=== PATIENT | male | born 1960 | race Caucasian/White ===

== ENCOUNTER 2020-08-22 10:26 | Outpatient (REF) | payer MEDICAID, SELFPAY ==
--- NOTE | 2020-08-22 10:35 | XR_ITS ---
EXAMINATION: XR CHEST CLINICAL INFORMATION: Moderate persistent asthma with acute exacerbation COMPARISON: Previous chest x-rays most recent April [address] May 2019 TECHNIQUE: 2 views of the chest were obtained. FINDINGS: The cardiac and mediastinal contours are normal. The lungs are clear. There is blunting at the left posterior lateral costophrenic angle questionable for pleural thickening or small left pleural effusion. This appears unchanged. There is no right pleural effusion. There are old bilateral rib fractures. There are degenerative changes of the spine. XR/XR chest 2V IMPRESSION: No evidence for acute disease in the chest. Stable blunting at the left costophrenic angle questionable for small left pleural effusion or pleural thickening.
== END 2020-08-22 10:27 | disposition home or self-care (01) ==
LOC: HO.XRAY 10:26
PROVIDERS: PCP Internal Medicine; Visit Provider Internal Medicine
DX: J45.41 Moderate persistent asthma with (acute) exacerbation (principal)
CPT/HCPCS: 71046

== ENCOUNTER → 2020-08-30 09:27 | Outpatient (BNVA) | payer MEDICAID, SELFPAY | PROVIDERS: PCP Internal Medicine; Visit Provider Surgery | DX: M79.5 Residual foreign body in soft tissue (principal) | CPT/HCPCS: 99202 ==

== ENCOUNTER → 2020-09-14 14:39 | Outpatient (BNVA) | payer MEDICAID, SELFPAY | PROVIDERS: PCP Internal Medicine; Visit Provider Hospitalist | DX: G47.33 Obstructive sleep apnea (adult) (pediatric) (principal); R93.89 Abnormal findings on diagnostic imaging of other specified body structures; R07.1 Chest pain on breathing; Z99.89 Dependence on other enabling machines and devices | CPT/HCPCS: 99212 ==

== ENCOUNTER 2020-10-03 12:28 | Outpatient (REF) | payer MEDICAID, SELFPAY ==
[2020-10-03 12:37] VITALS: BMI 40.6
[2020-10-03 12:38] VITALS: BP 142/85; PULSE 98; RESP 18; TEMP 37; O2SAT 95
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
== END 2020-10-03 12:29 | disposition home or self-care (01) ==
LOC: HO.MS 12:28
PROVIDERS: PCP Internal Medicine; Visit Provider Surgery
PROC: (CPT 10120; principal; 2020-10-03 13:50)
DX: M79.5 Residual foreign body in soft tissue (principal); Z18.12 Retained nonmagnetic metal fragments; G47.33 Obstructive sleep apnea (adult) (pediatric); R91.1 Solitary pulmonary nodule; E66.01 Morbid (severe) obesity due to excess calories; Z85.05 Personal history of malignant neoplasm of liver
CPT/HCPCS: 10120; 88304; 88305

== ENCOUNTER 2021-02-26 09:57 | Outpatient (REF) | payer MEDICAID, SELFPAY ==
[2021-02-26 12:09] LABS: MANUAL DIFF FLAG NO
[2021-02-26 12:11] LABS: Basophils Percent Auto 0.5 % (0-2); Eosinophils Absolute Auto 0.2 X10*3/uL (0.0-0.4); Eosinophils Percent Auto 1.8 % (0-4); Hematocrit 38.7 % (42-52); Hemoglobin 12.5 g/dl (14.0-18.0); Imm Gran Abs Auto 0.05 X10*3/uL (0.00-0.03); Imm Gran Pct Auto 0.6 % (0.0-0.4); Lymphocytes Absolute Auto 2.3 X10*3/uL (1.2-4.9); Lymphocytes Percent Auto 26.7 % (20-40); Mean Corpuscular HGB Conc 32.3 g/dl (31.0-36.0); Mean Corpuscular Hemoglobin 28.5 pg (27.0-33.0); Mean Corpuscular Volume 88.4 fL (80-98); Mean Platelet Volume 10.8 fL (9.4-12.4); Monocytes Absolute Auto 0.6 X10*3/uL (0.1-1.2); Monocytes Percent Auto 7.2 % (2-11); Neutrophils Absolute Auto 5.4 X10*3/uL (2.0-8.3); Neutrophils Percent Auto 63.2 % (45-73); Platelet Count 238 X10*3/uL (160-400); Red Blood Count 4.38 X10*6/uL (4.60-5.80); Red Cell Distribution Width 14.8 % (11.0-16.0); White Blood Count 8.5 X10*3/uL (4.8-10.8)
[2021-02-26 12:19] LABS: D Dimer 396 NG/ML
[2021-02-26 12:28] LABS: Anion Gap 12 (12-20); Blood Urea Nitrogen 12 mg/dL (9-16); Calcium 8.8 mg/dL (8.4-10.2); Carbon Dioxide 25 mmol/L (22-29); Chloride 107 mmol/L (96-108); Estimated Glomerular Filt Rate > 60; Glucose Random 139 mg/dL (60-115); Potassium 4.1 mmol/L (3.3-5.1); Sodium 140 mmol/L (135-145)
[2021-02-26 12:34] LABS: B Type Natriuretic Peptide 12 pg/mL (<100); Troponin-I High Sensitivity 9.5 ng/L (<3.5-35.0)
[2021-02-26 13:29] LABS: Erythrocyte Sedimentation Rate 40 MM/HR (0-15)
== END 2021-02-26 09:58 | disposition home or self-care (01) ==
LOC: HO.LAB 09:57
PROVIDERS: PCP Internal Medicine; Visit Provider Hospitalist
DX: R07.1 Chest pain on breathing (principal); R78.89 Finding of other specified substances, not normally found in blood; R93.89 Abnormal findings on diagnostic imaging of other specified body structures; G47.33 Obstructive sleep apnea (adult) (pediatric); R91.8 Other nonspecific abnormal finding of lung field; M79.5 Residual foreign body in soft tissue; Z99.89 Dependence on other enabling machines and devices
CPT/HCPCS: 36415; 80048; 83880; 84484; 85025; 85379; 85652; 99212

== ENCOUNTER 2021-02-27 15:46 | Outpatient (REF) | payer MEDICAID, SELFPAY ==
--- NOTE | ~2021-02-27 | CT_ITS ---
EXAMINATION: CT ANGIOGRAM OF THE CHEST WITH AND WITHOUT CONTRAST (CT PULMONARY ANGIOGRAM FOR PE) CLINICAL INFORMATION: Reason for Exam CP, ELEVATED D DIMER COMPARISON: None TECHNIQUE: Prior to contrast administration, noncontrast localization images were obtained. Subsequently, multidetector volumetric imaging was performed from the thoracic inlet to below the diaphragms following the administration of 80 mL Omnipaque 350 intravenous contrast. No contrast reaction reported Sagittal, coronal, and MIP oblique sagittal reformatted images were obtained on the CT workstation, uploaded to PACS, and reviewed. This CT examination was performed using dose optimization techniques as appropriate, variously including the following: *Automated exposure control *Adjustment of mA and/or kV according to patient size (this includes techniques or standardized protocols for targeted exams where dose is matched to indication/reason for exam; i.e. extremities or head) *Use of iterative reconstruction technique Total exam dose-length product 260 mGy-cm FINDINGS: QUALITY OF STUDY/CONTRAST BOLUS: Satisfactory. PULMONARY ARTERIES: No central or segmental pulmonary emboli. THORACIC AORTA: No aneurysm or dissection. LUNG: No focal consolidation, nodules or masses. PLEURA: No pleural effusion or pneumothorax. MEDIASTINUM: Normal heart size. No pericardial effusion. No hilar or mediastinal lymphadenopathy. No evidence of septal bowing or right heart strain. CHEST WALL/AXILLA: No axillary or internal mammary lymphadenopathy. OSSEOUS STRUCTURES: There is a left lateral bony fusion of fifth and sixth ribs. UPPER ABDOMEN: The liver is diffusely attenuated and mildly enlarged consistent with hepatic steatosis. Areas of focal fatty sparing in the left hepatic lobe. Anterior to the right hepatic lobe is a peritoneal nodule measuring 1 cm on axial image 39/6. No reflux of contrast into the hepatic veins to suggest elevated right heart pressures. CT/CT angio chest PE protocol IMPRESSION: No evidence of PE. No evidence of aortic dissection. The lungs are clear. VTE: negative.
[2021-02-27] MEDS: iohexoL 350 MG/ML 100 ML INFUS..BTL IV (16:28)
== END 2021-02-27 15:47 | disposition home or self-care (01) ==
LOC: HO.CT 15:46
PROVIDERS: Visit Provider Hospitalist
DX: R07.9 Chest pain, unspecified (principal); R06.00 Dyspnea, unspecified; R78.89 Finding of other specified substances, not normally found in blood
CPT/HCPCS: 71275; Q9967

== ENCOUNTER → 2021-02-28 10:06 | Outpatient (BNVA) | payer MEDICAID, SELFPAY | PROVIDERS: PCP Internal Medicine; Visit Provider Anesthesiology | DX: G89.4 Chronic pain syndrome (principal); M17.0 Bilateral primary osteoarthritis of knee; M46.1 Sacroiliitis, not elsewhere classified; C22.9 Malignant neoplasm of liver, not specified as primary or secondary | CPT/HCPCS: 99212 ==

== ENCOUNTER 2021-05-07 06:19 | Outpatient (REF) | payer MEDICAID, SELFPAY ==
--- NOTE | ~2021-05-07 | FL_ITS ---
EXAMINATION: XR FLUOROSCOPY WITH IMAGES CLINICAL INFORMATION: Sacroiliitis. COMPARISON: None. TECHNIQUE: Fluoroscopy performed by Griselda Bansal NP. Fluoroscopy time: 0.5 minutes DAP: 4.61 Gycm2 Images: 2 FINDINGS: There is a needle and contrast injection over the inferior bilateral sacroiliac joints. FL/FL guidance in treatment room IMPRESSION: Fluoroscopy guidance for sacroiliac joint pain management procedure.
== END 2021-05-07 06:20 | disposition home or self-care (01) ==
LOC: HO.RADIR 06:19
PROVIDERS: Visit Provider Anesthesiology
DX: M46.1 Sacroiliitis, not elsewhere classified (principal); M17.0 Bilateral primary osteoarthritis of knee; G89.4 Chronic pain syndrome; C22.9 Malignant neoplasm of liver, not specified as primary or secondary
CPT/HCPCS: 27096; J3300; Q9967

== ENCOUNTER → 2021-06-14 10:39 | Outpatient (BNVA) | payer MEDICAID, SELFPAY | PROVIDERS: PCP Internal Medicine; Visit Provider Hospitalist | DX: R91.8 Other nonspecific abnormal finding of lung field (principal); R07.1 Chest pain on breathing; R93.89 Abnormal findings on diagnostic imaging of other specified body structures; G47.33 Obstructive sleep apnea (adult) (pediatric); Z99.89 Dependence on other enabling machines and devices | CPT/HCPCS: 99212 ==

== ENCOUNTER 2021-07-10 12:54 | Outpatient (REF) | payer MEDICAID, SELFPAY ==
--- NOTE | ~2021-07-10 | XR_ITS ---
EXAMINATION: XR TIBIA FIBULA RIGHT XR KNEE RIGHT XR ANKLE LEFT CLINICAL INFORMATION: Pain of the right knee and right leg. Pain of left ankle and left foot COMPARISON: Prior radiographs of right knee from 01/03/2020 TECHNIQUE: Right knee, 4 views Right leg, 2 views Left ankle, 3 views FINDINGS: Right knee: No new findings compared to 01/03/2020. Small joint effusion is present. Again noted is tricompartmental osteophyte formation, nonuniform narrowing of joint spaces and intra-articular osteochondral bodies. No acute fracture. No suspicious lytic or blastic lesion. Right tibia-fibula: Tibia and fibula are intact. No fracture or periostitis. Bones have normal alignment at the ankle. There are small enthesophytes of the posterior and plantar surfaces of the calcaneus. Small well-corticated ossicles project distal to the fibular tip. No acute fracture in this area. The tibial and peroneal arteries of the leg are calcified. Left ankle: Alignment is normal. The talar dome is well-positioned within the ankle mortise. Small marginal osteophytes of the mildly degenerated ankle. The ankle joint space is maintained. Small Achilles insertion enthesophyte is noted. Small dorsal osteophytes are noted at the talonavicular, navicular-cuneiform and tarsometatarsal joints. Peripheral vascular calcifications are seen. XR/XR ankle LT min 3V IMPRESSION: * Chronic moderate to severe tricompartmental osteoarthritis of the right knee. * The right tibia and fibula are intact. No fracture or malalignment in the lower extremity. * Mild osteoarthritis of the left ankle. Small osteophytes also noted at the joints of the midfoot.
--- NOTE | ~2021-07-10 | XR_ITS ---
EXAMINATION: XR TIBIA FIBULA RIGHT XR KNEE RIGHT XR ANKLE LEFT CLINICAL INFORMATION: Pain of the right knee and right leg. Pain of left ankle and left foot COMPARISON: Prior radiographs of right knee from 01/03/2020 TECHNIQUE: Right knee, 4 views Right leg, 2 views Left ankle, 3 views FINDINGS: Right knee: No new findings compared to 01/03/2020. Small joint effusion is present. Again noted is tricompartmental osteophyte formation, nonuniform narrowing of joint spaces and intra-articular osteochondral bodies. No acute fracture. No suspicious lytic or blastic lesion. Right tibia-fibula: Tibia and fibula are intact. No fracture or periostitis. Bones have normal alignment at the ankle. There are small enthesophytes of the posterior and plantar surfaces of the calcaneus. Small well-corticated ossicles project distal to the fibular tip. No acute fracture in this area. The tibial and peroneal arteries of the leg are calcified. Left ankle: Alignment is normal. The talar dome is well-positioned within the ankle mortise. Small marginal osteophytes of the mildly degenerated ankle. The ankle joint space is maintained. Small Achilles insertion enthesophyte is noted. Small dorsal osteophytes are noted at the talonavicular, navicular-cuneiform and tarsometatarsal joints. Peripheral vascular calcifications are seen. XR/XR knee RT 4V IMPRESSION: * Chronic moderate to severe tricompartmental osteoarthritis of the right knee. * The right tibia and fibula are intact. No fracture or malalignment in the lower extremity. * Mild osteoarthritis of the left ankle. Small osteophytes also noted at the joints of the midfoot.
--- NOTE | ~2021-07-10 | XR_ITS ---
EXAMINATION: XR TIBIA FIBULA RIGHT XR KNEE RIGHT XR ANKLE LEFT CLINICAL INFORMATION: Pain of the right knee and right leg. Pain of left ankle and left foot COMPARISON: Prior radiographs of right knee from 01/03/2020 TECHNIQUE: Right knee, 4 views Right leg, 2 views Left ankle, 3 views FINDINGS: Right knee: No new findings compared to 01/03/2020. Small joint effusion is present. Again noted is tricompartmental osteophyte formation, nonuniform narrowing of joint spaces and intra-articular osteochondral bodies. No acute fracture. No suspicious lytic or blastic lesion. Right tibia-fibula: Tibia and fibula are intact. No fracture or periostitis. Bones have normal alignment at the ankle. There are small enthesophytes of the posterior and plantar surfaces of the calcaneus. Small well-corticated ossicles project distal to the fibular tip. No acute fracture in this area. The tibial and peroneal arteries of the leg are calcified. Left ankle: Alignment is normal. The talar dome is well-positioned within the ankle mortise. Small marginal osteophytes of the mildly degenerated ankle. The ankle joint space is maintained. Small Achilles insertion enthesophyte is noted. Small dorsal osteophytes are noted at the talonavicular, navicular-cuneiform and tarsometatarsal joints. Peripheral vascular calcifications are seen. XR/XR tibia fibula RT 2V IMPRESSION: * Chronic moderate to severe tricompartmental osteoarthritis of the right knee. * The right tibia and fibula are intact. No fracture or malalignment in the lower extremity. * Mild osteoarthritis of the left ankle. Small osteophytes also noted at the joints of the midfoot.
== END 2021-07-10 12:55 | disposition home or self-care (01) ==
LOC: HO.XRAY 12:54
PROVIDERS: Visit Provider Internal Medicine
DX: M25.561 Pain in right knee (principal); M25.572 Pain in left ankle and joints of left foot; M79.604 Pain in right leg
CPT/HCPCS: 73564; 73590; 73610

== ENCOUNTER → 2021-09-12 10:08 | Outpatient (BNVA) | payer MEDICAID, SELFPAY | PROVIDERS: PCP Internal Medicine; Visit Provider Hospitalist | DX: J45.40 Moderate persistent asthma, uncomplicated (principal); G47.33 Obstructive sleep apnea (adult) (pediatric); Z99.89 Dependence on other enabling machines and devices | CPT/HCPCS: 99212 ==

== ENCOUNTER 2022-04-11 09:36 | Outpatient (REF) | payer MEDICAID, SELFPAY ==
[2022-04-11 09:57] LABS: MANUAL DIFF FLAG NO
[2022-04-11 10:51] LABS: Basophils Percent Auto 0.2 % (0-2); Eosinophils Absolute Auto 0.1 X10*3/uL (0.0-0.4); Hematocrit 37.4 % (42.0-52.0); Hemoglobin 12.2 g/dl (14.0-18.0); Imm Gran Abs Auto 0.02 X10*3/uL (0.00-0.03); Imm Gran Pct Auto 0.4 % (0.0-0.4); Lymphocytes Absolute Auto 2.1 X10*3/uL (1.2-4.9); Lymphocytes Percent Auto 40.7 % (20-40); Mean Corpuscular HGB Conc 32.6 g/dl (31.0-36.0); Mean Corpuscular Hemoglobin 29.2 pg (27.0-33.0); Mean Corpuscular Volume 89.5 fL (80.0-98.0); Mean Platelet Volume 11.4 fL (9.4-12.4); Monocytes Absolute Auto 0.6 X10*3/uL (0.1-1.2); Neutrophils Absolute Auto 2.4 x10*3/uL (2.0-8.3); Neutrophils Percent Auto 45.7 % (45-73); Platelet Count 205 X10*3/uL (160-400); Red Blood Count 4.18 X10*6/uL (4.60-5.80); Red Cell Distribution Width 14.2 % (11.0-16.0); White Blood Count 5.2 X10*3/uL (4.8-10.8)
[2022-04-11 11:23] LABS: Alanine Aminotransferase 32 U/L (0-40); Albumin Level 3.5 g/dL (3.5-5.0); Alkaline Phosphatase 117 U/L (39-117); Anion Gap 13 (12-20); Aspartate Amino Transferase 30 U/L (5-37); Bilirubin Total 0.6 mg/dL (0.0-1.0); Blood Urea Nitrogen 11 mg/dL (9-16); Calcium 8.4 mg/dL (8.4-10.2); Carbon Dioxide 25 mmol/L (22-29); Chloride 104 mmol/L (96-108); Estimated Glomerular Filt Rate > 60; Glucose Random 145 mg/dL (60-115); Potassium 3.8 mmol/L (3.3-5.1); Sodium 138 mmol/L (135-145)
[2022-04-11 11:41] LABS: Estimated Average Glucose 200 mg/dL; Hemoglobin A1c % 8.6 %
== END 2022-04-11 09:37 | disposition home or self-care (01) ==
LOC: HO.LAB 09:36
PROVIDERS: PCP Internal Medicine; Visit Provider Surgery
DX: R10.9 Unspecified abdominal pain (principal); E66.01 Morbid (severe) obesity due to excess calories; Z68.36 Body mass index [BMI] 36.0-36.9, adult; K42.9 Umbilical hernia without obstruction or gangrene; J45.40 Moderate persistent asthma, uncomplicated; C22.9 Malignant neoplasm of liver, not specified as primary or secondary; R06.00 Dyspnea, unspecified; G47.33 Obstructive sleep apnea (adult) (pediatric); R91.1 Solitary pulmonary nodule; E11.9 Type 2 diabetes mellitus without complications; Z99.89 Dependence on other enabling machines and devices
CPT/HCPCS: 36415; 80053; 83036; 85025; 99202

== ENCOUNTER 2022-05-01 09:00 | Outpatient (REF) | payer MEDICAID, SELFPAY ==
--- NOTE | ~2022-05-01 | CT_ITS ---
EXAMINATION: CT ABDOMEN AND PELVIS WITHOUT CONTRAST CLINICAL INFORMATION: Umbilical hernia without obstruction or gangrene. COMPARISON: CT abdomen pelvis 07/19/2019. TECHNIQUE: Multidetector volumetric imaging was performed from the superior aspect of the liver through the pubic symphysis. Sagittal and coronal reformatted images were obtained on the technologist's workstation. This CT examination was performed using dose optimization techniques as appropriate, variously including the following: *Automated exposure control *Adjustment of mA and/or kV according to patient size (this includes techniques or standardized protocols for targeted exams where dose is matched to indication/reason for exam; i.e. extremities or head) *Use of iterative reconstruction technique DLP: 818 mGy-cm FINDINGS: LUNG BASES: Platelike atelectatic changes left lung base. Right lung base is clear. There are old healed bilateral posterior rib fractures, likely ninth ribs. LIVER, GALLBLADDER, AND BILIARY TREE: The liver is normal in size, shape, and diffusely attenuated with a focal area of normal density scattered throughout the right and left hepatic lobes likely normal hepatic parenchyma. It is unchanged from 2019. No focal hepatic lesion or biliary ductal dilatation is present. The gallbladder is unremarkable with no evidence of radiopaque gallstones, gallbladder wall thickening, or obvious pericholecystic inflammatory changes. PANCREAS: Unremarkable. SPLEEN: Unremarkable. ADRENAL GLANDS: Unremarkable. KIDNEYS AND URETERS: The kidneys are normal in size, shape, and attenuation. There is a punctate 1 mm radiopaque calcification or stone upper pole left kidney. No additional radiopaque calculi or calcification seen. No hydronephrosis or hydroureter. No perinephric stranding. There is partially exophytic 4.3 cm cyst along the posterior upper/mid cortex right kidney. BLADDER: Unremarkable. GASTROINTESTINAL TRACT: There is scattered stool and gas seen throughout the colon without significant distention. Surgical sutures are seen along the proximal ascending colon with patent lumen. The small bowel loops are normal caliber. Appendix is not visualized. ABDOMINAL WALL: There is a small midline scrotal hernia containing fat on sagittal image 122/5. LYMPH NODES: Normal. VASCULAR: Unremarkable. PELVIC VISCERA: Unremarkable. OSSEOUS STRUCTURES: There are degenerative disc changes and vacuum disc phenomena L5-S1, L4-L5 and L3-L4 disc levels and mild spondylosis. No aggressive lytic or sclerotic process seen. CT/CT abdomen pelvis wo IV con IMPRESSION: Small midline supraumbilical abdominal wall hernia containing fat. Suspect 1-3 mm radiopaque calculi/calcification upper pole left kidney. No hydroureteronephrosis in either side. Simple cyst mid/lower pole right kidney. Fleischner guidelines were followed.
== END 2022-05-01 09:01 | disposition home or self-care (01) ==
LOC: HO.CT 09:00
PROVIDERS: PCP Internal Medicine; Visit Provider Surgery
DX: E66.01 Morbid (severe) obesity due to excess calories (principal); K42.9 Umbilical hernia without obstruction or gangrene; G47.33 Obstructive sleep apnea (adult) (pediatric); Z99.89 Dependence on other enabling machines and devices
CPT/HCPCS: 74176

== ENCOUNTER → 2022-05-08 15:18 | Outpatient (BNVA) | payer MEDICAID, SELFPAY | PROVIDERS: PCP Internal Medicine; Visit Provider Hospitalist | DX: G47.33 Obstructive sleep apnea (adult) (pediatric) (principal); J45.40 Moderate persistent asthma, uncomplicated; R07.9 Chest pain, unspecified; Z99.89 Dependence on other enabling machines and devices | CPT/HCPCS: 99212 ==

== ENCOUNTER 2022-05-09 10:07 | Outpatient (REF) | payer MEDICAID, SELFPAY ==
--- NOTE | ~2022-05-09 | XR_ITS ---
EXAMINATION: XR CHEST CLINICAL INFORMATION: Chest pain. COMPARISON: CT angiogram of February 27, 2021 and chest x-ray of August 22, 2020 TECHNIQUE: 2 views of the chest were obtained. FINDINGS: There is chronic pleural-parenchymal disease seen at the left base. Old healed rib fractures evident. Calcification anterior longitudinal ligament noted mid thoracic spine. Heart normal size. No evidence of pulmonary edema. No pneumothorax. XR/XR chest 2V IMPRESSION: No acute parenchymal disease. Chronic findings as described.
== END 2022-05-09 10:08 | disposition home or self-care (01) ==
LOC: HO.XRAY 10:07
PROVIDERS: Visit Provider Hospitalist
DX: R07.9 Chest pain, unspecified (principal); K42.9 Umbilical hernia without obstruction or gangrene; E66.01 Morbid (severe) obesity due to excess calories; E11.65 Type 2 diabetes mellitus with hyperglycemia; Z71.3 Dietary counseling and surveillance
CPT/HCPCS: 71046; 99212

== ENCOUNTER 2022-08-08 13:21 | Outpatient (REF) | payer MEDICAID, SELFPAY ==
[2022-08-08 14:16] LABS: MANUAL DIFF FLAG NO
[2022-08-08 14:32] LABS: Basophils Absolute Auto 0.1 X10*3/uL (0.0-0.2); Eosinophils Absolute Auto 0.2 X10*3/uL (0.0-0.4); Eosinophils Percent Auto 1.9 % (0-4); Hematocrit 41.9 % (42.0-52.0); Hemoglobin 13.4 g/dl (14.0-18.0); Imm Gran Abs Auto 0.02 X10*3/uL (0.00-0.03); Imm Gran Pct Auto 0.2 % (0.0-0.4); Lymphocytes Absolute Auto 2.3 X10*3/uL (1.2-4.9); Lymphocytes Percent Auto 27.2 % (20-40); Mean Corpuscular Hemoglobin 28.9 pg (27.0-33.0); Mean Corpuscular Volume 90.3 fL (80.0-98.0); Mean Platelet Volume 10.9 fL (9.4-12.4); Monocytes Absolute Auto 0.7 X10*3/uL (0.1-1.2); Monocytes Percent Auto 8.1 % (2-11); Neutrophils Absolute Auto 5.2 x10*3/uL (2.0-8.3); Neutrophils Percent Auto 61.6 % (45-73); Platelet Count 237 X10*3/uL (160-400); Red Blood Count 4.64 X10*6/uL (4.60-5.80); Red Cell Distribution Width 13.6 % (11.0-16.0); White Blood Count 8.4 X10*3/uL (4.8-10.8)
[2022-08-08 14:43] LABS: Amphetamine Screen Urine Not Detected (Not Detect); Barbiturates, Urine Not Detected (Not Detect); Benzodiazepines Screen Urine Not Detected (Not Detect); Cannabinoid Screen Urine Not Detected (Not Detect); Cocaine Screen Urine POSITIVE (Not Detect); Fentanyl, urine Not Detected (Not Detect); Opiate Screen Urine Not Detected (Not Detect); Phencyclidine Screen Urine Not Detected (Not Detect)
[2022-08-08 14:45] LABS: Partial Thromboplastin Time 28.1 SEC (26.0-36.4)
[2022-08-08 14:46] LABS: Estimated Average Glucose 206 mg/dL; Hemoglobin A1c % 8.8 %
[2022-08-08 14:54] LABS: Alanine Aminotransferase 26 U/L (0-40); Albumin Level 3.7 g/dL (3.5-5.0); Alkaline Phosphatase 127 U/L (39-117); Anion Gap 11 (12-20); Aspartate Amino Transferase 26 U/L (5-37); Bilirubin Total 0.6 mg/dL (0.0-1.0); Blood Urea Nitrogen 13 mg/dL (9-16); Calcium 9.5 mg/dL (8.4-10.2); Carbon Dioxide 31 mmol/L (22-29); Chloride 106 mmol/L (96-108); Estimated Glomerular Filt Rate > 60; Glucose Random 117 mg/dL (60-115); Potassium 4.6 mmol/L (3.3-5.1); Sodium 143 mmol/L (135-145); Total Protein 8.1 g/dL (6.5-8.0)
[2022-08-12 18:54] LABS: Cotinine, U 15 ng/mL; Nicotine, U <2 ng/mL
== END 2022-08-08 13:22 | disposition home or self-care (01) ==
LOC: HO.LAB 13:21
PROVIDERS: PCP Internal Medicine; Visit Provider Surgery
DX: K42.9 Umbilical hernia without obstruction or gangrene (principal); D64.9 Anemia, unspecified; R07.9 Chest pain, unspecified; E11.65 Type 2 diabetes mellitus with hyperglycemia; J45.40 Moderate persistent asthma, uncomplicated; C22.9 Malignant neoplasm of liver, not specified as primary or secondary; R06.00 Dyspnea, unspecified; E66.01 Morbid (severe) obesity due to excess calories; R91.1 Solitary pulmonary nodule; R91.8 Other nonspecific abnormal finding of lung field; Z99.89 Dependence on other enabling machines and devices; Z79.899 Other long term (current) drug therapy
CPT/HCPCS: 80053; 80307; 80323; 83036; 84134; 85025; 85610; 85730; 99212

== ENCOUNTER → 2022-08-22 12:48 | Outpatient (BNVA) | payer MEDICAID, SELFPAY | PROVIDERS: PCP Nurse Practitioner Primary Care; Visit Provider Dietitian, Registered | DX: E66.01 Morbid (severe) obesity due to excess calories (principal) | CPT/HCPCS: 97802 ==

== ENCOUNTER → 2022-11-11 15:08 | Outpatient (BNVA) | payer MEDICAID, SELFPAY | PROVIDERS: PCP Nurse Practitioner Primary Care; Visit Provider Hospitalist | DX: J45.40 Moderate persistent asthma, uncomplicated (principal); G47.33 Obstructive sleep apnea (adult) (pediatric); R06.00 Dyspnea, unspecified; Z99.89 Dependence on other enabling machines and devices | CPT/HCPCS: 99212 ==

== ENCOUNTER → 2023-01-14 10:15 | Outpatient (BNVA) | payer MEDICAID, SELFPAY | PROVIDERS: PCP Nurse Practitioner Primary Care; Visit Provider Surgery | DX: K42.9 Umbilical hernia without obstruction or gangrene (principal); E11.65 Type 2 diabetes mellitus with hyperglycemia; D64.9 Anemia, unspecified; J45.40 Moderate persistent asthma, uncomplicated; G89.4 Chronic pain syndrome; C22.9 Malignant neoplasm of liver, not specified as primary or secondary; G47.33 Obstructive sleep apnea (adult) (pediatric); E66.01 Morbid (severe) obesity due to excess calories; F14.10 Cocaine abuse, uncomplicated; R07.9 Chest pain, unspecified; R06.00 Dyspnea, unspecified; R91.1 Solitary pulmonary nodule; R91.8 Other nonspecific abnormal finding of lung field; Z99.89 Dependence on other enabling machines and devices; Z68.39 Body mass index [BMI] 39.0-39.9, adult | CPT/HCPCS: 99212 ==

== ENCOUNTER 2023-05-25 07:30 | Outpatient (REF) | payer MEDICAID, SELFPAY ==
[2023-05-25 07:45] LABS: MANUAL DIFF FLAG NO
[2023-05-25 08:39] LABS: Basophils Absolute Auto 0.1 X10*3/uL (0.0-0.2); Basophils Percent Auto 0.7 % (0-2); Eosinophils Absolute Auto 0.2 X10*3/uL (0.0-0.4); Eosinophils Percent Auto 2.8 % (0-4); Hematocrit 39.7 % (42.0-52.0); Hemoglobin 12.9 g/dl (14.0-18.0); Imm Gran Abs Auto 0.03 X10*3/uL (0.00-0.03); Imm Gran Pct Auto 0.4 % (0.0-0.4); Lymphocytes Absolute Auto 2.3 X10*3/uL (1.2-4.9); Lymphocytes Percent Auto 30.3 % (20-40); Mean Corpuscular HGB Conc 32.5 g/dl (31.0-36.0); Mean Corpuscular Hemoglobin 29.4 pg (27.0-33.0); Mean Corpuscular Volume 90.4 fL (80.0-98.0); Mean Platelet Volume 11.3 fL (9.4-12.4); Monocytes Absolute Auto 0.7 X10*3/uL (0.1-1.2); Monocytes Percent Auto 9.2 % (2-11); Neutrophils Absolute Auto 4.3 x10*3/uL (2.0-8.3); Neutrophils Percent Auto 56.6 % (45-73); Platelet Count 234 X10*3/uL (160-400); Red Blood Count 4.39 X10*6/uL (4.60-5.80); Red Cell Distribution Width 13.7 % (11.0-16.0); White Blood Count 7.6 X10*3/uL (4.8-10.8)
[2023-05-25 08:45] LABS: Estimated Average Glucose 177 mg/dL; Hemoglobin A1c % 7.8 % (<6.0)
[2023-05-25 09:00] LABS: Amphetamine Screen Urine Not Detected (Not Detect); Barbiturates, Urine Not Detected (Not Detect); Benzodiazepines Screen Urine Not Detected (Not Detect); Cannabinoid Screen Urine Not Detected (Not Detect); Cocaine Screen Urine POSITIVE (Not Detect); Fentanyl, urine Not Detected (Not Detect); Opiate Screen Urine Not Detected (Not Detect); Phencyclidine Screen Urine Not Detected (Not Detect)
[2023-05-25 09:03] LABS: Alanine Aminotransferase 28 U/L (0-40); Albumin Level 3.4 g/dL (3.5-5.0); Alkaline Phosphatase 147 U/L (39-117); Anion Gap 12 (12-20); Aspartate Amino Transferase 22 U/L (5-37); Bilirubin Total 0.5 mg/dL (0.0-1.0); Blood Urea Nitrogen 10 mg/dL (9-16); Calcium 8.9 mg/dL (8.4-10.2); Carbon Dioxide 24 mmol/L (22-29); Chloride 106 mmol/L (96-108); Estimated Glomerular Filt Rate > 60; Glucose Random 194 mg/dL (60-115); Potassium 3.5 mmol/L (3.3-5.1); Sodium 138 mmol/L (135-145)
[2023-05-31 01:58] LABS: Cotinine, U 16 ng/mL; Nicotine, U 5 ng/mL
== END 2023-05-25 07:31 | disposition home or self-care (01) ==
LOC: HO.LAB 07:30
PROVIDERS: Visit Provider Surgery
DX: K42.9 Umbilical hernia without obstruction or gangrene (principal); E11.65 Type 2 diabetes mellitus with hyperglycemia; D64.9 Anemia, unspecified; F14.10 Cocaine abuse, uncomplicated; J45.909 Unspecified asthma, uncomplicated; G89.4 Chronic pain syndrome; C22.9 Malignant neoplasm of liver, not specified as primary or secondary; G47.33 Obstructive sleep apnea (adult) (pediatric); E66.01 Morbid (severe) obesity due to excess calories; Z99.89 Dependence on other enabling machines and devices
CPT/HCPCS: 80053; 80307; 80323; 83036; 84134; 85025

== ENCOUNTER 2023-05-27 10:39 | Outpatient (AMB) | payer MEDICAID, SELFPAY ==
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
[2023-05-27 10:41] VITALS: BP 144/71; PULSE 95; TEMP 37.4; O2SAT 95; BMI 39.2
== END 2023-05-27 10:59 | disposition home or self-care (01) ==
PROVIDERS: PCP Nurse Practitioner Primary Care; Visit Provider Surgery
DX: E11.65 Type 2 diabetes mellitus with hyperglycemia (principal); K42.9 Umbilical hernia without obstruction or gangrene; D64.9 Anemia, unspecified; F14.10 Cocaine abuse, uncomplicated; G47.33 Obstructive sleep apnea (adult) (pediatric); Z99.89 Dependence on other enabling machines and devices; Z72.0 Tobacco use
CPT/HCPCS: 99214

== ENCOUNTER → 2023-05-27 10:39 | Outpatient (BNVA) | payer MEDICAID, SELFPAY | PROVIDERS: PCP Nurse Practitioner Primary Care; Visit Provider Surgery | DX: K42.9 Umbilical hernia without obstruction or gangrene (principal); E11.65 Type 2 diabetes mellitus with hyperglycemia; D64.9 Anemia, unspecified; F14.10 Cocaine abuse, uncomplicated; G47.33 Obstructive sleep apnea (adult) (pediatric); Z99.89 Dependence on other enabling machines and devices; Z72.0 Tobacco use | CPT/HCPCS: 99212 ==

== ENCOUNTER 2023-06-24 08:01 | Outpatient (AMB) | payer MEDICAID, SELFPAY ==
--- NOTE | 2023-06-24 08:26 | MHC.OFFVIS ---
Intake Vital Signs 06/24/23 08:27 Height 5 ft 9 in Weight 265 lb 6.985 oz BMI 39.2 BP 128/70 Blood Pressure Location Lt brachial Position Sitting Pulse 83 Pulse Source Pulse Oximeter Pulse Oximetry (%) 96 Oxygen Delivery Method Room Air Intake Visit Reasons: Shortness of breath Web Retailer Required: No Allergies No Known Allergies Allergy (Verified 06/24/23 08:29) HPI HPI Comments History of Present Illness Details The patient is a 62-year-old gentleman with ongoing respiratory issues. He complains of significant shortness of breath with minimal activity. Moderate in severity. He was admitted to [facility] for his worsening symptoms. During that evaluation he did undergo a CT scan of the chest ruling out pulmonary emboli or active pulmonary disease. Of note he did have some fatty infiltration of the liver with multiple lesions consistent with this history of hepatocellular carcinoma. The patient did not qualify for oxygen was discharged home. In the meantime the patient did have a sleep study at [facility] for ongoing symptoms of sleep apnea which include daytime drowsiness and elevated [place] score of 12/24. He was noted to have significant sleep apnea. And the recommendation is for him to start CPAP therapy as soon as possible. In the office we also performed a 6 minutes walk test due to his shortness of breath. Again, he desaturated down to the low 90s but does not qualify for oxygen supplementation. He started having difficulties tolerating CPAP. He states that he was waking up for short of breath with it. He wasn't sure if he was getting too little pressure. We did download the machine in appears that his average pressure 9.8. Therefore, changes machine to CPAP set up with a pressure of 10 cm and a ramp of 8 cm. He will try that and bring the machine in few weeks to see if we need to further adjusted. 11/11/2022 the patient is here for a pulmonary follow-up visit. The patient has been struggling with multiple things. Having significant shortness of breath even with minimal activity. Also complains palpitations. He has been struggling with his CPAP. Seems like sometimes he wakes up very short of breath while using the CPAP almost like the machine is not able to getting pressures that adequate to treat his of obstructive apnea and waking up with an apneic episodes. I did download the machine. It appears that his machine is set up with a minimum pressure of 12 and a maximum pressure of 18. However, the machine staying at a pressure of 12. Does not appear to be regulating. This is an old machine greater than 5 years old. It may be that is no longer working effectively. Will increase the pressure at this time to 14-18. However, based on the fact does not appear to be working appropriately and also request a new replacement APAP for him. I know that he has been very adherent to the therapy in the fact that it is not working and increasing the pressures that he needs it is a problem. The patient is also struggling with his weight. He has to lose weight in order to undergo a hernia repair. He has already lost around 20 lb. He continues with respiratory therapy. In the office visit we did go for brief walking oximetry. He maintained a good pulse ox of 95% although he was tachycardic up to 116 with minimal activity. He appears to be volume overloaded will give him another few days of Lasix to try to improve his volume status. Patient also has chest congestion go ahead and treat his and chronic bronchitis and will also optimize his respiratory therapy. I am hopeful we can improve his breathing in order for him to stay active continues to lose weight. 06/24/2023 the patient is here for a pulmonary follow-up visit. The patient has been doing well from a respiratory standpoint. Patient has been using his inhalers as prescribed. He has not required her short-acting beta agonists and has not required any prednisone or antibiotics. He has also been using CPAP regularly. He uses it every night more than 4 hours and also uses it during the daytime as needed. He finds it very helpful. He has not been able to get any supplies. We did request a replacement machine during the last visit but he did not get 1. Will go ahead and continue to work with his older machine that is still working partially. Will go ahead and request additional supplies however to make sure that he continues to be functional. The patient will be following up with his surgeon regarding his hepatocellular carcinoma and also considering bariatric surgery. The patient is also following up closely with orthopedic surgery regarding his arthritis of the knees. Clinically from a respiratory status the patient is doing well may be able to proceed with surgery. [facility] Medical History Chest pain Asthma Sacroiliitis Chronic pain syndrome Bilateral primary osteoarthritis of knee Liver cancer Dyspnea Chest pain Abnormal chest x-ray DIANNA on CPAP Abnormal chest x-ray with multiple lung nodules Lung nodule seen on imaging study Foreign body (FB) in soft tissue Liver cancer Morbid obesity Surgical History History of incisional hernia repair (10/05/18) History of lung surgery Alcohol intake: never Patient Tobacco Use Status: Never used Tobacco Review of Systems Const Denies daytime sleepiness, Denies excessive sweating, Denies fatigue, Denies snoring, Denies stops breathing during sleep and Reports weight loss Eyes Denies change in vision ENT Reports Normal hearing present Card Reports chest pain, Denies chest pain with activity, Denies diaphoresis, Denies syncope, Denies rapid heart rate, Denies pedal edema, Reports dyspnea and Reports dyspnea on exertion Resp Denies chest congestion, Reports cough, Denies hemoptysis, Denies pain on inspiration, Denies pain with cough, Reports dyspnea, Reports dyspnea on exertion, Denies snoring and Reports wheezing GI Denies abdominal pain, Denies belching, Denies melena and Denies bloating Denies urinary incontinence Musc Reports as per HPI Neuro Reports Normal hearing present, Denies confusion, Denies syncope, Denies memory loss, Denies seizure-like activity and Denies Sensory deficit (Neuro) Psych Denies confusion, Denies irritability, Denies anhedonia, Denies memory loss, Denies visual hallucinations, Denies hallucinations, Denies tactile hallucinations, Denies homicidal ideation and Denies suicidal ideation Endo Denies excessive sweating and Denies fatigue Aller/Immun Reports wheezing Physical Exam Vital Signs: Last Vital Signs Pulse 83 06/24/23 08:27 BP 128/70 06/24/23 08:27 Pulse Ox 96 06/24/23 08:27 Oxygen Delivery Method Room Air 06/24/23 08:27 BMI result Body Mass Index 39.2 Const General: No confusion Orientation/consciousness: No confusion HEENT General nose exam: Abnormal external nose present and Nasal discharge present Chest Chest palpation & inspection: normal inspection of the chest Resp Auscultation: no rales, no rhonchi, no wheezes and diminished lung sounds Cardio Rate: regular rate Rhythm: regular rhythm Heart sounds: S1 normal heart sound present and S2 normal heart sound present GI Palpation (GI): Soft to palpation and nontender Auscultation: normal bowel sounds Neuro General: No confusion Cranial nerves: Yes Normal hearing present Sensory Exam: No Sensory deficit (Neuro) Office Procedures Flu Questionnaire Does the patient have a severe egg allergy?: No Does the patient have severe life threatening allergies?: No Does the patient have a fever or illness today?: No Has the patient ever had Guillain-Mize Syndrome?: No Has the patient ever had any past reaction to a flu shot?: No Immunizations flu vacc [id number] 6mos up(PF) 60 mcg(15 mcgx4)/0.5 mL IM syringe Performing Provider: Terry Torrez MD [place] [facility] [place] [facility] Administered by: Luisa Barfield LPN on 06/24/23 08:45 Dose Route Admin Location Dispensed Lot Number Expiration Date NDC Lead Cargo Mover 0.5 mL IM Left Deltoid 0.5 mL [id number] 01/31/24 47125-593-69 [employer] VIS Given Date VIS Provided VIS Publication Date 06/24/23 Single Vaccine 21 Eligibility Eligibility Date Funding Source Not [facility] Eligible 06/24/23 Private Assessment & Plan Assessment & Plan (1) DIANNA on CPAP: Code(s): G47.33 - Obstructive sleep apnea (adult) (pediatric); Z99.89 - Dependence on other enabling machines and devices (2) Asthma: Code(s): J45.909 - Unspecified asthma, uncomplicated Qualifiers: Asthma complication type: uncomplicated Asthma persistence: persistent Asthma severity: moderate Qualified Code(s): J45.40 - Moderate persistent asthma, uncomplicated (3) Dyspnea: Code(s): R06.00 - Dyspnea, unspecified Qualifiers: Dyspnea type: dyspnea on exertion Qualified Code(s): R06.09 - Other forms of dyspnea (4) Liver cancer: Code(s): C22.9 - Malignant neoplasm of liver, not specified as primary or secondary Qualifiers: Liver malignancy type: hepatocellular carcinoma Qualified Code(s): C22.0 - Liver cell carcinoma Plan Low sodium diet continue Trelegy GEMMA as needed continue APAP 14-18, needs supplies gabapentin at night to improve sleep anf neuro pathic pain F/U 6 months Orders: Orders Influenza Immunization 06/24/23 J45.909 - Unspecified asthma, uncomplicated Coding Level of Care Code Est Pt Level 4 (74268) Diagnoses DIANNA on CPAP G47.33; Z99.89 Moderate persistent asthma without complication J45.40 Asthma complication type: uncomplicated Asthma persistence: persistent Asthma severity: moderate Dyspnea on exertion R06.09 Dyspnea type: dyspnea on exertion Hepatocellular carcinoma C22.0 Liver malignancy type: hepatocellular carcinoma Time Spent (min) 16
[2023-06-24 08:27] VITALS: BP 128/70; PULSE 83; O2SAT 96; BMI 39.2
== END 2023-06-24 09:07 | disposition home or self-care (01) ==
PROVIDERS: PCP Nurse Practitioner Primary Care; Referring Provider Nurse Practitioner Primary Care; Visit Provider Hospitalist
DX: G47.33 Obstructive sleep apnea (adult) (pediatric) (principal); Z99.89 Dependence on other enabling machines and devices; J45.40 Moderate persistent asthma, uncomplicated; R06.09 Other forms of dyspnea; C22.0 Liver cell carcinoma
CPT/HCPCS: 99214

== ENCOUNTER → 2023-06-24 08:01 | Outpatient (BNVA) | payer MEDICAID, SELFPAY | PROVIDERS: PCP Nurse Practitioner Primary Care; Visit Provider Hospitalist | DX: J45.40 Moderate persistent asthma, uncomplicated (principal); R06.09 Other forms of dyspnea; G47.33 Obstructive sleep apnea (adult) (pediatric); C22.0 Liver cell carcinoma; Z99.89 Dependence on other enabling machines and devices; Z23 Encounter for immunization | CPT/HCPCS: 90471; 90686; 99212 ==

== ENCOUNTER 2023-08-18 14:45 | Outpatient (REF) | payer MEDICAID, SELFPAY ==
--- NOTE | ~2023-08-18 | XR_ITS ---
EXAMINATION: XR HAND, LEFT XR WRIST, LEFT CLINICAL INFORMATION: Fall. Left wrist and hand pain. COMPARISON: Plain film of the left hand dated November 02, 2018. TECHNIQUE: PA, lateral, and oblique views of the left hand. PA, lateral, and oblique views of the left wrist. XR/XR hand LT min 3V FINDINGS/IMPRESSION: The fingers overlap on another on lateral view, limiting the study. Examination demonstrates severe osteoarthritis involving the first carpal-metacarpal joint, with associated subluxation, similar compared with November 02, 2018. There may be mild degenerative changes of the STT joint, worse. Severe degenerative changes involve the second through fifth PIP and DIP joints, worse. Suspect negative ulnar variance. No acute fracture or dislocation identified. Small vessel arterial calcification suggests diabetic and/or renal calcific atherosclerosis.
--- NOTE | ~2023-08-18 | XR_ITS ---
EXAMINATION: XR HAND, LEFT XR WRIST, LEFT CLINICAL INFORMATION: Fall. Left wrist and hand pain. COMPARISON: Plain film of the left hand dated November 02, 2018. TECHNIQUE: PA, lateral, and oblique views of the left hand. PA, lateral, and oblique views of the left wrist. XR/XR wrist LT min 3V FINDINGS/IMPRESSION: The fingers overlap on another on lateral view, limiting the study. Examination demonstrates severe osteoarthritis involving the first carpal-metacarpal joint, with associated subluxation, similar compared with November 02, 2018. There may be mild degenerative changes of the STT joint, worse. Severe degenerative changes involve the second through fifth PIP and DIP joints, worse. Suspect negative ulnar variance. No acute fracture or dislocation identified. Small vessel arterial calcification suggests diabetic and/or renal calcific atherosclerosis.
== END 2023-08-18 14:46 | disposition home or self-care (01) ==
LOC: HO.HHCX 14:45
PROVIDERS: Visit Provider Nurse Practitioner Primary Care
DX: M25.532 Pain in left wrist (principal)
CPT/HCPCS: 73110; 73130

== ENCOUNTER 2023-12-11 13:26 | Outpatient (REF) | payer MEDICAID, SELFPAY ==
[2023-12-11 15:11] LABS: MANUAL DIFF FLAG NO
[2023-12-11 15:45] LABS: Basophils Absolute Auto 0.1 X10*3/uL (0.0-0.2); Basophils Percent Auto 0.7 % (0-2); Eosinophils Absolute Auto 0.2 X10*3/uL (0.0-0.4); Hematocrit 39.3 % (42.0-52.0); Hemoglobin 12.9 g/dl (14.0-18.0); Imm Gran Abs Auto 0.05 X10*3/uL (0.00-0.03); Imm Gran Pct Auto 0.6 % (0.0-0.4); Lymphocytes Absolute Auto 2.7 X10*3/uL (1.2-4.9); Lymphocytes Percent Auto 31.8 % (20-40); Mean Corpuscular HGB Conc 32.8 g/dl (31.0-36.0); Mean Corpuscular Hemoglobin 29.3 pg (27.0-33.0); Mean Corpuscular Volume 89.1 fL (80.0-98.0); Mean Platelet Volume 11.3 fL (9.4-12.4); Monocytes Absolute Auto 0.7 X10*3/uL (0.1-1.2); Neutrophils Absolute Auto 4.8 x10*3/uL (2.0-8.3); Neutrophils Percent Auto 56.9 % (45-73); Platelet Count 241 X10*3/uL (160-400); Red Blood Count 4.41 X10*6/uL (4.60-5.80); Red Cell Distribution Width 13.6 % (11.0-16.0); White Blood Count 8.5 X10*3/uL (4.8-10.8)
[2023-12-11 16:17] LABS: Uric Acid 4.3 mg/dL (3.4-7.0)
[2023-12-11 16:18] LABS: Alanine Aminotransferase 23 U/L (0-40); Albumin Level 3.5 g/dL (3.5-5.0); Alkaline Phosphatase 141 U/L (39-117); Anion Gap 13 (12-20); Aspartate Amino Transferase 20 U/L (5-37); Bilirubin Total 0.4 mg/dL (0.0-1.0); Blood Urea Nitrogen 9 mg/dL (9-16); C Reactive Protein 1.22 mg/dL (< or = 0.50); Calcium 8.8 mg/dL (8.4-10.2); Carbon Dioxide 24 mmol/L (22-29); Chloride 105 mmol/L (96-108); Estimated Glomerular Filt Rate > 60; Glucose Random 174 mg/dL (60-115); Potassium 3.9 mmol/L (3.3-5.1); Sodium 138 mmol/L (135-145); Total Protein 8.2 g/dL (6.5-8.0)
[2023-12-11 16:19] LABS: Rheumatoid Factor < 13.0 IU/mL (<15.0)
[2023-12-11 16:33] LABS: Erythrocyte Sedimentation Rate 44 MM/HR (0-15)
[2023-12-13 08:18] LABS: Anti Nuclear Antibody Screen NEGATIVE (NEGATIVE)
[2023-12-14 14:33] LABS: Cyclic Citrullinated Peptide <16 UNITS
[2023-12-15 10:48] LABS: IgA 512 mg/dL (70-320); IgG 2495 mg/dL (600-1540); IgM 50 mg/dL (50-300)
[2023-12-15 17:19] LABS: Complement C3 123 mg/dL (82-185)
[2023-12-15 17:59] LABS: Prot Elec - Albumin 3.4 g/dL (3.8-4.8); Prot Elec - Alpha1 0.3 g/dL (0.2-0.3); Prot Elec - Alpha2 0.7 g/dL (0.5-0.9); Prot Elec - Beta 1 0.4 g/dL (0.4-0.6); Prot Elec - Beta 2 0.5 g/dL (0.2-0.5); Prot Elec - Gamma 2.2 g/dL (0.8-1.7); Prot Elec - Total Protein 7.5 g/dL (6.1-8.1)
[2023-12-17 08:04] LABS: Anti DNA DS Antibody 1 IU/mL; Antibody to SS-A Antigen <1.0 NEG AI (<1.0 NEG); Antibody to SS-B Antigen <1.0 NEG AI (<1.0 NEG); SM/Ribonucleoprotein Ab <1.0 NEG AI (<1.0 NEG); Smith Protein <1.0 NEG AI (<1.0 NEG)
== END 2023-12-11 13:27 | disposition home or self-care (01) ==
LOC: HO.LAB 13:26
PROVIDERS: PCP Nurse Practitioner Primary Care; Visit Provider Nurse Practitioner Family
DX: M25.531 Pain in right wrist (principal); M25.532 Pain in left wrist; M79.89 Other specified soft tissue disorders; E11.69 Type 2 diabetes mellitus with other specified complication; E78.5 Hyperlipidemia, unspecified
CPT/HCPCS: 36415; 80053; 82784; 84165; 84550; 85025; 85652; 86038; 86140; 86160; 86200; 86225; 86235; 86334; 86431; 99212

== ENCOUNTER 2023-12-11 13:26 | Outpatient (AMB) | payer MEDICAID, SELFPAY ==
--- NOTE | 2023-12-11 13:27 | A.OFFVIS_ITS ---
Vital Signs 12/11/23 13:28 Height 5 ft 9 in Weight 263 lb 10.766 oz BMI 38.9 BP 98/88 Blood Pressure Location Rt brachial Position Sitting Pulse 86 Pulse Source Pulse Oximeter Pulse Oximetry (%) 98 Oxygen Delivery Method Room Air Intake Visit Reasons: left wrist pain/UNABLE TO CONFIRM Intake Note: New patient, externally referred, presents to office today for joint pain. Per incoming records, patient has severe arthritis on left hand/wrist . XR's scanned in. 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 He describes pain and swelling for the last 3 years to his hand and wrist and has no treatment per patient. for his hands He has a history of liver cancer treated with chemo. He takes Oxycodone for pain. He has seen Orthopedic in the past, and was given a knee brace for his knee. He has also seen pain management and has received non-corticosteroid injections to the SI joint. Per pain management: 02/28/2021 Pain Management: Back/Spine/Pelvis Other: No tenderness on palpation in paraspinal spinal region in lumbar spine. Loading test is negative Range of motion in lumbar spine is limited. Tad test is Positive bilaterally. pelvic compression test is positive bilaterally. Palpation of bilateral sacroiliac joints projection to the skin in his back is very tender. Kelly finger test is positive bilaterally He also is a patient of [facility] and he is under observation of Dr. Connell oncologist at [facility]. 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 He reports that his liver metastases are still very small and well controlled. However nevertheless he is still a cancer patient with liver Mets. 06/2023 Pulmonary Visit: The patient is a 62-year-old gentleman with ongoing respiratory issues. He complains of significant shortness of breath with minimal activity. Moderate in severity. He was admitted to [facility] for his worsening symptoms. During that evaluation he did undergo a CT scan of the chest ruling out pulmonary emboli or active pulmonary disease. Of note he did have some fatty infiltration of the liver with multiple lesions consistent with this history of hepatocellular carcinoma. The patient did not qualify for oxygen was discharged home. In the meantime the patient did have a sleep study at [facility] for ongoing symptoms of sleep apnea which include daytime drowsiness and elevated [place] score of 12/24. He was noted to have significant sleep apnea. And the recommendation is for him to start CPAP therapy as soon as possible. In the office we also performed a 6 minutes walk test due to his shortness of breath. Again, he desaturated down to the low 90s but does not qualify for oxygen supplementation. He started having difficulties tolerating CPAP. He states that he was waking up for short of breath with it. He wasn't sure if he was getting too little pressure. We did download the machine in appears that his average pressure 9.8. Therefore, changes machine to CPAP set up with a pressure of 10 cm and a ramp of 8 cm. He will try that and bring the machine in few weeks to see if we need to further adjusted. [facility] Medical History (Updated 01/10/24 @ 21:46 by NIRALI Michaels) Metastatic colon cancer to liver Seronegative inflammatory arthritis Pain of both wrist joints Bilateral hand swelling Arthritis Chest pain Asthma Sacroiliitis Chronic pain syndrome Bilateral primary osteoarthritis of knee Liver cancer Dyspnea Chest pain Abnormal chest x-ray DIANNA on CPAP Abnormal chest x-ray with multiple lung nodules Lung nodule seen on imaging study Foreign body (FB) in soft tissue Liver cancer Morbid obesity Surgical History History of incisional hernia repair (10/05/18) History of lung surgery Family History (Updated 12/11/23 @ 13:38 by JACKIE Wheeler) Brother Arthritis Social History Alcohol intake: never Patient Tobacco Use Status: Never used Tobacco Review of Systems Const All systems reviewed & are unremarkable except as noted in HPI and below Physical Exam Vital Signs: Last Vital Signs Pulse 86 12/11/23 13:28 BP 98/88 12/11/23 13:28 Pulse Ox 98 12/11/23 13:28 Oxygen Delivery Method Room Air 05/10/24 13:28 BMI result Body Mass Index 38.9 APPEARANCE: Patient in no acute distress EYES no redness, normal EARS:? External ear normal. NOSE/SINUS:? Airflow through both nares, no nasal discharge, no bleeding THROAT:? Oral mucosa moist, no ulcerations NECK:? No thyromegaly or masses, no adenopathy, trachea midline. HEART:? Regular rhythm, S1-S2 heard, no murmurs, rubs or gallops. LUNG:? Clear to percussion and auscultation, decreased in the bases EXTREMITIES:? No edema, no calf tenderness, normal peripheral pulses. NEURO:? Oriented and alert x3.? No focal weakness.? Reflexes symmetric.? walks with cane SKIN:? There are no skin lesions evident. No objective signs of Raynaud's phenomenon. JOINT EXAM: Cervical Spine:.? Full range of motion without pain; no tenderness. Thoracic Spine:.? No scoliosis.? No tenderness on palpation. Lumbar Spine:.? Alignment normal.? decrease range of motion with tenderness on palpation Chest Wall:.? No tenderness, swelling, increased warmth or erythema. Hands:.? decreased range of motion with tenderness, swelling, increased warmth and erythema. 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 Wrists:.? decreased range of motion with tenderness, swelling, increased warmth or erythema. Elbows:. Normal pain-free range of motion without tenderness, swelling, increased warmth or erythema. Shoulders:.?? Full range of motion without pain. No tenderness, weakness, swelling, increased warmth or erythema. Hips:.? Full range of motion with pain to coccyx Hip bursa:.? No tenderness. Knees:.?? decrease range of motion with mild tenderness around joint lline but no, swelling, increased warmth or erythema.? There is no effusion or crepitation Ankles:.? Normal pain-free range of motion without tenderness, swelling, increased warmth or erythema. Feet:.? Normal pain-free range of motion without tenderness, swelling, increased warmth or erythema. Results Reviewed Results Reviewed: [address] [address] XRay Report Signed Patient: Zuhair Hartman MR#: [id number] : 1960 Acct:[id number] Age/Sex: 63 / M ADM Date: 08/18/23 Loc: HO.[facility]HCX Attending Dr: Jayme Schaefer NP Ordering Physician: JAYME SCHAEFER NP Date of Service: 08/18/23 Procedure(s): XR hand LT min 3V Accession Number(s): [id number] cc: JAYME SCHAEFER NP~ EXAMINATION: XR HAND, LEFT XR WRIST, LEFT CLINICAL INFORMATION: Fall. Left wrist and hand pain. COMPARISON: Plain film of the left hand dated November 02, 2018. TECHNIQUE: PA, lateral, and oblique views of the left hand. PA, lateral, and oblique views of the left wrist. XR/XR hand LT min 3V FINDINGS/IMPRESSION: The fingers overlap on another on lateral view, limiting the study. Examination demonstrates severe osteoarthritis involving the first carpal-metacarpal joint, with associated subluxation, similar compared with November 02, 2018. There may be mild degenerative changes of the STT joint, worse. Severe degenerative changes involve the second through fifth PIP and DIP joints, worse. Suspect negative ulnar variance. No acute fracture or dislocation identified. Small vessel arterial calcification suggests diabetic and/or renal calcific atherosclerosis. Laboratory Tests 12/11/23 15:09 WBC 8.5 RBC 4.41 L Hgb 12.9 L Hct 39.3 L ESR 44 H Creatinine 0.86 Uric Acid 4.3 AST 20 ALT 23 C-Reactive Protein 1.22 H Total Protein 8.2 H Assessment & Plan Assessment & Plan (1) Pain of both wrist joints: Code(s): M25.531 - Pain in right wrist; M25.532 - Pain in left wrist Category: Medical (2) Bilateral hand swelling: Code(s): M79.89 - Other specified soft tissue disorders Category: Medical (3) Seronegative inflammatory arthritis: Code(s): M13.80 - Other specified arthritis, unspecified site Category: Medical (4) Metastatic colon cancer to liver: Code(s): C18.9 - Malignant neoplasm of colon, unspecified; C78.7 - Secondary malignant neoplasm of liver and intrahepatic bile duct Category: Medical Plan #Seronegative Inflammatory Arthritis: Mr. Maldonado has swollen, warmth erythematous fingers and wrists. It is clear he has an inflammatory arthritis with a tenosynovitis presentation. He has also been assessed as having sacroilliitis in the past, and does have tenderness to the SI joint on PE and therefore clinically presenting as seronegative inflammatory arthritis at this time. I will obtain labs for further evaluation and prescribe him a course of prednisone to help give relief to his hands. Given his history of liver (mets) and colon cancer, and prior treatment course of chemo, we will be judicious about starting any immunosuppressive therapy. He has elevated ESR/CRP, IgG and IgA. Low dose prednisone may be the choice for halfway treatment given he is under surveillance for mets to the liver. A discussion with his cancer team would be needed for any consideration to start immunomodulator therapy. #T2DM: Discussed with patient possible side effects of prednisone on BS levels. Patient will monitor levels. #Hand OA: Review of images from 08/2023 and 2020 shows severe OA the Left CMC joint with subluxation and to Left hand IP joints and wrist. I spent 40 minutes reviewing history, evaluating patient and documenting f/u 4 months Orders: Orders Comprehensive Met. Panel 12/11/23 - Other specified soft tissue disorders, M25.531 - Pain in right wrist, M25.532 - Pain in left wrist Complement C4 12/11/23 - Other specified soft tissue disorders, M25.531 - Pain in right wrist, M25.532 - Pain in left wrist Complement C3 12/11/23 - Other specified soft tissue disorders, M25.531 - Pain in right wrist, M25.532 - Pain in left wrist Anti Extractable Nuclear Ag 12/11/23 - Other specified soft tissue disorders, M25.531 - Pain in right wrist, M25.532 - Pain in left wrist Anti DNA DS Antibody 12/11/23 - Other specified soft tissue disorders, M25.531 - Pain in right wrist, M25.532 - Pain in left wrist Erythrocyte Sedimentation Rate 12/11/23 - Other specified soft tissue disorders, M25.531 - Pain in right wrist, M25.532 - Pain in left wrist Uric Acid 12/11/23 - Other specified soft tissue disorders, M25.531 - Pain in right wrist, M25.532 - Pain in left wrist Cyclic Citrullinated Peptide 12/11/23 - Other specified soft tissue disorders, M25.531 - Pain in right wrist, M25.532 - Pain in left wrist Rheumatoid Factor 12/11/23 - Other specified soft tissue disorders, M25.531 - Pain in right wrist, M25.532 - Pain in left wrist Complete Blood Count Auto Diff 12/11/23 - Other specified soft tissue disorders, M25.531 - Pain in right wrist, M25.532 - Pain in left wrist VENKATESH Reflex Titer and Pattern 12/11/23 - Other specified soft tissue disorders, M25.531 - Pain in right wrist, M25.532 - Pain in left wrist Immunofixation Pnl, Serum 12/11/23 - Other specified soft tissue disorders, M25.531 - Pain in right wrist, M25.532 - Pain in left wrist Immunoglobulins,IgG IgA IgM 12/11/23 - Other specified soft tissue disorders, M25.531 - Pain in right wrist, M25.532 - Pain in left wrist Sjogren's Antibodies 12/11/23 - Other specified soft tissue disorders, M25.531 - Pain in right wrist, M25.532 - Pain in left wrist Protein Electrophoresis, Serum 12/11/23 - Other specified soft tissue disorders, M25.531 - Pain in right wrist, M25.532 - Pain in left wrist C Reactive Protein 12/11/23 - Other specified soft tissue disorders, M25.531 - Pain in right wrist, M25.532 - Pain in left wrist Coding Level of Care Code New Pt Level 4 (51570) Complex EM visit Add On G2211 Diagnoses Pain of both wrist joints M25.531; M25.532 Bilateral hand swelling . Seronegative inflammatory arthritis M13.80 Metastatic colon cancer to liver C18.9; C78.7
[2023-12-11 13:28] VITALS: BP 98/88; PULSE 86; O2SAT 98; BMI 38.9
== END 2023-12-11 14:16 | disposition home or self-care (01) ==
LOC: HO.RHE 13:26
PROVIDERS: PCP Nurse Practitioner Primary Care; Visit Provider Nurse Practitioner Family
DX: M25.531 Pain in right wrist (principal); M25.532 Pain in left wrist; M79.89 Other specified soft tissue disorders; M13.80 Other specified arthritis, unspecified site; C18.9 Malignant neoplasm of colon, unspecified; C78.7 Secondary malignant neoplasm of liver and intrahepatic bile duct
CPT/HCPCS: 99204

== ENCOUNTER 2023-12-29 09:20 | Outpatient (AMB) | payer MEDICAID, SELFPAY ==
[2023-12-29 09:35] VITALS: PULSE 83; O2SAT 94; BMI 32.5
--- NOTE | 2023-12-29 09:35 | A.OFFVIS_ITS ---
Vital Signs 12/29/23 09:35 Height 5 ft 9 in Weight 220 lb BMI 32.5 Pulse 83 Pulse Source Pulse Oximeter Pulse Oximetry (%) 94 Oxygen Delivery Method Room Air Intake Visit Reasons: Shortness of breath Parking Assistant Required: No Allergies No Known Allergies Allergy (Verified 12/29/23 09:36) HPI Comments Details: The patient is a 63-year-old gentleman with ongoing respiratory issues. He complains of significant shortness of breath with minimal activity. Moderate in severity. He was admitted to [facility] for his worsening symptoms. During that evaluation he did undergo a CT scan of the chest ruling out pulmonary emboli or active pulmonary disease. Of note he did have some fatty infiltration of the liver with multiple lesions consistent with this history of hepatocellular carcinoma. The patient did not qualify for oxygen was discharged home. In the meantime the patient did have a sleep study at [facility] for ongoing symptoms of sleep apnea which include daytime drowsiness and elevated [place] score of 12/24. He was noted to have significant sleep apnea. And the recommendation is for him to start CPAP therapy as soon as possible. In the office we also performed a 6 minutes walk test due to his shortness of breath. Again, he desaturated down to the low 90s but does not qualify for oxygen supplementation. He started having difficulties tolerating CPAP. He states that he was waking up for short of breath with it. He wasn't sure if he was getting too little pressure. We did download the machine in appears that his average pressure 9.8. Therefore, changes machine to CPAP set up with a pressure of 10 cm and a ramp of 8 cm. He will try that and bring the machine in few weeks to see if we need to further adjusted. 11/11/2022 the patient is here for a pulmonary follow-up visit. The patient has been struggling with multiple things. Having significant shortness of breath even with minimal activity. Also complains palpitations. He has been struggling with his CPAP. Seems like sometimes he wakes up very short of breath while using the CPAP almost like the machine is not able to getting pressures that adequate to treat his of obstructive apnea and waking up with an apneic episodes. I did download the machine. It appears that his machine is set up with a minimum pressure of 12 and a maximum pressure of 18. However, the mac son staying at a pressure of 12. Does not appear to be regulating. This is an old machine greater than 5 years old. It may be that is no longer working effectively. Will increase the pressure at this time to 14-18. However, based on the fact does not appear to be working appropriately and also request a new replacement APAP for him. I know that he has been very adherent to the therapy in the fact that it is not working and increasing the pressures that he needs it is a problem. The patient is also struggling with his weight. He has to lose weight in order to undergo a hernia repair. He has already lost around 20 lb. He continues with respiratory therapy. In the office visit we did go for brief walking oximetry. He maintained a good pulse ox of 95% although he was tachycardic up to 116 with minimal activity. He appears to be volume overloaded will give him another few days of Lasix to try to improve his volume status. Patient also has chest congestion go ahead and treat his and chronic bronchitis and will also optimize his respiratory therapy. I am hopeful we can improve his breathing in order for him to stay active continues to lose weight. 06/24/2023 the patient is here for a pulmonary follow-up visit. The patient has been doing well from a respiratory standpoint. Patient has been using his inhalers as prescribed. He has not required her short-acting beta agonists and has not required any prednisone or antibiotics. He has also been using CPAP regularly. He uses it every night more than 4 hours and also uses it during the daytime as needed. He finds it very helpful. He has not been able to get any supplies. We did request a replacement machine during the last visit but he did not get 1. Will go ahead and continue to work with his older machine that is still working partially. Will go ahead and request additional supplies however to make sure that he continues to be functional. The patient will be following up with his surgeon regarding his hepatocellular carcinoma and also considering bariatric surgery. The patient is also following up closely with orthopedic surgery regarding his arthritis of the knees. Clinically from a resp iratory status the patient is doing well may be able to proceed with surgery. 12/29/2023 the patient is here for a pulmonary follow-up visit. Overall he is doing better from a respiratory status. He continues uses respiratory medications with good effect. Still having shortness of breath with activity. In addition to that he has been using the CPAP. The CPAP therapy has been affecting beneficial. Although seems be shutting off on him at times and he is concerned because sometimes he wakes up short of breath with the machine shut off. I did try to download the data. He needs to use it more than what he is using right now. He understands use has use it at least 4 hours a night. He is going to work on that. In the meantime he needs to get supplies. I will request supplies from [employer]. The patient has had this machine since 06/22/2019. He understands that if he were to get a new 1 able to have to be after 5 years. Therefore, will follow-up in 6 months and at that point the machine still not working well we can request a replacement machine. [facility] Medical History (Updated 12/11/23 @ 14:02 by CHRIS Michaels-) Pain of both wrist joints Bilateral hand swelling Arthritis Chest pain Asthma Sacroiliitis Chronic pain syndrome Bilateral primary osteoarthritis of knee Liver cancer Dyspnea Chest pain Abnormal chest x-ray DIANNA on CPAP Abnormal chest x-ray with multiple lung nodules Lung nodule seen on imaging study Foreign body (FB) in soft tissue Liver cancer Morbid obesity Surgical History (Reviewed 05/27/23 @ 10:48 by Yanet White [facility]) History of incisional hernia repair (10/05/18) History of lung surgery Family History (Updated 12/11/23 @ 13:38 by Kwadwo Carrero [facility]) Brother Arthritis Social History (Reviewed 05/27/23 @ 10:48 by Yanet White [facility]) Alcohol intake: never Patient Tobacco Use Status: Never used Tobacco Review of Systems Const Denies daytime sleepiness, Denies excessive sweating, Denies fatigue, Denies snoring, Denies stops breathing during sleep and Reports weight loss Eyes Denies change in vision ENT Reports Normal hearing present Card Reports chest pain, Denies chest pain with activity, Denies diaphoresis, Denies syncope, Denies rapid heart rate, Denies pedal edema, Reports dyspnea and Reports dyspnea on exertion Resp Denies chest congestion, Reports cough, Denies hemoptysis, Denies pain on inspiration, Denies pain with cough, Reports dyspnea, Reports dyspnea on exertion, Denies snoring and Reports wheezing GI Denies abdominal pain, Denies belching, Denies melena and Denies bloating Denies urinary incontinence Musc Reports as per HPI Neuro Reports Normal hearing present, Denies confusion, Denies syncope, Denies memory loss, Denies seizure-like activity and Denies Sensory deficit (Neuro) Psych Denies confusion, Denies irritability, Denies anhedonia, Denies memory loss, Denies visual hallucinations, Denies hallucinations, Denies tactile hallucinations, Denies homicidal ideation and Denies suicidal ideation Endo Denies excessive sweating and Denies fatigue Aller/Immun Reports wheezing Physical Exam Vital Signs: Last Vital Signs Pulse 83 12/29/23 09:35 Pulse Ox 94 12/29/23 09:35 Oxygen Delivery Method Room Air 12/29/23 09:35 BMI result Body Mass Index 32.5 Const General: No confusion Orientation/consciousness: No confusion HEENT General nose exam: Abnormal external nose present and Nasal discharge present Chest Chest palpation & inspection: normal inspection of the chest Resp Auscultation: no rales, no rhonchi, no wheezes and diminished lung sounds Cardio Rate: regular rate Rhythm: regular rhythm Heart sounds: S1 normal heart sound present and S2 normal heart sound present GI Palpation (GI): Soft to palpation and nontender Auscultation: normal bowel sounds Neuro General: No confusion Cranial nerves: Yes Normal hearing present Sensory Exam: No Sensory deficit (Neuro) Assessment & Plan Assessment & Plan (1) DIANNA on CPAP: Code(s): G47.33 - Obstructive sleep apnea (adult) (pediatric); Z99.89 - Dependence on other enabling machines and devices Category: Medical (2) Asthma: Code(s): J45.909 - Unspecified asthma, uncomplicated Category: Medical Qualifiers: Asthma complication type: uncomplicated Asthma persistence: persistent Asthma severity: moderate Qualified Code(s): J45.40 - Moderate persistent asthma, uncomplicated (3) Dyspnea: Code(s): R06.00 - Dyspnea, unspecified Category: Medical Qualifiers: Dyspnea type: dyspnea on exertion Qualified Code(s): R06.09 - Other forms of dyspnea (4) Liver cancer: Code(s): C22.9 - Malignant neoplasm of liver, not specified as primary or secondary Category: Medical Qualifiers: Liver malignancy type: hepatocellular carcinoma Qualified Code(s): C22.0 - Liver cell carcinoma Plan Low sodium diet continue Trelegy GEMMA as needed continue APAP 14-18, needs supplies gabapentin at night to improve sleep anf neuro pathic pain F/U 6 months Coding Level of Care Code Est Pt Level 4 (96647) Diagnoses DIANNA on CPAP G47.33; Z99.89 Moderate persistent asthma without complication J45.40 Asthma complication type: uncomplicated Asthma persistence: persistent Asthma severity: moderate Dyspnea on exertion R06.09 Dyspnea type: dyspnea on exertion Hepatocellular carcinoma C22.0 Liver malignancy type: hepatocellular carcinoma Time Spent (min) 16
== END 2023-12-29 09:50 | disposition home or self-care (01) ==
PROVIDERS: PCP Nurse Practitioner Primary Care; Visit Provider Hospitalist
DX: G47.33 Obstructive sleep apnea (adult) (pediatric) (principal); Z99.89 Dependence on other enabling machines and devices; J45.40 Moderate persistent asthma, uncomplicated; R06.09 Other forms of dyspnea; C22.0 Liver cell carcinoma
CPT/HCPCS: 99214

== ENCOUNTER → 2023-12-29 09:20 | Outpatient (BNVA) | payer MEDICAID, SELFPAY | PROVIDERS: PCP Nurse Practitioner Primary Care; Visit Provider Hospitalist | DX: R06.09 Other forms of dyspnea (principal); J45.40 Moderate persistent asthma, uncomplicated; G47.33 Obstructive sleep apnea (adult) (pediatric); C22.0 Liver cell carcinoma; Z99.89 Dependence on other enabling machines and devices | CPT/HCPCS: 99212 ==

== ENCOUNTER 2024-01-13 13:49 | Outpatient (AMB) | payer MEDICAID, SELFPAY ==
--- NOTE | 2024-01-13 14:26 | A.OFFVIS_ITS ---
Vital Signs 01/13/24 14:36 Height 5 ft 9 in Weight 259 lb 11.272 oz BMI 38.3 BP 142/60 H Blood Pressure Location Rt brachial Position Sitting Pulse 80 Pulse Source Pulse Oximeter Pulse Oximetry (%) 96 Oxygen Delivery Method Room Air Intake Visit Reasons: Hand and wrist pain and swelling Intake Note: Patient last seen 12/11/23 by Maite, presents today for follow up and test results. Reports finger pain, bl hands States prednisone helped with pain but made him sleepy Membership Sales Manager Required: Yes Membership Sales Manager Language: Mediation Commissioner Name: Nicolette Chung [id number] Accompanied by: Self / Same As Patient Allergies No Known Allergies Allergy (Verified 01/13/24 14:37) HPI Comments Details: The patient is a 62-year-old male here for follow-up of initial evaluation of multiple joint pain. At last visit he was put on prednisone and now he describes that the pain and swelling to his hand and wrist have improved and gone down. Some of the finger joints are distillery miller but not as it was before per patient. He continues with treatment for liver cancer and was recently told that his liver looks very good. He takes Oxycodone for pain. He has seen Orthopedic in the past, and was given knee brace for his knees. He has also seen pain management and has received non-corticosteroid injections to the SI joint. Per pain management. Initial visit 12/11/2023 The patient is a 62-year-old male here for evaluation of multiple joint pain. He describes pain and swelling for the last 3 years to his hand and wrist and has no treatment per patient. for his hands He has a history of liver cancer treated with chemo. He takes Oxycodone for pain. He has seen Orthopedic in the past, and was given a knee brace for his knee. He has also seen pain management and has received non-corticosteroid injections to the SI joint. Per pain management: 02/28/2021 Pain Management: Back/Spine/Pelvis Other: No tenderness on palpation in paraspinal spinal region in lumbar spine. Loading test is negative Range of motion in lumbar spine is limited. Tad test is Positive bilaterally. pelvic compression test is positive bilaterally. Palpation of bilateral sacroiliac joints projection to the skin in his back is very tender. Kelly finger test is positive bilaterally He also is a patient of [facility] and he is under observation of Dr. Becki rangelologist at [facility]. 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 He reports that his liver metastases are still very small and well controlled. However nev ertheless he is still a cancer patient with liver Mets. 06/2023 Pulmonary Visit: The patient is a 62-year-old gentleman with ongoing respiratory issues. He complains of significant shortness of breath with minimal activity. Moderate in severity. He was admitted to [facility] for his worsening symptoms. During that evaluation he did undergo a CT scan of the chest ruling out pulmonary emboli or active pulmonary disease. Of note he did have some fatty infiltration of the liver with multiple lesions consistent with this history of hepatocellular carcinoma. The patient did not qualify for oxygen was discharged home. In the meantime the patient did have a sleep study at [facility] for ongoing symptoms of sleep apnea which include daytime drowsiness and elevated [place] score of 12/24. He was noted to have significant sleep apnea. And the recommendation is for him to start CPAP therapy as soon as possible. In the office we also performed a 6 minutes walk test due to his shortness of breath. Again, he desaturated down to the low 90s but does not qualify for oxygen supplementation. He started having difficulties tolerating CPAP. He states that he was waking up for short of breath with it. He wasn't sure if he was getting too little pressure. We did download the machine in appears that his average pressure 9.8. Therefore, changes machine to CPAP set up with a pressure of 10 cm and a ramp of 8 cm. He will try that and bring the machine in few weeks to see if we need to further adjusted. [facility] Medical History (Updated 01/16/24 @ 17:06 by Carmencita Arora [facility]) Osteoarthritis of both hands Metastatic colon cancer to liver Seronegative inflammatory arthritis Pain of both wrist joints Bilateral hand swelling Arthritis Chest pain Asthma Sacroiliitis Chronic pain syndrome Bilateral primary osteoarthritis of knee Liver cancer Dyspnea Chest pain Abnormal chest x-ray DIANNA on CPAP Abnormal chest x-ray with multiple lung nodules Lung nodule seen on imaging study Foreign body (FB) in soft tissue Liver cancer Morbid obesity Surgical History History of incisional hernia repair (03/05/19) History of lung surgery Family History Brother Arthritis Social History Alcohol intake: never Patient Tobacco Use Status: Never used Tobacco Review of Systems Const All systems reviewed & are unremarkable except as noted in HPI and below Physical Exam Vital Signs: Last Vital Signs Pulse 80 01/13/24 14:36 BP 142/60 H 01/13/24 14:36 Pulse Ox 96 01/13/24 14:36 Oxygen Delivery Method Room Air 01/13/24 14:36 BMI result Body Mass Index 38.3 APPEARANCE: Patient in no acute distress EYES no redness, normal HEART:? Regular rhythm, S1-S2 heard, no murmurs, rubs or gallops. LUNG:? Clear to percussion and auscultation, decreased in the bases EXTREMITIES:? No edema, no calf tenderness, normal peripheral pulses. NEURO:? Oriented and alert x3.? No focal weakness.? Reflexes symmetric.? walks with cane SKIN:? There are no skin lesions evident. No objective signs of Raynaud's phenomenon. JOINT EXAM: Cervical Spine:.? Full range of motion without pain; no tenderness. Thoracic Spine:.? No scoliosis.? No tenderness on palpation. Lumbar Spine:.? Alignment normal.? decrease range of motion with tenderness on palpation Chest Wall:.? No tenderness, swelling, increased warmth or erythema. Hands:.? decreased range of motion with but marked decrease in tenderness, swelling, warmth and erythema. 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 However, bilateral middle finger still with tender and swollen PIPs, right 4th PIP swelling Wrists:.? decreased range of motion with mild tenderness to left but no more, swelling, increased warmth or erythema to either wrist. Elbows:. Normal pain-free range of motion without tenderness, swelling, increased warmth or erythema. Shoulders:.?? Full range of motion without pain. No tenderness, weakness, swelling, increased warmth or erythema. Hips:.? Full range of motion with pain to coccyx Hip bursa:.? No tenderness. Knees:.?? decrease range of motion with mild tenderness around joint lline but no, swelling, increased warmth or erythema.? There is no effusion or crepitation Ankles:.? Normal pain-free range of motion without tenderness, swelling, increased warmth or erythema. Feet:.? Normal pain-free range of motion without tenderness, swelling, increased warmth or erythema. Results Reviewed Results Reviewed: [facility] [address] [place] [address] XRay Report Signed Patient: Zuhair Hartman MR#: [id number] : 1960 Acct:[id number] Age/Sex: 63 / M ADM Date: 08/18/23 Loc: HO.[facility]HCX Attending Dr: Jayme Schaefer NP Ordering Physician: JAYME SCHAEFER NP Date of Service: 08/18/23 Procedure(s): XR hand LT min 3V Accession Number(s): [id number] cc: JAYME SCHAEFER NP~ EXAMINATION: XR HAND, LEFT XR WRIST, LEFT CLINICAL INFORMATION: Fall. Left wrist and hand pain. COMPARISON: Plain film of the left hand dated November 02, 2018. TECHNIQUE: PA, lateral, and oblique views of the left hand. PA, lateral, and oblique views of the left wrist. XR/XR hand LT min 3V FINDINGS/IMPRESSION: The fingers overlap on another on lateral view, limiting the study. Examination demonstrates severe osteoarthritis involving the first carpal-metacarpal joint, with associated subluxation, similar compared with November 02, 2018. There may be mild degenerative changes of the STT joint, worse. Severe degenerative changes involve the second through fifth PIP and DIP joints, worse. Suspect negative ulnar variance. No acute fracture or dislocation identified. Small vessel arterial calcification suggests diabetic and/or renal calcific atherosclerosis. Laboratory Tests 12/11/23 15:09 WBC 8.5 RBC 4.41 L Hgb 12.9 L Hct 39.3 L ESR 44 H Creatinine 0.86 Uric Acid 4.3 AST 20 ALT 23 C-Reactive Protein 1.22 H Total Protein 8.2 H Assessment & Plan Assessment & Plan (1) Pain of both wrist joints: Code(s): M25.531 - Pain in right wrist; M25.532 - Pain in left wrist Category: Medical (2) Seronegative inflammatory arthritis: Code(s): M13.80 - Other specified arthritis, unspecified site Category: Medical (3) Metastatic colon cancer to liver: Code(s): C18.9 - Malignant neoplasm of colon, unspecified; C78.7 - Secondary malignant neoplasm of liver and intrahepatic bile duct Category: Medical (4) Osteoarthritis of both hands: Code(s): M19.041 - Primary osteoarthritis, right hand; M19.042 - Primary osteoarthritis, left hand Category: Medical Qualifiers: Osteoarthritis type: primary Qualified Code(s): M19.041 - Primary osteoarthritis, right hand; M19.042 - Primary osteoarthritis, left hand Plan #Seronegative Inflammatory Arthritis: Mr. Maldonado at 1st visit has swollen, warmth erythematous fingers and wrists. It is clear he has an inflammatory arthritis. His hands were significantly improved on the course of prednisone. His Rheum labs were grossly negative. Given his history of liver (mets) and colon cancer, and prior treatment course of chemo, we will be judicious about starting any immunosuppressive therapy. He has elevated ESR/CRP, IgG and IgA. Low dose prednisone 5-10% per day will be the choice for detention treatment given he is under surveillance for mets to the liver. #T2DM: Discussed with patient possible side effects of prednisone on BS levels. Patient will monitor levels. He has devices for glucose monitoring which helped him to control his blood sugar #Hand OA: Review of images from 08/2023 and 2020 shows severe OA the Left CMC joint with subluxation and to Left hand IP joints and wrist. Will obtain x-ray for the right hand I spent 25 minutes reviewing chart, evaluating patient and documenting f/u 3 months Orders: Orders Erythrocyte Sedimentation Rate 01/13/24 M13.80 - Other specified arthritis, unspecified site, M79.89 - Other specified soft tissue disorders C Reactive Protein 01/13/24 M13.80 - Other specified arthritis, unspecified site, M79.89 - Other specified soft tissue disorders XR hand RT 2V 01/13/24 M13.80 - Other specified arthritis, unspecified site, M79.89 - Other specified soft tissue disorders XR hand LT 2V 01/13/24 M13.80 - Other specified arthritis, unspecified site, M79.89 - Other specified soft tissue disorders Comprehensive Met. Panel 01/13/24 M13.80 - Other specified arthritis, unspecified site, M79.89 - Other specified soft tissue disorders Complete Blood Count Auto Diff 06/12/24 M13.80 - Other specified arthritis, unspecified site, M79.89 - Other specified soft tissue disorders Medications: Changed From prednisone 3 tablets per day x 7 days 2 tablets per day x 7 days 1 tablet per day x 7 days stop 45 tabs 0RF M25.531 - Pain in right wrist, M25.532 - Pain in left wrist, M79.89 - Other specified soft tissue disorders To prednisone 1 to 2 tablets per day 60 tabs 1RF M25.531 - Pain in right wrist, M25.532 - Pain in left wrist, M79.89 - Other specified soft tissue disorders Coding Level of Care Code Est Pt Level 4 (10368) Complex EM visit Add On G2211 Diagnoses Pain of both wrist joints M25.531; M25.532 Seronegative inflammatory arthritis M13.80 Metastatic colon cancer to liver C18.9; C78.7 Primary osteoarthritis of both hands M19.041; M19.042 Osteoarthritis type: primary
[2024-01-13 14:36] VITALS: BP 142/60; PULSE 80; O2SAT 96; BMI 38.3
== END 2024-01-13 15:02 | disposition home or self-care (01) ==
LOC: HO.RHE 13:49
PROVIDERS: PCP Nurse Practitioner Primary Care; Visit Provider Nurse Practitioner Family
DX: M25.531 Pain in right wrist (principal); M25.532 Pain in left wrist; M13.80 Other specified arthritis, unspecified site; C18.9 Malignant neoplasm of colon, unspecified; C78.7 Secondary malignant neoplasm of liver and intrahepatic bile duct; M19.041 Primary osteoarthritis, right hand; M19.042 Primary osteoarthritis, left hand
CPT/HCPCS: 99214; G2211

== ENCOUNTER → 2024-01-13 13:49 | Outpatient (BNVA) | payer MEDICAID, SELFPAY | PROVIDERS: PCP Nurse Practitioner Primary Care; Visit Provider Nurse Practitioner Family | DX: M25.531 Pain in right wrist (principal); M25.532 Pain in left wrist; M19.041 Primary osteoarthritis, right hand; M19.042 Primary osteoarthritis, left hand; C18.9 Malignant neoplasm of colon, unspecified; C78.7 Secondary malignant neoplasm of liver and intrahepatic bile duct; Z79.891 Long term (current) use of opiate analgesic | CPT/HCPCS: 99212 ==

== ENCOUNTER 2024-01-29 17:59 | Outpatient (REF) | payer MEDICAID, SELFPAY ==
[2024-01-29 18:41] LABS: Amphetamine Screen Urine Not Detected (Not Detect); Barbiturates, Urine Not Detected (Not Detect); Benzodiazepines Screen Urine Not Detected (Not Detect); Buprenorphine Scr Not Detected (Not Detect); Cannabinoid Screen Urine Not Detected (Not Detect); Cocaine Screen Urine POSITIVE (Not Detect); Fentanyl, urine Not Detected (Not Detect); Methadone Screen, Urine Not Detected (Not Detect); Opiate Screen Urine Not Detected (Not Detect); Oxycodone Screen Urine Not Detected (Not Detect); Phencyclidine Screen Urine Not Detected (Not Detect)
== END 2024-01-29 18:00 | disposition home or self-care (01) ==
LOC: HO.HHCLNP 17:59
PROVIDERS: Visit Provider Nurse Practitioner Primary Care
DX: M25.561 Pain in right knee (principal); M25.562 Pain in left knee; G89.29 Other chronic pain
CPT/HCPCS: 80307; 80353

== ENCOUNTER 2024-05-04 14:39 | Outpatient (REF) | payer MEDICAID, SELFPAY ==
[2024-05-10 14:55] LABS: Benzoylecgonine >20000 (H)
== END 2024-05-04 14:40 | disposition home or self-care (01) ==
LOC: HO.CHCLNP 14:39
PROVIDERS: Visit Provider Nurse Practitioner Primary Care
DX: M54.50 Low back pain, unspecified (principal); G89.29 Other chronic pain
CPT/HCPCS: 36415; 80353

== ENCOUNTER 2024-05-06 10:25 | Outpatient (REF) | payer MEDICAID, SELFPAY ==
[2024-05-06 13:01] LABS: MANUAL DIFF FLAG NO
[2024-05-06 13:14] LABS: Basophils Absolute Auto 0.1 X10*3/uL (0.0-0.2); Basophils Percent Auto 0.9 % (0-2); Eosinophils Absolute Auto 0.1 X10*3/uL (0.0-0.4); Eosinophils Percent Auto 1.6 % (0-4); Hematocrit 39.6 % (42.0-52.0); Imm Gran Abs Auto 0.03 X10*3/uL (0.00-0.03); Imm Gran Pct Auto 0.4 % (0.0-0.4); Lymphocytes Absolute Auto 2.2 X10*3/uL (1.2-4.9); Lymphocytes Percent Auto 27.8 % (20-40); Mean Corpuscular HGB Conc 32.8 g/dl (31.0-36.0); Mean Corpuscular Hemoglobin 29.7 pg (27.0-33.0); Mean Corpuscular Volume 90.4 fL (80.0-98.0); Mean Platelet Volume 11.8 fL (9.4-12.4); Monocytes Absolute Auto 0.5 X10*3/uL (0.1-1.2); Monocytes Percent Auto 6.6 % (2-11); Neutrophils Absolute Auto 4.8 x10*3/uL (2.0-8.3); Neutrophils Percent Auto 62.7 % (45-73); Platelet Count 224 X10*3/uL (160-400); Red Blood Count 4.38 X10*6/uL (4.60-5.80); Red Cell Distribution Width 13.3 % (11.0-16.0); White Blood Count 7.7 X10*3/uL (4.8-10.8)
[2024-05-06 13:52] LABS: Erythrocyte Sedimentation Rate 29 MM/HR (0-15)
[2024-05-06 13:54] LABS: Alanine Aminotransferase 22 U/L (0-40); Albumin Level 3.5 g/dL (3.5-5.0); Alkaline Phosphatase 103 U/L (39-117); Anion Gap 10 (12-20); Aspartate Amino Transferase 25 U/L (5-37); Bilirubin Total 0.8 mg/dL (0.0-1.0); Blood Urea Nitrogen 12 mg/dL (9-16); Calcium 8.9 mg/dL (8.4-10.2); Carbon Dioxide 27 mmol/L (22-29); Chloride 104 mmol/L (96-108); Cholesterol 124 mg/dL (<200); Estimated Glomerular Filt Rate > 60; Glucose Random 131 mg/dL (60-115); HDL Cholesterol 38 mg/dL (>40); LDL Cholesterol Calculated 66 mg/dL (<100); Potassium 3.8 mmol/L (3.3-5.1); Sodium 137 mmol/L (135-145); Total Protein 8.1 g/dL (6.5-8.0); Triglycerides 103 mg/dL (<150)
[2024-05-06 14:04] LABS: Prostate Specific Antigen 0.39 ng/mL (<0.05-4.0); Vitamin B12 260 pg/mL (200-900)
[2024-05-06 14:16] LABS: Amphetamine Screen Urine Not Detected (Not Detect); Barbiturates, Urine Not Detected (Not Detect); Benzodiazepines Screen Urine Not Detected (Not Detect); Buprenorphine Scr Not Detected (Not Detect); Cannabinoid Screen Urine Not Detected (Not Detect); Cocaine Screen Urine POSITIVE (Not Detect); Fentanyl, urine Not Detected (Not Detect); Methadone Screen, Urine Not Detected (Not Detect); Opiate Screen Urine Not Detected (Not Detect); Oxycodone Screen Urine Not Detected (Not Detect); Phencyclidine Screen Urine Not Detected (Not Detect)
== END 2024-05-06 10:26 | disposition home or self-care (01) ==
LOC: HO.HHCL 10:25
PROVIDERS: Nurse Practitioner Family; Visit Provider Nurse Practitioner Primary Care
DX: Z00.00 Encounter for general adult medical examination without abnormal findings (principal); E53.8 Deficiency of other specified B group vitamins; E11.69 Type 2 diabetes mellitus with other specified complication; E78.5 Hyperlipidemia, unspecified; M13.80 Other specified arthritis, unspecified site; M79.89 Other specified soft tissue disorders; M25.531 Pain in right wrist; M25.532 Pain in left wrist; M25.562 Pain in left knee; M25.561 Pain in right knee; G89.29 Other chronic pain
CPT/HCPCS: 36415; 80053; 80061; 80307; 82607; 84153; 85025; 85652; 86140

== ENCOUNTER 2024-05-18 14:35 | Outpatient (AMB) | payer MEDICAID, SELFPAY ==
--- NOTE | 2024-05-18 14:49 | MHC.OFFVIS ---
Vital Signs 05/18/24 14:56 Height 5 ft 9 in Weight 259 lb 8 oz BMI 38.3 BP 143/92 H Blood Pressure Location Lt brachial Position Sitting Respiration 16 Pulse 93 Pulse Source Pulse Oximeter Pulse Oximetry (%) 94 Oxygen Delivery Method Room Air Intake Visit Reasons: Chronic Bilateral Low Back Pain Intake Note: Patient comes in for low back pain. Reports pain 9.5/10. 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 Zuhair Ramírez is very pleasant Yi-speaking 60 years old gentleman who presents in my office with complains on lower low back pain. He is well known to this practice. He was last seen in my office on in January of 2021. At that time he received therapeutic bilateral sacroiliac joint injection. He reported today that this injection was working for him for 3 years. He reports that his pain today is 9/10 today. He requests me to repeat the injection. I will schedule him for sacroiliac joint injection bilateral without sedation. His right knee pain is getting worse. His orthopedic surgeon wants to do surgery on him however can not do it with his current chemotherapy. However patient stated that if he will stop his chemotherapy his cancer will start to grow and it will jeopardize his life. In the situation we might consider in the future palliative measures such as genicular nerve blocks for the right knee and eventually radiofrequency ablation of the right knee. Sprint PNS for couple of whether positions in the patient's thigh could be also attempted to alleviate his pain. [facility] and he is under observation of Dr. Connell oncologist at [facility]. 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 He reports that his liver metastases are still very small and well controlled. However nevertheless he has a still a cancer patient with liver Mets. He continues chemotherapy. [facility], [facility] Medical History (Updated 05/18/24 @ 16:04 by Drew Russell MD) Osteoarthritis of both hands Metastatic colon cancer to liver Seronegative inflammatory arthritis Pain of both wrist joints Bilateral hand swelling Arthritis Chest pain Asthma Sacroiliitis Chronic pain syndrome Bilateral primary osteoarthritis of knee Liver cancer Dyspnea Chest pain Abnormal chest x-ray DIANNA on CPAP Abnormal chest x-ray with multiple lung nodules Lung nodule seen on imaging study Foreign body (FB) in soft tissue Liver cancer Morbid obesity Surgical History History of incisional hernia repair (10/05/18) History of lung surgery Family History Brother Arthritis Social History Alcohol intake: never Patient Tobacco Use Status: Never used Tobacco Review of Systems Const All systems reviewed & are unremarkable except as noted in HPI and below ENT Reports Normal hearing present Neuro Reports Normal hearing present, Denies confusion and Denies Sensory deficit (Neuro) Psych Denies confusion Physical Exam Vital Signs: Last Vital Signs Pulse 93 05/18/24 14:56 Resp 16 05/18/24 14:56 BP 143/92 H 05/18/24 14:56 Pulse Ox 94 05/18/24 14:56 Oxygen Delivery Method Room Air 05/18/24 14:56 BMI result Body Mass Index 38.3 Const General: comfortable, no acute distress, well developed, alert and awake; No confusion Orientation/consciousness: No confusion Eyes Pupils: Equal, round and reactive pupils present EOM: EOMs intact bilaterally Chest Chest palpation & inspection: normal inspection of the chest Resp Effort & Inspection: normal respiratory effort, able to speak in complete sentences, normal respiratory pattern, no audible wheezes and no cough Cardio Jugular venous distension: no JVD Back/Spine/Pelvis Other: No tenderness on palpation in paraspinal spinal region in lumbar spine. Loading test is negative Range of motion in lumbar spine is limited. Tad test is Positive bilaterally. pelvic compression test is positive bilaterally. Palpation of bilateral sacroiliac joints projection to the skin in his back is very tender. Kelly finger test is positive bilaterally Neuro General: No confusion Cranial nerves: Yes Equal, round and reactive pupils present and Yes Normal hearing present Sensory Exam: No Sensory deficit (Neuro) Extrem Other: On physical exam he has slightly edematous right knee. He has a bracing device applied to the right knee. Because of the bracing device I was not able to examined range of motion. Psych Speech and movement: Normal speech and movement present Affect: normal affect Attitude: cooperative Thought process: Normal thought process present Thought content: Normal thought content present Insight: Good insight present (Psych) Judgement: Good judgement present (Psych) Assessment & Plan Assessment & Plan (1) Liver cancer: Code(s): C22.9 - Malignant neoplasm of liver, not specified as primary or secondary Category: Medical Qualifiers: Liver malignancy type: hepatocellular carcinoma Qualified Code(s): C22.0 - Liver cell carcinoma (2) Bilateral primary osteoarthritis of knee: Code(s): M17.0 - Bilateral primary osteoarthritis of knee Category: Medical (3) Chronic pain syndrome: Code(s): G89.4 - Chronic pain syndrome Category: Medical (4) Sacroiliitis: Code(s): M46.1 - Sacroiliitis, not elsewhere classified Category: Medical (5) Sacroiliac joint dysfunction of both sides: Code(s): M53.3 - Sacrococcygeal disorders, not elsewhere classified Category: Medical Plan I will schedule this patient for bilateral sacroiliac joint injection. In the past he obtain the clearance for steroid injections. It is okay to combine those with his chemotherapy. As of his right knee possibility exists to treat his right knee with diagnostic genicular nerve block versus diagnostic femoral nerve block. Possibility to treat his knee with RFA of the genicular nerves versus PNS of the femoral nerve will be discussed in the patient after the therapeutic sacroiliac joint injection will be done. He is a cancer patient and currently on chemotherapy for neuroendocrine cancer. Coding Level of Care Code Est Pt Level 3 (93698) Diagnoses Hepatocellular carcinoma C22.0 Liver malignancy type: hepatocellular carcinoma Bilateral primary osteoarthritis of knee M17.0 Chronic pain syndrome G89.4 Sacroiliitis M46.1 Sacroiliac joint dysfunction of both sides M53.3
[2024-05-18 14:56] VITALS: BP 143/92; PULSE 93; RESP 16; O2SAT 94; BMI 38.3
== END 2024-05-18 15:44 | disposition home or self-care (01) ==
PROVIDERS: PCP Nurse Practitioner Primary Care; Visit Provider Anesthesiology
DX: C22.0 Liver cell carcinoma (principal); M17.0 Bilateral primary osteoarthritis of knee; G89.4 Chronic pain syndrome; M46.1 Sacroiliitis, not elsewhere classified; M53.3 Sacrococcygeal disorders, not elsewhere classified
CPT/HCPCS: 99213

== ENCOUNTER → 2024-05-18 14:35 | Outpatient (BNVA) | payer MEDICAID, SELFPAY | PROVIDERS: PCP Nurse Practitioner Primary Care; Visit Provider Anesthesiology | DX: M17.0 Bilateral primary osteoarthritis of knee (principal); M46.1 Sacroiliitis, not elsewhere classified; M53.3 Sacrococcygeal disorders, not elsewhere classified; C22.0 Liver cell carcinoma; G89.4 Chronic pain syndrome | CPT/HCPCS: 99212 ==

== ENCOUNTER 2024-05-20 17:28 | Outpatient (REF) | payer MEDICAID, SELFPAY ==
[2024-05-23 10:19] LABS: Benzoylecgonine >20000 (H)
== END 2024-05-20 17:29 | disposition home or self-care (01) ==
LOC: HO.HHCLNP 17:28
PROVIDERS: Visit Provider Nurse Practitioner Primary Care
DX: M54.50 Low back pain, unspecified (principal); G89.29 Other chronic pain
CPT/HCPCS: 36415; 80353

== ENCOUNTER 2024-06-15 09:20 | Outpatient (REF) | payer MEDICAID, SELFPAY | END 2024-06-15 09:21 | disposition home or self-care (01) | LOC: HO.HOSX 09:20 | PROVIDERS: Visit Provider Orthopaedic Surgery | DX: Z13.89 Encounter for screening for other disorder (principal) ==

== ENCOUNTER 2024-08-16 06:14 | Outpatient (REF) | payer MEDICAID, SELFPAY | END 2024-08-16 06:15 | disposition home or self-care (01) | LOC: CF 06:14 | PROVIDERS: Visit Provider Anesthesiology | DX: Z01.811 Encounter for preprocedural respiratory examination (principal); C22.0 Liver cell carcinoma; R06.09 Other forms of dyspnea; J45.40 Moderate persistent asthma, uncomplicated; Z99.89 Dependence on other enabling machines and devices; G47.33 Obstructive sleep apnea (adult) (pediatric) | CPT/HCPCS: 99212 ==

== ENCOUNTER 2024-08-16 09:56 | Outpatient (AMB) | payer MEDICAID, SELFPAY ==
[2024-08-16 09:57] VITALS: BP 164/78; PULSE 90; O2SAT 97; BMI 38.4
--- NOTE | 2024-08-16 09:57 | A.OFFVIS_ITS ---
Vital Signs 08/16/24 09:57 Height 5 ft 9 in Weight 260 lb 2.327 oz BMI 38.4 BP 164/78 H Blood Pressure Location Rt brachial Position Sitting Pulse 90 Pulse Source Pulse Oximeter Pulse Oximetry (%) 97 Oxygen Delivery Method Room Air Intake Visit Reasons: shortness of breath Allergies No Known Allergies Allergy (Verified 08/16/24 10:03) HPI Comments Details: The patient is a 64-year-old gentleman with ongoing respiratory issues. He complains of significant shortness of breath with minimal activity. Moderate in severity. He was admitted to [facility] for his worsening symptoms. During that evaluation he did undergo a CT scan of the chest ruling out pulmonary emboli or active pulmonary disease. Of note he did have some fatty infiltration of the liver with multiple lesions consistent with this history of hepatocellular carcinoma. The patient did not qualify for oxygen was discharged home. In the meantime the patient did have a sleep study at [facility] for ongoing symptoms of sleep apnea which include daytime drowsiness and elevated Zwolle score of 12/24. He was noted to have significant sleep apnea. And the recommendation is for him to start CPAP therapy as soon as possible. In the office we also performed a 6 minutes walk test due to his shortness of breath. Again, he desaturated down to the low 90s but does not qualify for oxygen supplementation. He started having difficulties tolerating CPAP. He states that he was waking up for short of breath with it. He wasn't sure if he was getting too little pressure. We did download the machine in appears that his average pressure 9.8. Therefore, changes machine to CPAP set up with a pressure of 10 cm and a ramp of 8 cm. He will try that and bring the machine in few weeks to see if we need to further adjusted. 11/11/2022 the patient is here for a pulmonary follow-up visit. The patient has been struggling with multiple things. Having significant shortness of breath even with minimal activity. Also complains palpitations. He has been struggling with his CPAP. Seems like sometimes he wakes up very short of breath while using the CPAP almost like the machine is not able to getting pressures that adequate to treat his of obstructive apnea and waking up with an apneic episodes. I did download the machine. It appears that his machine is set up with a minimum pressure of 12 and a maximum pressure of 18. However, the machine staying at a pressure of 12. Does not appear to be regulating. This is an old machine greater than 5 years old. It may be that is no longer working effectively. Will increase the pressure at this time to 14-18. However, based on the fact does not appear to be working appropriately and also request a new replacement APAP for him. I know that he has been very adherent to the therapy in the fact that it is not working and increasing the pressures that he needs it is a problem. The patient is also struggling with his weight. He has to lose weight in order to undergo a hernia repair. He has already lost around 20 lb. He continues with respiratory therapy. In the office visit we did go for brief walking oximetry. He maintained a good pulse ox of 95% although he was tachycardic up to 116 with minimal activity. He appears to be volume overloaded will give him another few days of Lasix to try to improve his volume status. Patient also has chest congestion go ahead and treat his and chronic bronchitis and will also optimize his respiratory therapy. I am hopeful we can improve his breathing in order for him to stay active continues to lose weight. 06/24/2023 the patient is here for a pulmonary follow-up visit. The patient has been doing well from a respiratory standpoint. Patient has been using his inhalers as prescribed. He has not required her short-acting beta agonists and has not required any prednisone or antibiotics. He has also been using CPAP r egularly. He uses it every night more than 4 hours and also uses it during the daytime as needed. He finds it very helpful. He has not been able to get any supplies. We did request a replacement machine during the last visit but he did not get 1. Will go ahead and continue to work with his older machine that is still working partially. Will go ahead and request additional supplies however to make sure that he continues to be functional. The patient will be following up with his surgeon regarding his hepatocellular carcinoma and also considering bariatric surgery. The patient is also following up closely with orthopedic surgery regarding his arthritis of the knees. Clinically from a respiratory status the patient is doing well may be able to proceed with surgery. 12/29/2023 the patient is here for a pulmonary follow-up visit. Overall he is doing better from a respiratory status. He continues uses respiratory medications with good effect. Still having shortness of breath with activity. In addition to that he has been using the CPAP. The CPAP therapy has been affecting beneficial. Although seems be shutting off on him at times and he is concerned because sometimes he wakes up short of breath with the machine shut off. I did try to download the data. He needs to use it more than what he is using right now. He understands use has use it at least 4 hours a night. He is going to work on that. In the meantime he needs to get supplies. I will request supplies from [employer]. The patient has had this machine since 06/22/2019. He understands that if he were to get a new 1 able to have to be after 5 years. Therefore, will follow-up in 6 months and at that point the machine still not working well we can request a replacement machine. 08/16/2024 the patient is here for pulmonary follow-up visit. He is struggling with CPAP. Feels like the pressures are low again. Was made to adjust them again. Unfortunately is not connecting he did not bring it in. Therefore, he is going to go home and connected to the wall socket and then again wirelessly increase the pressures further. He needs to make sure to use a fullface mask. He also having an evaluation with orthopedics I Lindsay Henderson for his knee. He is going to need a likely a total knee replacement. He is having significant issues walking. Right now his respiratory symptoms are stable he is using his inhalers. He is able to proceed with anesthesia and surgery at this time. It does carry some moderate risk for perioperative pulmonary complications which include, atelectasis, hypoxia, pneumonia and bronchospasms. But at this time he is medically optimized and maybe proceed with consenting for surgery. The patient will return in 4 months. When he returns he is going to bring CPAP to make sure that we adequately adjusted. [facility] Medical History (Updated 08/16/24 @ 10:09 by Terry Torrez MD) Osteoarthritis of both hands Metastatic colon cancer to liver Seronegative inflammatory arthritis Pain of both wrist joints Bilateral hand swelling Arthritis Chest pain Asthma Sacroiliitis Chronic pain syndrome Bilateral primary osteoarthritis of knee Liver cancer Dyspnea Chest pain Abnormal chest x-ray DIANNA on CPAP Abnormal chest x-ray with multiple lung nodules Lung nodule seen on imaging study Foreign body (FB) in soft tissue Liver cancer Morbid obesity Surgical History History of incisional hernia repair (10/05/18) History of lung surgery Family History Brother Arthritis Social History Alcohol intake: never Patient Tobacco Use Status: Never used Tobacco Review of Systems Const Denies daytime sleepiness, Denies excessive sweating, Denies fatigue, Denies snoring, Denies stops breathing during sleep and Reports weight loss Eyes Denies change in vision ENT Reports Normal hearing present Card Reports chest pain, Denies chest pain with activity, Denies diaphoresis, Denies syncope, Denies rapid heart rate, Denies pedal edema, Reports dyspnea and Reports dyspnea on exertion Resp Denies chest congestion, Reports cough, Denies hemoptysis, Denies pain on inspiration, Denies pain with cough, Reports dyspnea, Reports dyspnea on exertion, Denies snoring and Denies wheezing GI Denies abdominal pain, Denies belching, Denies melena and Denies bloating Denies urinary incontinence Musc Reports as per HPI Neuro Reports Normal hearing present, Denies syncope, Denies memory loss, Denies seizure-like activity and Denies Sensory deficit (Neuro) Psych Denies irritability, Denies anhedonia, Denies memory loss, Denies visual hallucinations, Denies hallucinations, Denies tactile hallucinations, Denies homicidal ideation and Denies suicidal ideation Endo Denies excessive sweating and Denies fatigue Aller/Immun Denies wheezing Physical Exam Vital Signs: Last Vital Signs Pulse 90 08/16/24 09:57 BP 164/78 H 08/16/24 09:57 Pulse Ox 97 08/16/24 09:57 Oxygen Delivery Method Room Air 08/16/24 09:57 BMI result Body Mass Index 38.4 Const General: comfortable HEENT Head: Yes normocephalic General nose exam: Abnormal external nose present and Nasal discharge present Neck Neck: Yes supple Chest Chest palpation & inspection: normal inspection of the chest Resp Effort & Inspection: Actively coughing Auscultation: no rales, no rhonchi, no wheezes and diminished lung sounds Cardio Rate: regular rate Rhythm: regular rhythm Heart sounds: S1 normal heart sound present and S2 normal heart sound present GI Palpation (GI): Soft to palpation and nontender Auscultation: normal bowel sounds Skin General skin exam: no rashes or lesions noted Neuro Cranial nerves: Yes Normal hearing present Sensory Exam: No Sensory deficit (Neuro) Extrem General: No clubbing and No cyanosis Assessment & Plan Assessment & Plan (1) DIANNA on CPAP: Code(s): G47.33 - Obstructive sleep apnea (adult) (pediatric); Z99.89 - Dependence on other enabling machines and devices Category: Medical (2) Asthma: Code(s): J45.909 - Unspecified asthma, uncomplicated Category: Medical Qualifiers: Asthma complication type: uncomplicated Asthma persistence: persistent Asthma severity: moderate Qualified Code(s): J45.40 - Moderate persistent asthma, uncomplicated (3) Dyspnea: Code(s): R06.00 - Dyspnea, unspecified Category: Medical Qualifiers: Dyspnea type: dyspnea on exertion Qualified Code(s): R06.09 - Other forms of dyspnea (4) Liver cancer: Code(s): C22.9 - Malignant neoplasm of liver, not specified as primary or secondary Category: Medical Qualifiers: Liver malignancy type: hepatocellular carcinoma Qualified Code(s): C22.0 - Liver cell carcinoma (5) Pre-op chest exam: Code(s): Z01.811 - Encounter for preprocedural respiratory examination Category: Medical Plan Low sodium diet continue Trelegy GEMMA as needed continue APAP 14-18, needs supplies gabapentin at night to improve sleep anf neuro pathic pain may proceed with anesthesia and surgery from a pulmonary standpoint. Does have increase risk for iggy-operative pulmonary complications, which include; atelectasis, hypoxia, asthma and pneumonia. He is medically optimized at this time. F/U 6 months Coding Level of Care Code Est Pt Level 4 (92997) Diagnoses DIANNA on CPAP G47.33; Z99.89 Moderate persistent asthma without complication J45.40 Asthma complication type: uncomplicated Asthma persistence: persistent Asthma severity: moderate Dyspnea on exertion R06.09 Dyspnea type: dyspnea on exertion Hepatocellular carcinoma C22.0 Liver malignancy type: hepatocellular carcinoma Pre-op chest exam Z01.811 Time Spent (min) 16
== END 2024-08-16 10:16 | disposition home or self-care (01) ==
PROVIDERS: PCP Nurse Practitioner Primary Care; Visit Provider Hospitalist
DX: G47.33 Obstructive sleep apnea (adult) (pediatric) (principal); Z99.89 Dependence on other enabling machines and devices; J45.40 Moderate persistent asthma, uncomplicated; R06.09 Other forms of dyspnea; C22.0 Liver cell carcinoma; Z01.811 Encounter for preprocedural respiratory examination
CPT/HCPCS: 99214

== ENCOUNTER 2024-10-06 14:24 | Outpatient (REF) | payer MEDICAID, SELFPAY ==
[2024-10-06 15:11] LABS: Cocaine Screen Urine POSITIVE (Not Detect); Oxycodone Screen Urine Not Detected (Not Detect)
--- OUTSIDE RECORDS SUMMARY | 2024-10-06 17:43 | XMS_ITS | Encounter Summary ---
Author Organization [email or web address] Address [address] [place] [address] Care Team Providers Care Insurance Claims Supervisor Name Role Phone Marleni Whyte ANP Primary Care Provider [phone] Joe Garcia PharmD Unavailable [phone] Reason for Visit * Reason Comments Med Refill Encounter Details Date Type Department Care Team ([facility] st Contact Info) Description 06/01/2023 Refill [facility] [address] [place], [place] [phone] Marleni Whyte ANP [address] [place] [address] Other chronic pain Social History Tobacco Use Types Packs/Day Years Used Date Smoking Tobacco: Never Passive Smoke Exposure: Never Smokeless Tobacco: Never Alcohol Use Standard Drinks/Week Comments Not Currently 0 (1 standard drink = 0.6 oz pur e alcohol) Depression Answer Date Recorded Patient Health Questionnaire-9 Score 0 08/20/2022 Housing Stability Answer Date Recorded What is your housing situation today? I have dayday may 05/18/[address] you li ve. Do you have problems with any of the following? None of the above 05/18/2023 Food Insecurity Answer Date Recorded Within the past 12 months, y ou worried that your food would run out before you got money to buy more: Never True 05/18/2023 Within the past 12 months,th e food you bought just didn't last and you didn't have enough money to get more: Never True Transportation Answer Date Recorded In the past 12 months, has l ack of transportation kept you from medical appts, meetings, work or from getting things needed for daily living? No 05/18/2023 Utilities Answer Date Recorded In the past 12 months, has t he electric, gas, oil or water company threatened to shut off services in your home? No 05/18/2023 Depression Answer Date Recorded Patient Health Questionnaire-2 Score 0 08/20/2022 Sex and Gender Information Value Date Recorded Sex Assigned at Male 06/02/2022 10:30 AM EDT Legal Sex Male 10:30 AM EDT Gender Identity Male 06/02/2022 10:30 AM EDT Sexual Orientation Straight 06/02/2022 10 :30 AM EDT documented as of this encounter Miscellaneous Notes * Telephone Encounter - Rosalina Rodriguez RN - 06/01/2023 4:39 PM EDT TC to pt to schedule [employer] [place], no answer. Call got disconnected x2, unable to lvm documented in this encounter Plan of Treatment Upcoming Encounters Date Type Department Care Team (Late st Contact Info) Description 10/19/2024 3:00 PM EDT Office Visit [facility] [address] [place] [phone] Marleni Whyte ANP [address] [place] [phone] 11/08/2024 9:45 AM EDT Office Visit [address] [id number] documented as of this encounter Visit Diagnoses Diagnosis Other chronic pain documented in this encounter Additional Health Concerns Assessment Noted Time PHQ-9 Depression Total Score: 0 08/20/19 23 2:04 PM EST documented as of this encounter Care Teams Insurance Claims Supervisor Relationship Specialty Start Date End Date Marleni Whyte ANP [address] [place] [phone] PCP - General Family Medicine 06/23/22 Joe Garcia, ErickD [address] [place] [phone] Pharmacist Internal Medicine 07/04/24 Elmer Lisa Color Separation PhotographerLaundry Route Driver 10/09/23 documented as of this encounter
--- OUTSIDE RECORDS SUMMARY | 2024-10-06 17:43 | XMS_ITS | Encounter Summary ---
Author Organization [employer] Address [address] [place] [address] Care Team Providers Care Braiding Machine Operator Name Role Phone Marleni Whyte Primary Care Provider [phone] Joe Garcia PharmD Unavailable [phone] Reason for Visit * Reason Onset Date Comments Med Refill 05/30/2024 Encounter Details Date Type Department Care Team ([facility] st Contact Info) Description 05/30/2024 Telephone [facility] MEDICINE [address] [place], [place] [phone] Marleni Whyte ANP [address] [place], [place] [phone] Med Refill Social History Tobacco Use Types Packs/Day Years Used Date Smoking Tobacco: Never Passive Smoke Exposure: Never Smokeless Tobacco: Never Alcohol Use Standard Drinks/Week Comments Not Currently 0 (1 standard drink = 0.6 oz pur e alcohol) Depression Answer Date Recorded Patient Health Questionnaire-9 Score 25 09/17/2023 Patient Health Questionnaire-9 Score 25 09/17/2023 Last PHQ-9: Questionnaire Data Not on file 0 09/17/2023 Housing Stability Answer Date Recorded What is your housing situation today? I have dayday may 09/08/[address] you li ve. Do you have problems with any of the following? None of the above 09/08/2023 Food Insecurity Answer Date Recorded Within the past 12 months, y ou worried that your food would run out before you got money to buy more: Often true 09/08/2023 Within the past 12 months,th e food you bought just didn't last and you didn't have enough money to get more: Often true 01/2024 Transportation Answer Date Recorded In the past 12 months, has l ack of transportation kept you from medical appts, meetings, work or from getting things needed for daily living? No 09/08/2023 Utilities Answer Date Recorded In the past 12 months, has t he electric, gas, oil or water company threatened to shut off services in your home? No 09/08/2023 Depression Answer Date Recorded Patient Health Questionnaire-2 Score 6 09/17/2023 Sex and Gender Information Value Date Recorded Sex Assigned at Male 06/02/2022 10:30 AM EDT Legal Sex Male 10:30 AM EDT Gender Identity Male 06/02/2022 10:30 AM EDT Sexual Orientation Straight 06/02/2022 10 :30 AM EDT documented as of this encounter Miscellaneous Notes * Telephone Encounter - Shelbi Maldonado - 05/30/2024 10:30 AM EDT TC from pt requesting medication refill. Medications needing refill : oxyCODONE (Roxicodone) 5 MG To be sent to: [facility] documented in this encounter Plan of Treatment Upcoming Encounters Date Type Department Care Team (Late st Contact Info) Description 10/19/2024 3:00 PM EDT Office Visit [facility] MEDICINE [address] [place] [phone] Marleni Whyte ANP [address] [place] [phone] 11/08/2024 9:45 AM EDT Office Visit [facility] MEDICINE [address] [place] [phone] documented as of this encounter Visit Diagnoses Not on filedocumented in this encounter Additional Health Concerns Assessment Noted Time PHQ-9 Depression Total Score: 25 024 11:06 AM EST documented as of this encounter Care Teams Braiding Machine Operator Relationship Specialty Start Date End Date Marleni Whyte ANP [address] [place] [id number] PCP - General Family Medicine 06/23/22 Joe Garcia, PharmD [address] [place] [address] Pharmacist Internal Medicine 07/04/24 Elmer Lisa Outside Machinist HelperAutomotive Electrical Fitter 10/09/23 documented as of this encounter
--- OUTSIDE RECORDS SUMMARY | 2024-10-06 17:43 | XMS_ITS | Encounter Summary ---
Author Organization [employer] Address [address] [place] [address] Care Team Providers Care Director Process Improvement Name Role Phone Marleni Whyte Primary Care Provider [phone] Joe Garcia PharmD Unavailable [phone] Reason for Visit * Reason Comments Med Refill Encounter Details Date Type Department Care Team ([facility] st Contact Info) Description 06/22/2023 Refill [facility] MEDICINE [address] [place], [place] [phone] Marleni Whyte ANP [address] [place] [address] Primary osteoarthritis of right knee Social History Tobacco Use Types Packs/Day Years [...] AM EDT documented as of this encounter Plan of Treatment Upcoming Encounters Date Type Department Care Team (Late st Contact Info) Description 10/19/2024 3:00 PM EDT Office Visit [address] [address] Marleni Whyte ANP [address] [place] [phone] 11/08/2024 9:45 AM EDT Office Visit [address] [address] documented as of this encounter Visit Diagnoses Diagnosis Primary osteoarthritis of right knee documented in this encounter Additional Health Concerns Assessment Noted Time PHQ-9 Depression Total Score: 0 08/20/19 23 2:04 PM EST documented as of this encounter Care Teams Director Process Improvement Relationship Specialty Start Date End Date Marleni Whyte ANP [address] [place] [phone] PCP - General Family Medicine 06/23/22 Joe Garcia, ErickD [address] [place] [phone] Pharmacist Internal Medicine 07/04/24 Elmer Lisa Commercial TechnicianScratcher Tender 10/09/23 documented as of this encounter
--- OUTSIDE RECORDS SUMMARY | 2024-10-06 17:43 | XMS_ITS | Encounter Summary ---
Author Organization [employer] Address [address] [place] [address] Care Team Providers Care Dry Cell Tester Name Role Phone Marleni Whyte ANP Primary Care Provider [phone] Joe Garcia PharmD Unavailable [phone] Reason for Visit * Reason Comments Med Refill Encounter Details Date Type Department Care Team ([facility] st Contact Info) Description 06/02/2023 Refill [facility] [address] [place], [place] [phone] Marleni Whyte ANP [address] [place] [address] Other chronic pain Social History Tobacco Use [...] Description 10/19/2024 3:00 PM EDT Office Visit [address] [address] Marleni Whyte ANP [address] [place] [address] 11/08/2024 9:45 AM EDT Office Visit [address] [address] documented as of this encounter Visit Diagnoses Diagnosis Other chronic pain documented in this encounter Additional Health Concerns Assessment Noted Time PHQ-9 Depression Total Score: 0 08/20/19 23 2:04 PM EST documented as of this encounter Care Teams Dry Cell Tester Relationship Specialty Start Date End Date Marleni Whyte ANP [address] [place] [phone] PCP - General Family Medicine 06/23/22 Joe Garcia, ErickD [address] [place] [address] Pharmacist Internal Medicine 07/04/24 Elmer Lisa Medical Records CoordinatorProcurement Manager 10/09/23 documented as of this encounter
--- OUTSIDE RECORDS SUMMARY | 2024-10-06 17:43 | XMS_ITS | Encounter Summary ---
Author Organization [employer] Address [address] [place] [address] Care Team Providers Care Tar Distributor Operator Name Role Phone Marleni Whyte Primary Care Provider [phone] Joe Garcia PharmD Unavailable [phone] Reason for Visit * Reason Comments Med Refill Encounter Details Date Type Department Care Team ([facility] st Contact Info) Description 09/14/2024 Refill [facility] MEDICINE [address] [place], [place] [phone] Marleni Whyte ANP [address] [place], [place] [phone] Primary osteoarthritis of right knee Social History [...] enough money to get more: Often true 02/ 01/2024 Transportation Answer Date Recorded In the [...] Description 10/19/2024 3:00 PM EDT Office Visit [address] [address] Marleni Whyte ANP [address] [place] [phone] 11/08/2024 9:45 AM EDT Office Visit [address] [address] documented as of this encounter Visit Diagnoses Diagnosis Primary osteoarthritis of right knee documented in this encounter Additional Health Concerns Assessment Noted Time PHQ-9 Depression Total Score: 25 024 11:06 AM EST documented as of this encounter Care Teams Tar Distributor Operator Relationship Specialty Start Date End Date Marleni Whyte ANP [address] [place] [phone] PCP - General Family Medicine 06/23/22 Joe Garcia, Adelaida [address] [place] [phone] Pharmacist Internal Medicine 07/04/24 Elmer Lisa Propeller TesterProcess Plant Operator 10/09/23 documented as of this encounter
--- OUTSIDE RECORDS SUMMARY | 2024-10-06 17:43 | XMS_ITS | Clinical Summary ---
Author Organization [facility] Address [address] [place] [address] Phone Care Team Providers Care Firer Automatic Stoker Name Role Phone Physician, No Pcp Primary Care Provider Unavaila ble Allergies Active Allergy Reactions Criticality Noted Date Comments Acetaminophen High 05/24/2019 Other reaction(s): Liver Toxicity Note from previous EHR: not allergic but per oncologist is contraindicated due to active liver metastases Aspirin Unknown 07/10/2019 Medications miconazole nitrate 2 % aerosol,spray Apply 1 Applicator topically daily. 4 Active Alcohol Prep Pads pads, medicated See administration instructions. 4 Active aspirin 81 mg EC tablet Take 1 tablet (81 mg total) by mouth 1 (one) time each day in the morning. 4 Active buPROPion XL (WELLBUTRIN XL) 150 mg 24 hr tablet Take 1 tablet (150 mg total) by mouth 1 (one) time each day in the morning. 4 Active cyanocobalamin (VITAMIN B-12) 1,000 mcg/mL injection Inject 1 mL (1,000 mcg total) into the shoulder, thigh, or buttocks every 30 (thirty) days. 4 Active cholecalcifero l (VITAMIN D-3) 50 mcg (2,000 unit) tablet Take 1 tablet (2,000 Units total) by mouth. 4 Active Trulicity 4.5 mg/0.5 mL pen injector injection INJECT ONE PEN (= 4.5MG) SUBCUTANEOUSLY ONCE A WEEK DIRECTED 4 Active FreeStyle Isidro 2 [place] misc USE DIRECTED EVERY 8 HOURS 4 Active FreeStyle Isidro 2 Sensor kit USE DIRECTED CHANGE EVERY 14 DAYS 4 Active folic acid (FOLVITE) 1 mg tablet Take 1 tablet (1,000 mcg total) by mouth 1 (one) time each day in the morning. 4 Active gabapentin (NEURONTIN) 300 mg capsule TAKE 1 CAPSULE BY MOUTH TWICE DAILY IN THE MORNING AND AT NOON and TAKE 2 CAPSULES BY MOUTH EVERY DAY AT BEDTIME 4 Active ketoconazole (NIZORAL) 2 % shampoo APPLY TO THE AFFECTED AREA(S) TOPICALLY TWICE A WEEK 4 Active TRUEplus Lancets 33 gauge misc TEST BLOOD SUGAR ONCE DAILY OR MORE OFTEN NEEDED 4 Active melatonin 5 mg tablet Take 1 tablet (5 mg total) by mouth. at bedtime. 4 Active metFORMIN (GLUCOPHAGE) 500 mg tablet TAKE 2 TABLETS BY MOUTH TWICE DAILY IN THE MORNING AND EVENING WITH FOOD 4 Active FreeStyle Precision Miguel Ángel Strips test strip 4 (four) times a day. 4 Active Dexcom G7 Contact Center Analyst misc use as directed to test blood sugar 4 Active naloxone (NARCAN) 4 mg/0.1 mL nasal spray FOR SUSPECTED OPIOID OVERDOSE. SPRAY 0.1mL IN ONE NOSTRIL. REPEAT IN ALTERNATE NOSTRIL 2-3 MINUTES IF NEEDED. SEEK MEDICAL ATTENTION IMMEDIATELY EVEN IF PATIENT RESPONDS. 4 Active oxyCODONE (ROXICODONE) 5 mg immediate release tablet TAKE 1 TABLET BY MOUTH EVERY 6 HOURS NEEDED FOR SEVERE PAIN FOR UP TO 20 DAYS 5 Active pantoprazole (PROTONIX) 40 mg EC tablet Take 1 tablet (40 mg total) by mouth 1 (one) time each day before breakfast. 4 Active predniSONE (DELTASONE) 5 mg tablet Take by mouth 1 (one) time each day. 4 Active rosuvastatin (CRESTOR) 5 mg tablet Take 1 tablet (5 mg total) by mouth 1 (one) time each day in the morning. 4 Active valsartan-hydr oCHLOROthiazid e (DIOVAN-HCT) 160-25 mg per tablet TAKE 1 TABLET BY MOUTH EVERYDAY AT NOON 4 Active loperamide (IMODIUM A-D) 2 mg tablet Take 1 tablet (2 mg total) by mouth 4 (four) times a day if needed for diarrhea. Active albuterol HFA (PROVENTIL HFA;VENTOLIN HFA) 108 (90 Base) MCG/ACT inhaler Inhale 2 puffs by mouth every 6 (six) hours if needed for wheezing. Active Active Problems Problem Noted Date Diagnosed Date Asthenia 08/31/2024 Blood in urine 08/31/2024 Chronic low back pain 08/31/2024 Cobalamin deficiency 08/31/2024 Dissociative disorder 08/31/2024 Dyspnea 08/31/2024 HTN (hypertension) 08/31/2024 Fall 08/31/2024 Folliculitis 08/31/2024 GERD without esophagitis 08/31/2024 GI (gastrointestinal hemorrhage) 08/31/2024 Habitual snoring 08/31/2024 Hand joint pain 08/31/2024 Hemoptysis 08/31/2024 Incisional hernia 08/31/2024 Knee pain 08/31/2024 Malignant neoplastic disease 08/31/2024 Low serum vitamin B12 08/31/2024 DIANNA (obstructive sleep apnea) 08/31/2024 Osteoarthritis of right knee 08/31/2024 Pulmonary function studies abnormal 08/31/2024 Pleuritic pain 08/31/2024 Rectal polyp 08/31/2024 Reactive depression 08/31/2024 Severe episode of recurrent major depressive disorder, without psychotic features 08/31/2024 Umbilical hernia without obstruction and without gangrene 08/31/2024 Sinusitis 08/31/2024 Hematemesis 08/31/2024 Upper GI bleeding 08/31/2024 Weight loss 08/31/2024 Type 2 diabetes mellitus 08/31/2024 Metastatic malignant neuroendocrine tumor to yosef er 08/31/2024 WINSTON (generalized anxiety disorder) 08/31/2024 Grief 08/31/2024 Resolved Problems Problem Noted Date Diagnosed Date Resolved Date Thoracic spine pain 08/31/2024 08/31/19 25 Encounters Date Type Department Care Team Description 08/31/2024 1:30 PM EST Consult Orthopedic Surgery - [address] [address] Marylu Garcia NP Primary osteoarthritis of right knee (Primary Dx); Class 3 severe obesity with body mass index (BMI) of 40.0 to 44.9 in adult, unspecified obesity type, unspecified whether serious comorbidity present (CMS/HCC) 08/05/2024 7:16 PM EST - 08/05/2024 9:12 PM EST Emergency [facility] Emergency [address] [place] [address] Discharge Disposition: Home or Self Care from Last 3 Months Surgical History Surgery Date Site/Laterality Comments LUNG SURGERY LUNG REMOVAL, PARTIAL Left Medical History Medical History Date Comments HTN (hypertension) DX:HTN (hyper tension) T2DM (type 2 diabetes mellitus) (CMS/HCC) DX:T2DM (type 2 diabetes mellitus) (HCC) Liver cancer (CMS/HCC) DX:Liver cancer (HCC) Cancer (CMS/HCC) Hernia of abdominal cavity Diabetes mellitus (CMS/HCC) Asthma COPD (chronic obstructive pu lmonary disease) (CMS/HCC) Social History Tobacco Use Types Packs/Day Years Used Date Smoking Tobacco: Never Smokeless Tobacco: Never Tobacco Cessation:Counseling Given: Not Answered Sex and Gender Information Value Date Recorded Sex Assigned at Male 08/24/2024 5:40 PM EST Legal Sex Male 11:07 AM EDT Gender Identity Male 08/24/2024 5:40 PM EST Sexual Orientation Choose not to disclose 2024 5:40 PM EST Obstetrics History Last Filed Vital Signs Vital Sign Reading Time Taken Comments Blood Pressure 141/103 08/05/2024 7:54 PM EST Pulse 85 08/05/2024 7:54 PM EST Temperature 36.9 ??C (98.5 ??F) 08/05/2024 7:54 PM ES T Respiratory Rate 18 08/05/2024 7:54 PM EST Oxygen Saturation 96% 08/05/2024 7:54 PM EST Inhaled Oxygen Concentration - - Weight 125 kg (275 lb) 08/05/2024 7:54 PM EST Height 175.3 cm (5' 9 ) 08/05/2024 7:54 PM EST Body Mass Index 40.61 08/05/2024 7:54 PM EST Plan of Treatment Health Maintenance Due Date Last Done Comments Diabetes: Annual Foot Exam 1970 Diabetes: Annual Retina Eye Exam 1970 Hepatitis A Vaccines (1 of 2 - Risk 2-dose series) 1979 Hepatitis B Vaccines (3 of 3 - Risk 3-dose series) 11/29/2018 10/04/2018, 09/01/2016 Zoster Vaccines (2 of 2) 01/30/2023 12/05/2022 Colorectal Cancer Screening: Colonoscopy 02/26/2024 HIV Screening 02/26/2024 Hepatitis C Screening 02/26/2024 Social Influencers of Health Screening 02/26/2024 Diabetes: Annual Urine Albumin-Creatinine Ratio (uACR) 08/31/2024 Depression Screening 09/17/2024 09/17/2023 Diabetes: Blood Sugar Control Test (HGBA1C) 01/12/2025 07/14/2024 Diabetes: Annual GFR (Glomerular Filtration Rate) 08/05/2025 08/05/2024 Hypertension/CHF/CAD Annual BMP Blood Test 08/05/2025 08/05/2024 DTaP,Tdap,and Td Vaccines (2 - Td or Tdap) 10/04/2028 10/04/2018 Cholesterol Screening (Lipid Panel) 05/06/2029 05/06/2024 Pneumococcal Vaccine: 50+ Years Completed 12/05/2022, 09/09/2021 Pneumococcal Vaccine: Pediatrics (0 to 5 Years) and At-Risk Patients (6 to 64 Years) Completed 12/05/2022, 09/09/2021 RSV Immunization Patients 60+ Years Old Completed 09/17/2023 COVID-19 Vaccine Completed 07/04/2024, , 10/24/2020, Additional history exists Influenza Vaccine Completed 07/04/2024, , 06/21/2021, Additional history exists HIB Vaccines Aged Out No longer eligi ble based on patient's age to complete this topic HPV Vaccines Aged Out No longer eligi ble based on patient's age to complete this topic IPV Vaccines Aged Out No longer eligi ble based on patient's age to complete this topic MMR Vaccines Aged Out No longer eligi ble based on patient's age to complete this topic Meningococcal ACWY Vaccine Aged Out N o longer eligible based on patient's age to complete this topic Meningococcal B Vacine Aged Out No lo nger eligible based on patient's age to complete this topic RSV Immunization Patients Under 20 months Aged Out No longer eligible based on patient's age to complete this topic Varicella Vaccines Aged Out No longer eligible based on patient's age to complete this topic Procedures Procedure Name Priority Date/Time Associated Diagnosis Comments XR KNEE 4+ VIEWS RIGHT Routine 08/31/2024 1:45 PM EST Unilateral primary osteoarthritis, right knee XR CHEST 2 VIEWS STAT 08/05/2024 8:16 PM EST CBC WITH AUTO DIFFERENTIAL STAT 08/05/2024 8:03 PM EST TROPONIN I HIGH SENSITIVITY STAT 08/05/2024 8:03 PM EST MAGNESIUM STAT 08/05/2024 8:03 PM EST BASIC METABOLIC PANEL STAT 08/05/2024 8:03 PM EST CBC AND DIFFERENTIAL STAT 08/05/2024 8:03 PM EST ECG OUTSIDE 08/05/2024 from Last 3 Months Results * XR Knee 4+ Views Right (08/31/2024 1:45 PM EST) Anatomical Region Laterality Modality Lower Extremities, Knee Right Computed Radiography Narrative 08/31/2024 3:06 PM EST Date of Visit: 08/31/2024 Reason for visit: ?? Right knee pain Views: AP, Lateral, Garza, [place] right knee Findings: On AP view there is severe narrowing through both the medial and lateral compartments of the right knee with near [id number] articulation medially. ??Subchondral sclerosis, marginal osteophytes. ??On lateral view, there are large anterior femoral as well as patellar osteophytes. ??Severe degenerative changes of the patellofemoral compartment on both lateral and sunrise view. ??No acute findings. Impression: Advanced osteoarthritis right knee Marylu Garcia VOCATIONAL GUIDANCE COUNSELOR IMG XR PROCEDURES Final Result * XR Chest 2 Views (08/05/2024 8:16 PM EST) Anatomical Region Laterality Modality Body Radiographic Moni ging 08/06/2024 1:21 PM EST Impressions 08/06/2024 1:24 PM EST FINDINGS/IMPRESSION: Small left pleural effusion with adjacent opacity, likely atelectasis right lung is clear. ??No pneumothorax. ??Cardiac silhouette is normal in size. ??Degenerative changes seen throughout the bones. ??Old healed bilateral rib fracture deformities are similar compared to prior. ??No acute displaced fracture. -------- FINAL REPORT -------- Dictated By: LEOLA RENEE Dictated Date: 08/06/2024 13:21 ET Assigned Physician: LEOLA RENEE Reviewed and Electronically Signed By: LEOLA RENEE Signed Date: 08/06/2024 13:24 ET Workstation ID: [id number] Transcribed By: Self Edit Transcribed Date: 08/06/2024 13:21 ET Narrative 08/06/2024 1:24 PM EST XR CHEST 2 VIEWS INDICATION: ??Chest pain TECHNIQUE: XR CHEST 2 VIEWS COMPARISON: 07/10/2019 Procedure Note Leola Renee MD - 08/06/2024 XR CHEST 2 VIEWS INDICATION: Chest pain TECHNIQUE: XR CHEST 2 VIEWS COMPARISON: 07/10/2019 IMPRESSION: FINDINGS/IMPRESSION: Small left pleural effusion with adjacent opacity,likely atelectasis right lung is clear. No pneumothorax. Cardiacsilhouette is normal in size. Degenerative changes seen throughout thebones. Old healed bilateral rib fracture deformities are similar comparedto prior. No acute displaced fracture. -------- FINAL REPORT -------- Dictated By: LEOLA RENEE Dictated Date: 08/06/2024 13:21 ET Assigned Physician: LEOLA RENEE Reviewed and Electronically Signed By: LEOLA RENEE Signed Date: 08/06/2024 13:24 ET Workstation ID: [id number] Transcribed By: Self Edit Transcribed Date: 08/06/2024 13:21 ET Nomi Rutherford MD IM XR PROCEDURES Final Result * Troponin I high sensitivity (08/05/2024 8:03 PM EST) High Sensitivity Troponin I 29 <=79 ng/L LAB CHEMISTRY METHOD 08/05/2024 8:42 PM [facility] Blood Venous blood specimen / Unknown Venipuncture / Unknown 08/05/2024 8:03 PM EST 08/05/2024 8:09 PM EST Narrative [facility] - 08/05/2024 8:42 PM EST High levels of biotin in samples may falsely decrease hsTroponin values. ??Use caution when interpreting hsTroponin results in patients taking biotin who exhibit renal impairment (eGFR <60) or in patients taking more than 20 mg/day of biotin. us Nomi Rutherford MD LAB BLOOD ORDERABLES Final Resu lt [facility] [address] [place] [address], * (ABNORMAL) CBC auto differential (08/05/2024 8:03 PM EST) WBC 9.6 4.8 - 10.8 K/mcL LAB HEMETOLOGY METHOD 08/05/2024 8:15 PM [facility] RBC 4.30(L) 4.50 - 5.50 M/[facility] LAB HEMETOLOGY METHOD 08/05/2024 8:15 PM [facility] Hemoglobin 12.6(L) 13.5 - 17.5 g/dL LAB HEMETOLOGY METHOD 08/05/2024 8:15 PM [facility] Hematocrit 38.4(L) 42.0 - 54.0 % LAB HEMETOLOGY METHOD 08/05/2024 8:15 PM [facility] MCV 88.9 79.0 - 98.0 FL LAB HEMETOLOGY METHOD 08/05/2024 8:15 PM [facility] MCH 29.2 27.0 - 32.0 pcg LAB HEMETOLOGY METHOD 08/05/2024 8:15 PM [facility] MCHC 32.8 32.0 - 37.0 g/dL LAB HEMETOLOGY METHOD 08/05/2024 8:15 PM [facility] RDW 13.1 11.0 - 15.0 % LAB HEMETOLOGY METHOD 08/05/2024 8:15 PM [facility] Platelets 219 130 - 400 K/mcL LAB HEMETOLOGY METHOD 08/05/2024 8:15 PM [facility] MPV 11.1(H) 7.0 - 11.0 FL LAB HEMETOLOGY METHOD 08/05/2024 8:15 PM [facility] NRBC 0.0 <1.0 % LAB HEMETOLOGY METHOD 08/05/2024 8:15 PM [facility] NRBC Absolute 0.00 <0.10 K/mcL LAB HEMETOLOGY METHOD 08/05/2024 8:15 PM [facility] Neutrophils Relative 61.8 % LAB HEMETOLOGY METHOD 08/05/2024 8:15 PM [facility] Lymphocytes Relative 30.0 % LAB HEMETOLOGY METHOD 08/05/2024 8:15 PM [facility] Monocytes Relative 6.4 % LAB HEMETOLOGY METHOD 08/05/2024 8:15 PM [facility] Eosinophils Relative 1.0 % LAB HEMETOLOGY METHOD 08/05/2024 8:15 PM [facility] Basophils Relative 0.5 % LAB HEMETOLOGY METHOD 08/05/2024 8:15 PM [facility] Immature Granulocytes Relative 0.3 % LAB HEMETOLOGY METHOD 08/05/2024 8:15 PM [facility] Neutrophils Absolute 5.94 1.50 - 7.00 K/mcL LAB HEMETOLOGY METHOD 08/05/2024 8:15 PM [facility] Lymphocytes Absolute 2.89 1.00 - 5.00 K/mcL LAB HEMETOLOGY METHOD 08/05/2024 8:15 PM EST [facility] Monocytes Absolute 0.62 0.20 - 1.00 K/mcL LAB HEMETOLOGY METHOD 08/05/2024 8:15 PM EST [facility] Eosinophils Absolute 0.10 0.00 - 0.50 K/mcL LAB HEMETOLOGY METHOD 08/05/2024 8:15 PM EST [facility] Basophils Absolute 0.05 0.00 - 0.20 K/[facility] HEMETOLOGY METHOD 08/05/2024 8:15 PM EST [facility] Immature Granulocytes Absolute 0.03 0.00 - 0.03 K/[facility] LAB HEMETOLOGY METHOD 08/05/2024 8:15 PM EST [facility] Blood Venous blood specimen / Unknown Venipuncture / Unknown 08/05/2024 8:03 PM EST 08/05/2024 8:09 PM EST Nomikay Rutherford MD LAB BLOOD ORDERABLES Final Resu lt [facility] [address] [place] [address], [place] [phone] * (ABNORMAL) Magnesium (08/05/2024 8:03 PM EST) Magnesium 1.7(L) 1.9 - 2.6 mg/dL LAB CHEMISTRY METHOD 08/05/2024 8:35 PM EST [facility] Blood Venous blood specimen / Unknown Venipuncture / Unknown 08/05/2024 8:03 PM EST 08/05/2024 8:09 PM EST Nomi Rutherford MD LAB BLOOD ORDERABLES Final Resu lt [facility] [address] [place] [address], [place] [phone] * (ABNORMAL) Basic metabolic panel (08/05/2024 8:03 PM EST) Sodium 134 133 - 145 mmol/L LAB CHEMISTRY METHOD 08/05/2024 8:35 PM [facility] Potassium 3.4(L) 3.5 - 5.5 mmol/L LAB CHEMISTRY METHOD 08/05/2024 8:35 PM [facility] Chloride 101 96 - 110 mmol/L LAB CHEMISTRY METHOD 08/05/2024 8:35 PM [facility] CO2 29 21 - 32 mmol/L LAB CHEMISTRY METHOD 08/05/2024 8:35 PM [facility] Anion Gap 4 3 - 11 LAB CHEMISTRY METHOD 08/05/2024 8:35 PM [facility] Glucose 159(H) 70 - 100 mg/dL LAB CHEMISTRY METHOD 08/05/2024 8:35 PM [facility] BUN 13 5 - 25 mg/dL LAB CHEMISTRY METHOD 08/05/2024 8:35 PM [facility] Creatinine 0.86 0.70 - 1.30 mg/dL LAB CHEMISTRY METHOD 08/05/2024 8:35 PM [facility] eGFR 97 >=60 mL/min/1. 73m2 LAB CHEMISTRY METHOD 08/05/2024 8:35 PM [facility] Comment:Calculation based on the??Chronic Kidney Disease Epidemiology Collaboration (CKD-EPI) equation refit??without adjustment for race. BUN/Creatinine Ratio 15.1 LAB CHEMISTRY METHOD 08/05/2024 8:35 PM [facility] Calcium 8.4(L) 8.5 - 10.5 mg/dL LAB CHEMISTRY METHOD 08/05/2024 8:35 PM [facility] Blood Venous blood specimen / Unknown Venipuncture / Unknown 08/05/2024 8:03 PM EST 08/05/2024 8:09 PM EST Nomi Rutherford MD LAB BLOOD ORDERABLES Final Resu lt [facility] [address] [place] [address], * ECG-Outside (08/05/2024) Provider Onbase ECG ORDERABLES Final Result from Last 3 Months [id number] Care Teams Firer Automatic Stoker Relationship Specialty Start Date End Date Physician, No Pcp PCP - General 08/05/24
--- OUTSIDE RECORDS SUMMARY | 2024-10-06 17:43 | XMS_ITS | Encounter Summary ---
Author Organization [employer] Address [address] [place] [address] Care Team Providers Care Director Systems Name Role Phone Marleni Whyte Primary Care Provider [phone] Joe Garcia PharmD Unavailable [phone] Reason for Visit * Reason Comments Med Refill Encounter Details Date Type Department Care Team ([facility] st Contact Info) Description 06/22/[address] [facility] [address] [place], [place] [phone] Marleni Whyte ANP [address] [place] [address] Primary osteoarthritis of right knee Social History [...] Description 10/19/2024 3:00 PM EDT Office Visit [address] [address] Marleni Whyte ANP [address] [place] [address] 11/08/2024 9:45 AM EDT Office Visit [address] [address] documented as of this encounter Visit Diagnoses Diagnosis Primary osteoarthritis of right knee documented in this encounter Additional Health Concerns Assessment Noted Time PHQ-9 Depression Total Score: 0 08/20/19 23 2:04 PM EST documented as of this encounter Care Teams Director Systems Relationship Specialty Start Date End Date Marleni Whyte ANP [address] [place] [phone] PCP - General Family Medicine 06/23/22 Joe Garcia, ErickD [address] [place] [phone] Pharmacist Internal Medicine 07/04/24 Elmer Lisa Service Desk AssociateManagement Trainee 10/09/23 documented as of this encounter
--- OUTSIDE RECORDS SUMMARY | 2024-10-06 17:43 | XMS_ITS | Encounter Summary ---
Author Organization [employer] Address [address] [place] [address] Care Team Providers Care Biochemistry Technician Name Role Phone Marleni Whyte Primary Care Provider [phone] Joe Garcia PharmD Unavailable [phone] Reason for Visit * Reason Onset Date Comments Med Refill 05/29/2023 Encounter Details Date Type Department Care Team ([facility] st Contact Info) Description 05/29/2023 Telephone [facility] [address] [place], [place] [phone] Marleni Whyte ANP [address] [place], [place] [phone] Med Refill Social History Tobacco Use Types [...] encounter Miscellaneous Notes * Telephone Encounter - Julieta Forte - 06/02/2023 4:21 PM EDT Tc from pt requesting status on med refill, pt stated is out of stock. * Telephone Encounter - Félix Birch - 05/29/2023 3:57 PM EDT Tc from patient requesting medication refill for oxyCODONE (Roxicodone) 5 MG immediate release tablet. documented in this encounter Plan of Treatment Upcoming Encounters Date Type Department Care Team (Late st Contact Info) Description 10/19/2024 3:00 PM EDT Office Visit [facility] [address] [place] [phone] Marleni Whyte ANP [address] [place] [address] 11/08/2024 9:45 AM EDT Office Visit [address] [address] documented as of this encounter Visit Diagnoses Not on filedocumented in this encounter Additional Health Concerns Assessment Noted Time PHQ-9 Depression Total Score: 0 08/20/19 23 2:04 PM EST documented as of this encounter Care Teams Biochemistry Technician Relationship Specialty Start Date End Date Marleni Whyte ANP [address] [place] [phone] PCP - General Family Medicine 06/23/22 Joe Garcia, ErickD [address] [place] [address] Pharmacist Internal Medicine 07/04/24 Elmer Lisa Bottom CagerSoftware Sales Manager 10/09/23 documented as of this encounter
--- OUTSIDE RECORDS SUMMARY | 2024-10-06 17:43 | XMS_ITS | Encounter Summary ---
Author Organization [employer] Address [address] [place] [address] Care Team Providers Care Congressional Aide Name Role Phone Marleni Whyte Primary Care Provider [phone] Joe Garcia PharmD Unavailable [phone] Encounter Details Date Type Department Care Team ([facility] Contact Info) Description 09/14/2024 Telephone [facility] [address] [place], [place] [phone] Rosalina Haji, RN [address] [place] [address] Social History Tobacco Use Types Packs/Day Years [...] encounter Miscellaneous Notes * Telephone Encounter - Roxie Zee RN - 09/14/2024 2:18 PM EST Pt walked into green team lobby requesting oxycodone refill. Reports that he runs out 09/16 * Telephone Encounter - Rosalina Haji RN - 09/14/2024 11:56 AM EST TC to pt. FURNACE REPAIR MECHANIC DASIA scheerinled for 10/06/24 @ 9:30am. documented in this encounter Plan of Treatment Upcoming Encounters Date Type Department Care Team (Late st Contact Info) Description 10/19/2024 3:00 PM EDT Office Visit [facility] [address] [place] [phone] Marleni Whyte ANP [address] [place] [address] 11/08/2024 9:45 AM EDT Office Visit [facility] [address] [place] [phone] documented as of this encounter Visit Diagnoses Not on filedocumented in this encounter Additional Health Concerns Assessment Noted Time PHQ-9 Depression Total Score: 25 024 11:06 AM EST documented as of this encounter Care Teams Congressional Aide Relationship Specialty Start Date End Date Marleni Whyte ANP [address] [place] [address] PCP - General Family Medicine 06/23/22 Joe Garcia PharmD [address] [facility] [place] [address] Pharmacist Internal Medicine 07/04/24 Elmer Lisa Temple Meat CutterApplication Integration Architect 10/09/23 documented as of this encounter
--- OUTSIDE RECORDS SUMMARY | 2024-10-06 17:43 | XMS_ITS | Encounter Summary ---
Author Organization [employer] Address 75 [facility] 7t [place] [address] Care Team Providers Care Cupola Operator Name Role Phone Marleni Whyte Primary Care Provider [phone] Joe Garcia PharmD Unavailable [phone] Reason for Visit * Reason Onset Date Comments BP Kit 09/14/2024 Encounter Details Date Type Department Care Team ([facility] st Contact Info) Description 09/14/2024 Telephone [facility] [address] [place], [place] [phone] Marleni Whyte ANP [address] [place], [place] [phone] BP Kit Social History Tobacco Use Types Packs/Day Years [...] as of this encounter Miscellaneous Notes * Addendum Note - Roxie Zee RN - 09/14/2024 2:19 PM ESTAddended by: ROXIE ZEE on: 09/14/2024 02:19 PM Modules accepted: Orders * Telephone Encounter - Roxie Zee RN - 09/14/2024 2:18 PM EST Script sent * Telephone Encounter - Ktahleen Mckeon - 09/14/2024 2:07 PM EST Patient requesting BP kit for home. Patient says BP has been uncontrolled, wants to monitor at home. documented in this encounter Plan of Treatment Upcoming Encounters Date Type Department Care Team (Late st Contact Info) Description 10/19/2024 3:00 PM EDT Office Visit [facility] [address] [place] [address] [phone] Marleni Whyte ANP [address] [place] [address] 11/08/2024 9:45 AM EDT Office Visit [facility] [address] [place] [address] [phone] documented as of this encounter Visit Diagnoses Not on filedocumented in this encounter Additional Health Concerns Assessment Noted Time PHQ-9 Depression Total Score: 25 024 11:06 AM EST documented as of this encounter Care Teams Cupola Operator Relationship Specialty Start Date End Date Marleni Whyte ANP [address] [place] [address] PCP - General Family Medicine 06/23/22 Joe Garcia, ErickD [address] [place] [address] Pharmacist Internal Medicine 07/04/24 Elmer Lisa Supervisor SandingIce Grinder 10/09/23 documented as of this encounter
--- OUTSIDE RECORDS SUMMARY | 2024-10-06 17:43 | XMS_ITS | Encounter Summary ---
Author Organization [employer] Address [address] [facility] [address] 7t [place] [address] Care Team Providers Care Public Message Service Supervisor Name Role Phone Marleni Whyte ANP Primary Care Provider [phone] Joe Garcia PharmD Unavailable Reason for Visit * Reason Comments Med Refill Encounter Details Date Type Department Care Team ([facility] st Contact Info) Description 06/02/2023 Refill [facility] CHC MED & PEDS [address] [place], [place] [phone] Marleni Whyte ANP 230 [place] [address] Other chronic pain Social History Tobacco Use [...] Description 10/19/2024 3:00 PM EDT Office Visit [address] [address] Marleni Whyte ANP [address] [place] [address] 11/08/2024 9:45 AM EDT Office Visit [address] [address] documented as of this encounter Visit Diagnoses Diagnosis Other chronic pain documented in this encounter Additional Health Concerns Assessment Noted Time PHQ-9 Depression Total Score: 0 08/20/19 23 2:04 PM EST documented as of this encounter Care Teams Public Message Service Supervisor Relationship Specialty Start Date End Date Marleni Whyte ANP [address] [place] [address] PCP - General Family Medicine 06/23/22 Joe Garcia, ErickD [address] [place] [address] Pharmacist Internal Medicine 07/04/24 Elmer Lisa Product Manager Financial ServicesCareer Technical Education Teacher 10/09/23 documented as of this encounter
--- OUTSIDE RECORDS SUMMARY | 2024-10-06 17:43 | XMS_ITS | Encounter Summary ---
Author Organization [employer] [facility] Address 75 [facility] 7t [place] [address] Care Team Providers Care Jewish Thought Professor Name Role Phone Marleni Whyte Primary Care Provider [phone] Joe Garcia PharmD Unavailable [phone] Reason for Visit * Reason Onset Date Comments Med Refill 04/01/2023 Encounter Details Date Type Department Care Team ([facility] st Contact Info) Description 04/01/2023 Telephone [facility] 230 [place], [place] [phone] Marleni Whyte ANP 230 [place], [place] [phone] Med Refill Social History Tobacco Use Types Packs/Day Years Used Date Smoking Tobacco: Never Passive Smoke Exposure: Never Smokeless Tobacco: Never Alcohol Use Standard Drinks/Week Comments Not Currently 0 (1 standard drink = 0.6 oz pur e alcohol) Depression Answer Date Recorded Patient Health Questionnaire-9 Score 0 08/20/2022 Depression Answer Date Recorded Patient Health Questionnaire-2 Score 0 08/20/2022 Sex and Gender Information Value Date Recorded Sex Assigned at Male 06/02/2022 10:30 AM EDT Legal Sex Male 10:30 AM EDT Gender Identity Male 06/02/2022 10:30 AM EDT Sexual Orientation Straight 06/02/2022 10 :30 AM EDT documented as of this encounter Miscellaneous Notes * Telephone Encounter - Shireen Mcdonald - 04/01/2023 10:55 AM EDT Tc from pt requesting medication refill on oxyCODONE (Roxicodone) 5 MG immediate release tablet documented in this encounter Plan of Treatment Upcoming Encounters Date Type Department Care Team (Late st Contact Info) Description 10/19/2024 3:00 PM EDT Office Visit [address] [address] Marleni Whyte ANP [address] [place] [address] 11/08/2024 9:45 AM EDT Office Visit [facility] [address] [place] [address] documented as of this encounter Visit Diagnoses Not on filedocumented in this encounter Additional Health Concerns Assessment Noted Time PHQ-9 Depression Total Score: 0 08/20/19 23 2:04 PM EST documented as of this encounter Care Teams Jewish Thought Professor Relationship Specialty Start Date End Date Marleni Whyte ANP [address] [place] [address] PCP - General Family Medicine 06/23/22 Joe Garcia, PharmD [address] [place] [address] Pharmacist Internal Medicine 07/04/24 Elmer Lisa Wrapper SorterCylinder Block Mechanic 10/09/23 documented as of this encounter
--- OUTSIDE RECORDS SUMMARY | 2024-10-06 17:44 | XMS_ITS | Encounter Summary ---
Author Organization [employer] Address [address] [facility] [address] 7t [place] [address] Care Team Providers Care Television News Reporter Name Role Phone Marleni Whyte ANP Primary Care Provider [phone] Joe Garcia PharmD Unavailable [phone] Reason for Visit * Reason Comments Med Refill Encounter Details Date Type Department Care Team ([facility] st Contact Info) Description 09/15/2024 Refill [facility] CHC MED & PEDS [address] [place], [place] [phone] Marleni Whyte ANP 230 [place] [address] Acute pain of both knees Social History Tobacco Use Types Packs/Day Years [...] is your housing situation today? I have daydya may 09/08/[address] you [...] Description 10/19/2024 3:00 PM EDT Office Visit [address] [address] Marleni Whyte ANP [address] [place] [address] 11/08/2024 9:45 AM EDT Office Visit [address] [address] documented as of this encounter Visit Diagnoses Diagnosis Acute pain of both knees documented in this encounter Additional Health Concerns Assessment Noted Time PHQ-9 Depression Total Score: 25 024 11:06 AM EST documented as of this encounter Care Teams Television News Reporter Relationship Specialty Start Date End Date Marleni Whyte ANP [address] [place] [address] PCP - General Family Medicine 06/23/22 Joe Garcia, ErickD [address] [place] [address] Pharmacist Internal Medicine 07/04/24 Elmer Lisa Advertising TeacherTelecommunication Equipment Repairer 10/09/23 documented as of this encounter
--- OUTSIDE RECORDS SUMMARY | 2024-10-06 17:44 | XMS_ITS | Encounter Summary ---
Author Organization [facility] Address 75 [facility] 7t [place] [address] Care Team Providers Care Zoo Keeper Name Role Phone Marleni Whyte Primary Care Provider [phone] Joe Garcia PharmD Unavailable [phone] Reason for Visit * Reason Comments Med Refill Encounter Details Date Type Department Care Team ([facility] Contact Info) Description 10/06/2022 Refill [facility]INE 230 [place], [place] [phone] Marleni Whyte ANP 230 [place], [place] [phone] Other chronic pain Social History Tobacco Use [...] Orientation Straight 06/02/2022 10 :30 AM EDT COVID-19 Exposure Response Date Recorded In the last 10 days, have yo u been in contact with someone who was confirmed or suspected to have Coronavirus/COVID-19? No / Unsure 10/07/2022 9:53 AM EST documented as of this encounter Plan of Treatment Upcoming Encounters Date Type Department Care Team (Late st Contact Info) Description 10/19/2024 3:00 PM EDT Office Visit [address] [address] Marleni [place] [address] 11/08/2024 9:45 AM EDT Office Visit [address] [address] documented as of this encounter Visit Diagnoses Diagnosis Other chronic pain documented in this encounter Additional Health Concerns Assessment Noted Time PHQ-9 Depression Total Score: 0 08/20/19 23 2:04 PM EST documented as of this encounter Care Teams Zoo Keeper Relationship Specialty Start Date End Date [place] [address] PCP - General Family Medicine 06/23/22 Joe Garcia, ErickD [address] [place] [address] Pharmacist Internal Medicine 07/04/24 Elmer Lisa Traffic CheckerMotorcycle Builder 10/09/23 documented as of this encounter
--- OUTSIDE RECORDS SUMMARY | 2024-10-06 17:44 | XMS_ITS | Encounter Summary ---
Author Organization [employer] Address 75 [facility] 7t [place] [address] Care Team Providers Care Pumper Gager Name Role Phone Whyte Marleni SALINAS Primary Care Provider [phone] Joe Garcia PharmD Unavailable [phone] Reason for Visit * Reason Comments controlled substance treatment Encounter Details Date Type Department Care Team (Latest Contact Info) Description 10/06/2024 9:30 AM EST Clinical Support [facility] MED & PEDS 505 [place] [address] Rosalina Haji, RN 505 [place] [address] Long-term current use of opiate analgesic Social History Tobacco Use Types Packs/Day Years [...] AM EDT documented as of this encounter Progress Notes * Rosalina Haji RN - 10/06/2024 9:30 AM EST S: Patient here for DIVERSIONAL THERAPIST'S ASSISTANT Visit. Current rx Oxycodone 5 mg q 6 hrs prn for chronic back pain. States has been taking as prescribed, PRN only. Reports no adverse reactions. Current pain level 10/10 located all over the body. Pt states he tries not let the pain affect his life. Patient denies cigarettes, denies ETOH or illicit drug use. Last PCP appt 07/14/24, next f/u 10/19/24. Utox pos NICKY again, patient continues to deny cocaine use. PCP aware of nicky use, will notify PCP again. O: Tier 4. TRAWL NET MAKER verified. Rx last filled on 09/30/24. Pill count performed. Pt has 33 pills at this time, 29 expected. Medication is not overused by patient. UTOX urine results: Positive for NICKY again (pos on every DIVERSIONAL THERAPIST'S ASSISTANT visit, PCP aware). Patient still denies any cocaine use. OXY neg. Will notify PCP.Utox NOT as expected. Sending it out to the lab for OXY, NICKY confirmation. A: DIVERSIONAL THERAPIST'S ASSISTANT Visit; Chronic opioid use related to pain. P: Patient to continue taking medication only as prescribed; Next DIVERSIONAL THERAPIST'S ASSISTANT/ chronic pain group appointment scheduled for 11/08/24 at 9:30am. Reminder slip given. f/u sooner PRN. Patient verbalized understanding and agreed to plan. documented in this encounter Plan of Treatment Upcoming Encounters Date Type Department Care Team (Late st Contact Info) Description 10/19/2024 3:00 PM EDT Office Visit [address] [address] Marleni Whyte ANP [address] [place] [address] 11/08/2024 9:45 AM EDT Office Visit [address] [address] Scheduled Orders Name Type Priority Associated Diagnoses Orde r Schedule Drug Monitoring, Cocaine Metabolite, Quantitative, Urine Lab Routine Long-term current use of opiate analgesic Ordered: 10/06/2024 Oxycodone Screen, Urine Lab Routine Long-term current use of opiate analgesic Ordered: 10/06/2024 documented as of this encounter Procedures Procedure Name Priority Date/Time Associated Diagnosis Comments POCT ISRAEL-14 URINE DRUG SCREEN Routine 10/06/2024 9:47 AM EST Long-term current use of opiate analgesic documented in this encounter Results * (ABNORMAL) POCT ISRAEL-14 Urine Drug Screen (10/06/2024 9:47 AM EST) Cocaine Screen, Urine Positive Urine Urine specimen obtained by clean catch procedure / Unknown 10/06/2024 9:47 AM EST Marleni SALINAS POINT OF CARE TEST ENTER/EDIT OR DERABLES Final Result documented in this encounter Visit Diagnoses Diagnosis Long-term current use of opiate analgesic Encounter for long-term (current) use of other medications documented in this encounter Additional Health Concerns Assessment Noted Time PHQ-9 Depression Total Score: 25 024 11:06 AM EST documented as of this encounter Care Teams Pumper Gager Relationship Specialty Start Date End Date Marleni Whyte ANP [address] [place] [address] PCP - General Family Medicine 06/23/22 Joe Garcia, PharmD [address] [place] [address] Pharmacist Internal Medicine 07/04/24 Elmer Lisa Podiatric AideBeauty Advisor 10/09/23 documented as of this encounter
--- OUTSIDE RECORDS SUMMARY | 2024-10-06 17:44 | XMS_ITS | Encounter Summary ---
Author Organization [employer] [facility] Address 75 [facility] 7t [place] [address] Care Team Providers Care Clinical Social Work Therapist Name Role Phone Marleni Whyte Primary Care Provider [phone] Joe Garcia PharmD Unavailable [phone] Reason for Visit * Reason Comments Med Refill Encounter Details Date Type Department Care Team ([facility] Contact Info) Description 11/06/2022 Refill [facility] MEDICINE 230 [place], [place] [phone] Marleni Whyte ANP 230 [place], [place] [phone] Other chronic pain Social History Tobacco Use [...] suspected to have Coronavirus/COVID-19? No / Unsure 10/27/2022 2:51 PM EDT documented as of this encounter Plan of Treatment Upcoming Encounters Date Type Department Care Team (Late Contact Info) Description 10/19/2024 3:00 PM EDT Office Visit [facility] [place] [address] Marlen[place] [address] 11/08/2024 9:45 AM EDT Office Visit [facility] [place] [address] documented as of this encounter Visit Diagnoses Diagnosis Other chronic pain documented in this encounter Additional Health Concerns Assessment Noted Time PHQ-9 Depression Total Score: 0 08/20/19 23 2:04 PM EST documented as of this encounter Care Teams Clinical Social Work Therapist Relationship Specialty Start Date End Date [place] [address] PCP - General Family Medicine 06/23/22 Joe Garcia, ErickD [address] [place] [address] Pharmacist Internal Medicine 07/04/24 Elmer Lisa Licensed PsychologistHighway Research Engineer 10/09/23 documented as of this encounter
--- OUTSIDE RECORDS SUMMARY | 2024-10-06 17:44 | XMS_ITS | Encounter Summary ---
Author Organization [employer] Address [address] [facility] [address] 7t [place] [address] Care Team Providers Care Hospice Clinical Manager Name Role Phone Marleni Whyte Primary Care Provider [phone] Joe Garcia PharmD Unavailable [phone] Reason for Visit * Reason Onset Date Comments Med Refill 09/14/2024 Encounter Details Date Type Department Care Team ([facility] st Contact Info) Description 09/14/2024 Refill [facility] CHC MED & PEDS 505 [place] [address] Rosalina Haji, LUIS 505 [place] [address] Primary osteoarthritis of right knee Social History [...] Description 10/19/2024 3:00 PM EDT Office Visit [address] [address] Marleni Whyte ANP [address] [place] [address] 11/08/2024 9:45 AM EDT Office Visit [address] [address] documented as of this encounter Visit Diagnoses Diagnosis Primary osteoarthritis of right knee documented in this encounter Additional Health Concerns Assessment Noted Time PHQ-9 Depression Total Score: 25 024 11:06 AM EST documented as of this encounter Care Teams Hospice Clinical Manager Relationship Specialty Start Date End Date Marleni Whyte ANP [address] [place] [address] PCP - General Family Medicine 06/23/22 Joe Garcia, ErickD [address] [place] [address] Pharmacist Internal Medicine 07/04/24 Elmer Lisa Bi ConsultantRhinestone Setter 10/09/23 documented as of this encounter
--- OUTSIDE RECORDS SUMMARY | 2024-10-06 17:44 | XMS_ITS | Encounter Summary ---
Author Organization [employer] Address [address] [facility] [address] 7t [place] [address] Care Team Providers Care Supervisor Brake Repair Name Role Phone Marleni Whyte Primary Care Provider [phone] Joe Garcia PharmD Unavailable [phone] Encounter Details Date Type Department Care Team ([facility] Contact Info) Description 09/13/[address] [facility] CHC MED & PEDS 505 [place], [place] [phone] Rosalina Haji, RN 505 [place] [address] Social History Tobacco Use Types Packs/Day Years [...] encounter Miscellaneous Notes * Telephone Encounter - BRAD Westfall - 09/13/2024 4:07 PM EST Can you reschedule pill count with this pt? I can discuss butrans with him at follow-up if it makessense. thanks * Telephone Encounter - Rosalina Haji RN - 09/13/2024 1:50 PM EST Pt came to chronic pain group visit today. Did not stay for the group as he stated he is feeling ill. Utox performed, pos for MANUEL again. Did not bring Oxycodone for pill count as he stated he forgot.F/u with you 10/19/24. Is the plan still to consider butrans or suboxone? Please advise. documented in this encounter Plan of Treatment Upcoming Encounters Date Type Department Care Team (Late st Contact Info) Description 10/19/2024 3:00 PM EDT Office Visit [facility] MEDICINE [address] [place] [address] Marleni Whyte ANP 230 [place] [address] 11/08/2024 9:45 AM EDT Office Visit [facility] MEDICINE [address] [place] [address] documented as of this encounter Visit Diagnoses Not on filedocumented in this encounter Additional Health Concerns Assessment Noted Time PHQ-9 Depression Total Score: 25 024 11:06 AM EST documented as of this encounter Care Teams Supervisor Brake Repair Relationship Specialty Start Date End Date Marleni Whyte ANP 230 [place] [address] PCP - General Family Medicine 06/23/22 Joe Garcia, Adelaida [address] [place] [address] Pharmacist Internal Medicine 07/04/24 Elmer Lisa Wood Fuel PelletizerFrontend Engineer 10/09/23 documented as of this encounter
--- OUTSIDE RECORDS SUMMARY | 2024-10-06 17:44 | XMS_ITS | Encounter Summary ---
Author Organization [employer] Address 75 [facility] 7t [place] [address] Care Team Providers Care District Medical Examiner Name Role Phone Whyte Marleni SALINAS Primary Care Provider [phone] Joe Garcia PharmD Unavailable [phone] Encounter Details Date Type Department Care Team (Latest Contact Info) Description 09/14/2024 Travel Social History Tobacco Use Types Packs/Day Years [...] Description 10/19/2024 3:00 PM EDT Office Visit [address] [address] Marleni Whyte ANP [address] [place] [address] 11/08/2024 9:45 AM EDT Office Visit [address] [address] documented as of this encounter Visit Diagnoses Not on filedocumented in this encounter Additional Health Concerns Assessment Noted Time PHQ-9 Depression Total Score: 25 024 11:06 AM EST documented as of this encounter Care Teams District Medical Examiner Relationship Specialty Start Date End Date Marleni Whyte ANP [address] [place] [address] PCP - General Family Medicine 06/23/22 Joe Garcia, Adelaida [address] [place] [address] Pharmacist Internal Medicine 07/04/24 Elmer Lisa Security Systems EngineerEnvelope Sealer Operator 10/09/23 documented as of this encounter
--- OUTSIDE RECORDS SUMMARY | 2024-10-06 17:44 | XMS_ITS | Encounter Summary ---
Author Organization [employer] Address [address] [facility] [address] 7t [place] [address] Care Team Providers Care Online Marketing Specialist Name Role Phone Marleni Whyte ANP Primary Care Provider [phone] Joe Garcia PharmD Unavailable [phone] Reason for Visit * Reason Comments Med Refill Encounter Details Date Type Department Care Team ([facility] st Contact Info) Description 07/21/2024 Refill [facility] CHC MED & PEDS [address] [place], [place] [phone] Marleni Whyte ANP 230 [place] [address] Primary osteoarthritis of right knee Social History [...] Miscellaneous Notes * Telephone Encounter - Rosalina Haji RN - 07/26/2024 11:26 AM EST Pt here for TABLEAU ANALYST NV. Utox Pos for MANUEL again (pos on 05/20, 05/04 and 01/29/24 that was confirmed by lab). Pt still denies any cocaine use. Next TABLEAU ANALYST/ chronic pain group appt scheduled for 08/30/24 at 9:30am. Please advise. documented in this encounter Plan of Treatment Upcoming Encounters Date Type Department Care Team (Late st Contact Info) Description 10/19/2024 3:00 PM EDT Office Visit [facility] MEDICINE [address] [place] [address] Marleni Whyte ANP [address] [place] [address] 11/08/2024 9:45 AM EDT Office Visit [address] [address] documented as of this encounter Visit Diagnoses Diagnosis Primary osteoarthritis of right knee documented in this encounter Additional Health Concerns Assessment Noted Time PHQ-9 Depression Total Score: 25 024 11:06 AM EST documented as of this encounter Care Teams Online Marketing Specialist Relationship Specialty Start Date End Date Marleni Whyte ANP [address] [place] [address], [place] [address] PCP - General Family Medicine 06/23/22 Joe Garcia, ErickD [address] [place] [address] Pharmacist Internal Medicine 07/04/24 Elmer Lisa PsychiatristMaintenance Mgr 10/09/23 documented as of this encounter
--- OUTSIDE RECORDS SUMMARY | 2024-10-06 17:44 | XMS_ITS | Encounter Summary ---
Author Organization [employer] Address [address] [facility] [address] 7t [place] [address] Care Team Providers Care Sales And Marketing Professional Name Role Phone Marleni Whyte ANP Primary Care Provider [phone] Joe Garcia PharmD Unavailable [phone] Reason for Visit * Reason Comments Med Refill Encounter Details Date Type Department Care Team ([facility] st Contact Info) Description 09/29/2024 Refill [facility] CHC MED & PEDS [address] [place], [place] [phone] Marleni Whyte ANP 230 [place] [address] Primary osteoarthritis of right knee Social History [...] 10/19/2024 3:00 PM EDT Office Visit [address] [address] Marleni Whyte ANP [address] [place] [address] 11/08/2024 9:45 AM EDT Office Visit [address] [address] documented as of this encounter Visit Diagnoses Diagnosis Primary osteoarthritis of right knee documented in this encounter Additional Health Concerns Assessment Noted Time PHQ-9 Depression Total Score: 25 024 11:06 AM EST documented as of this encounter Care Teams Sales And Marketing Professional Relationship Specialty Start Date End Date Marleni Whyte ANP [address] [place] [address] PCP - General Family Medicine 06/23/22 Joe Garcia, ErickD [address] [place] [address] Pharmacist Internal Medicine 07/04/24 Elmer Lisa It Operations AnalystMotor Vehicle Operator Road Supervisor 10/09/23 documented as of this encounter
--- OUTSIDE RECORDS SUMMARY | 2024-10-06 17:44 | XMS_ITS | Encounter Summary ---
Author Organization [employer] Address [address] [place] [address] Care Team Providers Care Bale Tie Machine Operator Name Role Phone Isabell Marleni SALINAS Primary Care Provider [phone] Joe Garcia PharmD Unavailable [phone] Encounter Details Date Type Department Care Team (Latest Contact Info) Description 09/13/2024 9:30 AM EST Clinical Support [facility] [address] [place] [address] Tanya Cope RN Chronic bilateral low back pain, unspecified whether sciatica present (Primary Dx) Social History Tobacco Use Types Packs/Day Years [...] as of this encounter Progress Notes * Tanya Cope RN - 09/13/2024 9:30 AM EST Pt came to chronic pain group and stated he felt ill and could not stay. He stated he has a fever, body aches and said he was seen at [facility] for this. When asked if he brought his oxycodone medication today he stated he forgot his medication. Requested he complete urine for UTOX. UTOX completed. Positive for MANUEL, Negative for AMP, BAR, BUP, BZO, FTY, MDMA, MET, MOP, MTD, OXY, PCP, TCA, THC. UTOX not as expected. Canelo SMITH RN to follow up with patient and PCP. documented in this encounter Plan of Treatment Upcoming Encounters Date Type Department Care Team (Late st Contact Info) Description 10/19/2024 3:00 PM EDT Office Visit [facility] [address] [place] [phone] Marleni Whyte ANP [address] [place] [phone] 11/08/2024 9:45 AM EDT Office Visit [address] [address] documented as of this encounter Procedures Procedure Name Priority Date/Time Associated Diagnosis Comments POCT ISRAEL-14 URINE DRUG SCREEN Routine 09/13/2024 1:35 PM EST Chronic bilateral low back pain, unspecified whether sciatica present documented in this encounter Results * (ABNORMAL) POCT ISRAEL-14 Urine Drug Screen (09/13/2024 1:35 PM EST) Cocaine Screen, Urine Positive Oxycodone Screen, Urine Negative Urine Urine specimen obtained by clean catch procedure / Unknown 09/13/2024 1:35 PM EST Tanya Xiong RN - 09/13/2024 1:35 PM EST UTOX cup Lot#[id number] Exp. 04/27/26 Internal Pass Control Marleni SALINAS POINT OF CARE TEST ENTER/EDIT OR DERABLES Final Result documented in this encounter Visit Diagnoses Diagnosis Chronic bilateral low back pain, unspecified whether sciatica present- Primary documented in this encounter Additional Health Concerns Assessment Noted Time PHQ-9 Depression Total Score: 25 024 11:06 AM EST documented as of this encounter Care Teams Bale Tie Machine Operator Relationship Specialty Start Date End Date Marleni Whyte, ANP [address] [place] [address] PCP - General Family Medicine 06/23/22 Joe Garcia, ErickD [address] [place] [address] Pharmacist Internal Medicine 07/04/24 Elmer Lisa Operations ArchitectOcc Med Physician 10/09/23 documented as of this encounter
--- OUTSIDE RECORDS SUMMARY | 2024-10-06 17:44 | XMS_ITS | Encounter Summary ---
Author Organization [employer] Address [address] [place] [address] Care Team Providers Care Environmental Issues Instructor Name Role Phone Marleni Whyte Primary Care Provider Joe Garcia PharmD Unavailable [phone] Encounter Details Date Type Department Care Team (Late st Contact Info) Description 10/06/2024 Orders Only [facility] MEDICINE [address] [place], [place] [phone] Marleni Whyte ANP [address] [place], [place] [phone] Social History Tobacco Use Types Packs/Day Years [...] Description 10/19/2024 3:00 PM EDT Office Visit [facility] MED[facility]INE [address] [place] [phone] Marleni Whyte ANP [address] [place] [phone] 11/08/2024 9:45 AM EDT Office Visit [address] [address] documented as of this encounter Procedures Procedure Name Priority Date/Time Associated Diagnosis Comments OXYCODONE SCREEN, URINE Routine 10/06/2024 9:50 AM EST COCAINE SCREEN, URINE Routine 10/06/2024 9:50 AM EST documented in this encounter Results * Oxycodone Screen, Urine (10/06/2024 9:50 AM EST) Oxycodone Urine Screen Not Detected Not Detect ng/mL [facility] Comment:Oxycodone cut-off is 100 ng/mL.Positive results are unconfirmed and should not be used fornon-medical purposes. 10/06/2024 9:50 AM EST 10/06/2024 2:26 PM EST Marleni Whyte ANP LAB URINE ORDERABLES Final Resul t [facility] [address] [place] [address] [phone] * (ABNORMAL) Cocaine Screen, Urine (10/06/2024 9:50 AM EST) Cocaine Screen Urine POSITIVE( A) Not Detect [facility] Comment:Cocaine cut-off is 3 00 ng/mL.Positive results are unconfirmed and should not be used fornon-medical purposes. 10/06/2024 9:50 AM EST 10/06/2024 2:26 PM EST Marleni SALINAS LAB URINE ORDERABLES Final Resul t Performing Organization Address [facility] Co de Phone Number [facility] [address] [place] [phone] documented in this encounter Visit Diagnoses Not on filedocumented in this encounter Additional Health Concerns Assessment Noted Time PHQ-9 Depression Total Score: 25 024 11:06 AM EST documented as of this encounter Care Teams Environmental Issues Instructor Relationship Specialty Start Date End Date Marleni Whyte ANP [address] [place] [address] PCP - General Family Medicine 06/23/22 Joe Garcia, ErickD [address] [place] [address] Pharmacist Internal Medicine 07/04/24 Elmer Lisa Chipper OperatorMill Operator 10/09/23 documented as of this encounter
--- OUTSIDE RECORDS SUMMARY | 2024-10-06 17:44 | XMS_ITS | Encounter Summary ---
Author Organization [employer] Address [address] [facility] 7t [place] [address] Care Team Providers Care Concrete Wall Grinder Operator Name Role Phone Marleni Whyte Primary Care Provider [phone] Joe Garcia PharmD Unavailable [phone] Reason for Visit * Reason Comments Med Refill Encounter Details Date Type Department Care Team ([facility] st Contact Info) Description 09/30/2024 Refill [facility] [address] [place], [place] [phone] Marleni Whyte ANP [address] [place], [place] [phone] Opiate analgesic use agreement exists; Long-term current use of opiate analgesic Social [...] Description 10/19/2024 3:00 PM EDT Office Visit [address] [address] Marleni Whyte ANP [address] [place] [phone] 11/08/2024 9:45 AM EDT Office Visit [address] [address] documented as of this encounter Visit Diagnoses Diagnosis Opiate analgesic use agreement exists Long-term current use of opiate analgesic Encounter for long-term (current) use of other medications documented in this encounter Additional Health Concerns Assessment Noted Time PHQ-9 Depression Total Score: 25 024 11:06 AM EST documented as of this encounter Care Teams Concrete Wall Grinder Operator Relationship Specialty Start Date End Date Marleni Whyte ANP [address] [place] [phone] PCP - General Family Medicine 06/23/22 Joe Garcia, ErickD [address] [place] [phone] Pharmacist Internal Medicine 07/04/24 Elmer Lisa Mortgage Loan CoordinatorApplications Development Consultant 10/09/23 documented as of this encounter
--- OUTSIDE RECORDS SUMMARY | 2024-10-06 17:44 | XMS_ITS | Encounter Summary ---
Author Organization [employer] Address [address] [facility] [address] [place] [address] Care Team Providers Care Apprentice Carpenter Name Role Phone Whyte Marleni SALINAS Primary Care Provider Joe Garcia PharmD Unavailable [phone] Encounter Details Date Type Department Care Team (Latest Contact Info) Description 09/13/2024 Travel Social History Tobacco Use Types Packs/Day [...] Description 10/19/2024 3:00 PM EDT Office Visit [address] [address] Marleni Whyte ANP [address] [place] [address] 11/08/2024 9:45 AM EDT Office Visit [address] [address] documented as of this encounter Visit Diagnoses Not on filedocumented in this encounter Additional Health Concerns Assessment Noted Time PHQ-9 Depression Total Score: 25 024 11:06 AM EST documented as of this encounter Care Teams Apprentice Carpenter Relationship Specialty Start Date End Date Marleni Whyte ANP [address] [place] [phone] PCP - General Family Medicine 06/23/22 Joe Garcia, Adelaida [address] [place] [phone] Pharmacist Internal Medicine 07/04/24 Elmer Lisa Legal Support AnalystAutomobile Salesman 10/09/23 documented as of this encounter
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
--- OUTSIDE RECORDS SUMMARY | 2024-10-06 17:44 | XMS_ITS | Encounter Summary ---
Author Organization [employer] Address [address] [facility] [address] [place] [address] Care Team Providers Care Zinc Plater Name Role Phone Whyte Marleni SALINAS Primary Care Provider [phone] Joe Garcia PharmD Unavailable [phone] Encounter Details Date Type Department Care Team (Latest Contact Info) Description 10/06/2024 Travel Social History Tobacco Use Types Packs/Day [...] Description 10/19/2024 3:00 PM EDT Office Visit [address] [address] Marleni Whyte ANP [address] [place] [phone] 11/08/2024 9:45 AM EDT Office Visit [address] [phone] documented as of this encounter Visit Diagnoses Not on filedocumented in this encounter Additional Health Concerns Assessment Noted Time PHQ-9 Depression Total Score: 25 024 11:06 AM EST documented as of this encounter Care Teams Zinc Plater Relationship Specialty Start Date End Date Marleni Whyte ANP [address] [place] [phone] PCP - General Family Medicine 06/23/22 Joe Garcia, Adelaida [address] [place] [phone] Pharmacist Internal Medicine 07/04/24 Elmer Lisa Model Maker FirearmsCigarette Making Machine Hopper Feeder 10/09/23 documented as of this encounter
--- OUTSIDE RECORDS SUMMARY | 2024-10-06 17:44 | XMS_ITS | Encounter Summary ---
Author Organization [employer] [facility] Address [address] 7[address] [place] [address] Care Team Providers Care Shear Helper Name Role Phone Marleni Whyte Primary Care Provider [phone] Joe Garcia PharmD Unavailable [phone] Reason for Visit * Reason Comments Med Refill Encounter Details Date Type Department Care Team ([facility] Contact Info) Description 11/06/2022 Refill [facility] MEDICINE [address] [place], [place] [phone] Marleni Whyte ANP [address] [place], [place] [phone] Other chronic pain Social History Tobacco Use [...] Description 10/19/2024 3:00 PM EDT Office Visit [place] [address] [place] [address] 11/08/2024 9:45 AM EDT Office Visit [place] [address] documented as of this encounter Visit Diagnoses Diagnosis Other chronic pain documented in this encounter Additional Health Concerns Assessment Noted Time PHQ-9 Depression Total Score: 0 08/20/19 23 2:04 PM EST documented as of this encounter Care Teams Shear Helper Relationship Specialty Start Date End Date [place] [address] PCP - General Family Medicine 06/23/22 Joe Garcia, ErickD [address] [place] [address] Pharmacist Internal Medicine 07/04/24 Elmer Lisa Fruit LoaderPublic Health Service Officer 10/09/23 documented as of this encounter
--- OUTSIDE RECORDS SUMMARY | 2024-10-06 17:44 | XMS_ITS | Encounter Summary ---
Author Organization [employer] Address [address] 7[address] [place] [address] Care Team Providers Care Rn Intensive Care Unit Name Role Phone Marleni Whyte Primary Care Provider [phone] Joe Garcia PharmD Unavailable [phone] Reason for Visit * Reason Onset Date Comments Med Refill 09/29/2024 Encounter Details Date Type Department Care Team ([facility] st Contact Info) Description 09/29/2024 Telephone [facility] MEDICINE [address] [place], [place] [phone] Marleni Whyte ANP [address] [place], [place] [phone] Med Refill Social History Tobacco Use Types [...] encounter Miscellaneous Notes * Telephone Encounter - Simona Robert - 09/29/2024 2:01 PM EST Pt walked in requesting refill on oxycodone pt knows he is due tomorrow for a refill [facility] worse and doesn't know when will return . documented in this encounter Plan of Treatment Upcoming Encounters Date Type Department Care Team (Late st Contact Info) Description 10/19/2024 3:00 PM EDT Office Visit [address] [address] Marleni Whyte ANP [address] [place] [address] 11/08/2024 9:45 AM EDT Office Visit [address] [address] documented as of this encounter Visit Diagnoses Not on filedocumented in this encounter Additional Health Concerns Assessment Noted Time PHQ-9 Depression Total Score: 25 024 11:06 AM EST documented as of this encounter Care Teams Rn Intensive Care Unit Relationship Specialty Start Date End Date Marleni Whyte ANP [address] [place] [phone] PCP - General Family Medicine 06/23/22 Joe Garcia, PharmD [address] [place] [phone] Pharmacist Internal Medicine 07/04/24 Elmer Lisa Port StewardScale Attendant 10/09/23 documented as of this encounter
--- OUTSIDE RECORDS SUMMARY | 2024-10-06 17:44 | XMS_ITS | Encounter Summary ---
Author Organization [employer] Address [address] 7[address] [place] [address] Care Team Providers Care Electric Switch Tester Name Role Phone Marleni Whyte Primary Care Provider [phone] Joe Garcia PharmD Unavailable [phone] Encounter Details Date Type Department Care Team ([facility] Contact Info) Description 10/06/2024 Telephone [facility] MED & PEDS [address] [place], [place] [phone] Rosalina Haji, RN [address] [place] [address] Social History Tobacco Use Types Packs/Day Years [...] Telephone Encounter - Rosalina Haji RN - 10/06/2024 9:51 AM EST 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 Utox pos MANUEL again. Pt continues to deny cocaine use. F/u with you 10/19/24. documented in this encounter Plan of Treatment Upcoming Encounters Date Type Department Care Team (Late st Contact Info) Description 10/19/2024 3:00 PM EDT Office Visit [facility] MEDICINE [address] [place] [phone] Marleni Whyte ANP [address] [place] [phone] 11/08/2024 9:45 AM EDT Office Visit [facility] MEDICINE [address] [place] [phone] documented as of this encounter Visit Diagnoses Not on filedocumented in this encounter Additional Health Concerns Assessment Noted Time PHQ-9 Depression Total Score: 25 024 11:06 AM EST documented as of this encounter Care Teams Electric Switch Tester Relationship Specialty Start Date End Date Marleni Whyte ANP [address] [place] [phone] PCP - General Family Medicine 06/23/22 Joe Garcia, ErickD [address] [place] [phone] Pharmacist Internal Medicine 07/04/24 Elmer Lisa Proposal ConsultantChristian Counselor 10/09/23 documented as of this encounter
== END 2024-10-06 14:25 | disposition home or self-care (01) ==
LOC: HO.HHCLNP 14:24
PROVIDERS: Visit Provider Nurse Practitioner Primary Care
DX: Z79.891 Long term (current) use of opiate analgesic (principal)
CPT/HCPCS: 80307

== ENCOUNTER 2025-02-25 15:32 | Emergency (ER) | payer MEDICAID, SELFPAY ==
--- NOTE | ~2025-02-25 | XR_ITS ---
CLINICAL HISTORY: fall, wrist pain 4 views left wrist Comparison: 08/18/2023 Findings: No carpal bone fractures demonstrated. Borderline widening of the scapholunate interval stable. Radiocarpal joint intact. Radial and ulnar styloid preserved. Degenerative changes involving the 1st carpometacarpal joint and probable geodes involving the lunate. Mild soft tissue swelling. Calcified atherosclerotic disease. No radiopaque foreign body. Impression: 1. No acute fractures. Borderline widening of the scapholunate interval stable. Degenerative changes as described. This document has been electronically signed by: Inderjit Perez MD on 02/25/2025 16:40:35
--- NOTE | ~2025-02-25 | CT_ITS ---
CLINICAL HISTORY: fall down stairs with head strike CT cervical spine without intravenous contrast Comparison: None Findings: Craniocervical junction: No occipital condylar fractures. No evidence of atlantooccipital dissociation. The anterior and posterior arch and lateral masses of C1 are intact. Odontoid and atlanto-dental interval intact. The pars interarticularis of C2 is intact. There is normal vertebral body heights with no evidence of compression fracture. Mild degenerative spondylolisthesis C3-4. No locked or perched facets. No spinous process fractures. Lordotic curvature is mildly reversed apex C5. Motion may obscure subtle fractures. The retropharyngeal soft tissues are not widened. Segmental analysis as below (MR is more accurate in the evaluation of disc herniation and central canal pathology): C2-C3: Degenerative facet hypertrophy on the left C3-C4: Uncovertebral body spurs and degenerative facet hypertrophy more so on the left C4-C5: Uncovertebral body spurs and degenerative facet hypertrophy more so on the left C5-C6: Uncovertebral body spurs and degenerative facet hypertrophy bilaterally C6-C7: Uncovertebral body spurs more so on the right C7-T1: Uncovertebral body spurs The bones are without evidence of lytic or blastic lesion. Lung apices are unremarkable. Impression: 1. Motion may obscure subtle fractures. Degenerative spondylosis with listhesis. Reversed cervical lordosis may be positional. Consider a repeat exam This document has been electronically signed by: Inderjit Perez MD on 02/25/2025 17:22:27
--- NOTE | ~2025-02-25 | XR_ITS ---
CLINICAL HISTORY: fall right hand pain 3 views left hand Comparison: 08/18/2023 Findings: No fractures, subluxations or dislocations. No periostitis or bony destruction. Joint space narrowing of the interphalangeal joints and 1st carpometacarpal joint. Overhanging osteophytes d IP joints. Ulnar styloid preserved. Calcified atherosclerotic disease. Borderline widening scapholunate interval stable No radiopaque foreign body. Impression: 1. No acute fractures. Degenerative changes as described. Borderline widening of the scapholunate interval stable. Calcified atherosclerotic disease. This document has been electronically signed by: Inderjit Perez MD on 02/25/2025 16:43:17
--- NOTE | ~2025-02-25 | CT_ITS ---
CLINICAL HISTORY: fall down stairs with head strike CT of the head without intravenous contrast Comparison: None Findings: The ventricles and sulci are prominent, consistent with generalized cerebral parenchymal volume loss. The ventricles are symmetric and the basilar cisterns are intact. Mild periventricular, deep and subcortical white matter hypodensities are nonspecific but statistically reflect the sequela of chronic small vessel ischemic change. No intracranial hemorrhage, extra-axial fluid collection, midline shift or mass-effect is evident. No evidence of acute large vessel or territorial ischemia. Brainstem and cerebellum unremarkable. Vascular calcifications indicate intracranial atherosclerosis. The imaged portion of the paranasal sinuses demonstrate mild sphenoid and ethmoid sinusitis. No mastoid effusions are demonstrated. The orbital contents are unremarkable. Calvarium is intact. Impression: 1. No CT evidence of acute intracranial abnormality. 2. Cerebral volume loss, intracranial atherosclerotic disease and mild sequela of chronic small vessel ischemic disease. This document has been electronically signed by: Inderjit Perez MD on 02/25/2025 17:15:31
[2025-02-25 15:37] VITALS: BP 137/89; PULSE 77; RESP 18; TEMP 36.7; O2SAT 95; BMI 39.7
--- NOTE | 2025-02-25 15:39 | ED_ITS ---
HPI - Fall General Chief Complaint: Fall Stated Complaint: fell down stairs/left arm injury Time Seen by Provider: 02/25/25 16:17 Source: patient Mode of arrival: wheelchair Limitations: no limitations History of Present Illness ED Provider: Dr. Griselda Solis HPI Narrative: Patient comes to the emergency room via private vehicle, patient drove himself. Patient states that earlier today, he was walking down the stairs from the 2nd floor of his house, trying to get to a kitchen to start cooking dinner. However, patient states that he has devices on his knees bilaterally and believes that his knee device got on the way, and caused him to fall. Patient states that he fell backwards landing on his back and then he slipped down the stairs. Patient states that he did not lose consciousness, hit the back of his head, complaining of left-sided neck pain, no headache. Patient denies being on blood thinners. Patient also complaining of left hand and left wrist pain. Related Data Home Medications ?Medication ?Instructions ?Recorded ?Confirmed albuterol sulfate 90 mcg/actuation 2 puff inhalation Q 6H PRN 08/30/20 08/08/22 aerosol inhaler (ProAir HFA) blood pressure monitor #1 ea 08/30/20 08/08/22 blood-glucose meter #1 ea 08/30/20 08/08/22 bupropion HCl 150 mg 24 hr tablet, 150 mg PO QAM 08/3008/08/22 extended release (Wellbutrin XL) citalopram 10 mg tablet 10 mg PO DAILY 08/30/2001/23 folic acid 1 mg tablet 1 mg PO DAILY 08/30/2008/08 ketoconazole 2 % topical cream 1 appl topical DAILY 08/08/22 loperamide 2 mg capsule (Imodium 2 mg PO Q6H PRN 08/3008/08/22 A-D) melatonin 5 mg capsule mg PO 08/30/20 08/08/22 naloxone 4 mg/actuation nasal 1 spray intranasal Q2M 0 08/30/20 08/08/22 spray (Narcan) pantoprazole 40 mg tablet,delayed 40 mg PO DAILY 08/3008/08/22 release (Protonix) quetiapine 50 mg tablet (Seroquel) 50 mg PO DAILY 08/0408/08/22 oxycodone 5 mg tablet 5 mg PO TID PRN 09/14/2001/23 sitagliptin phosphate 25 mg tablet 25 mg PO QAM 08/08/22 (Januvia) CPAP (CPAP Machine/Device) 11/11/22 nebulizers 11/11/22 aspirin 81 mg tablet,delayed 81 mg PO DAILY 05/27/23 release (Taz Low Dose Aspirin) dulaglutide 1.5 mg/0.5 mL mg subcut QWEEK 05/27/23 subcutaneous [facility] cholecalciferol (vitamin D3) 50 50 mcg PO QPM 12/11/23 mcg (2,000 unit) tablet cyanocobalamin (vitamin B-12) 1,000 mcg IM 12/11/23 1,000 mcg/mL injection solution lorazepam 0.5 mg tablet 0.5 mg PO BID PRN 12/11/23 metformin 500 mg tablet 1,000 mg PO 12/11/23 rosuvastatin 5 mg tablet 5 mg PO QAM 12/11/23 sertraline 100 mg tablet 200 mg PO DAILY 12/11/23 valsartan 160 1 tab PO DAILY 12/11/23 mg-hydrochlorothiazide 25 mg tablet Previous Rx's ?Medication ?Instructions ?Recorded blood sugar diagnostic (Blood #10 ea 08/30/20 Glucose Test strips) umeclidinium 62.5 mcg/actuation 1 inh inhalation DAILY 30 days #30 03/01/21 blister powder for inhalation ea (Incruse Ellipta) fluticasone fur. 200 mcg-umeclid 1 inh inhalation RONNI Y 30 days #60 11/11/22 62.5 mcg-vilant 25 mcg ea inhalat.powder (Trelegy Ellipta) furosemide 20 mg tablet (Lasix) 20 mg PO QAM 3 days #3 tabs 11/11/22 prednisone 5 mg tablet See Rx Instructions PO DAILY #60 01/13/24 tabs gabapentin 300 mg capsule 300 mg PO .COMPLEX #120 caps 12/28/24 Allergies Allergy/AdvReac Type Severity Reaction Status Date / Time No Known Allergies Allergy Verified 02/25/25 15:39 Review of Systems 2 Review of Systems: Constitutional : No Weight loss, No Fever, No Chills, No Night Sweats, No Fatigue, No Malaise ENT/Mouth : No Hearing loss, No Ear Pain, No Nasal Congestion, No Sinus Pain, No Hoarseness, No sore throat, No Rhinorrhea, No Swallowing Difficulty Eyes: No Eye Pain, No Swelling, No Redness, No Foreign Body, No Discharge, No Vision Changes Cardiovascular : No Chest Pain, No SOB, No Dyspnea on Exertion, No Orthopnea, No Edema, No Palpitations Respiratory : No Cough, No Sputum, No Wheezing, No Smoke Exposure, No Dyspnea Gastrointestinal : No Nausea, No Vomiting, No Diarrhea, No Constipation, No abdominal Pain, No Hematochezia, No Melena Genitourinary : no irregular bleeding, No Dysuria, No Urinary Frequency, No Hematuria, No Urinary Incontinence, No Urgency, No Flank Pain, No Urinary Flow Changes, No Hesitancy Musculoskeletal : Complaining of left-sided neck pain and left-sided wrist and hand pain, No Myalgias, No Joint Swelling Skin : No Skin Lesions, No rash, complaining of a small superficial laceration to the left wrist Neuro : No Weakness, No Numbness, No Paresthesias, No Loss of Consciousness, No Dizziness, No Headache Psych : No Anxiety/Panic, No Depression, No SI/HI/AH/VH, No Social Issues, Heme/Lymph: No Bruising, No Bleeding,No Lymphadenopathy Endocrine : No Polyuria, No Polydipsia, No Temperature Intolerance [facility] Past Medical History Medical History Osteoarthritis of both hands Metastatic colon cancer to liver Seronegative inflammatory arthritis Pain of both wrist joints Bilateral hand swelling Arthritis Chest pain Asthma Sacroiliitis Chronic pain syndrome Bilateral primary osteoarthritis of knee Liver cancer Dyspnea Chest pain Abnormal chest x-ray DIANNA on CPAP Abnormal chest x-ray with multiple lung nodules Lung nodule seen on imaging study Foreign body (FB) in soft tissue Liver cancer Morbid obesity Surgical History History of incisional hernia repair (10/05/18) History of lung surgery Family History Family History Brother Arthritis Social History Social History Alcohol intake: never Patient Tobacco Use Status: Never used Tobacco Smoked in Last 30 Days: No Use of substances other than those prescribed or required for medical reasons: No Advance Directives: No Advance Directives Information Provided: No Physical Exam 2 Exam: Exam: Appearance: Alert. Oriented X3. No acute distress. Eyes: Pupils equal, round and reactive to light. ENT: Pharynx normal. Neck: Normal inspection. Neck supple. No lymph nodes noted. No crepitus. Pain to palpation on the left side of the neck, no C-spine tenderness, normal flexion and extension, no palpable step-offs CVS: Normal heart rate and rhythm. Pulses normal. Normal S1 and S2 Respiratory: No respiratory distress. Breath sounds normal. No Wheezing. No rales Abdomen: Soft and nontender. No rigidity. No distention. Skin: Skin warm and dry. Normal skin color. Normal skin turgor. 1 cm superficial laceration to the wrist on the ulnar aspect Extremities: No lower extremity edema. No Lacerations. No Rash Neuro: Oriented X 3. No motor deficit. No sensory deficit. Moving all extremities. No slurred speech. CN 2 through 12 grossly intact Psych: calm, cooperative, normal affect Vital Signs: Vital Signs: Last Vital Signs Temp 98.3 F 02/25/25 16:20 Pulse 90 02/25/25 16:20 Resp 16 02/25/25 16:20 BP 129/77 02/25/25 16:20 Pulse Ox 95 02/25/25 16:20 O2 Del Method Room Air 02/25/25 16:20 BMI result Body Mass Index 39.7 Course Course Course Narrative: 02/25/25 1539 DANIA Huddleston This is a Rapid Medical Examination (RME) performed by Alex Ornelas PA-C in triage. Full HPI, ROS, assessment and treatment plan per primary provider in the Main ED. 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 reports ascending the stairs to his home when he fell backwards upon reaching the top step. admits his knee gave out. reports falling down the entire flight of stairs from the second floor, approximates 36 stairs. reports L sided head strike. no LOC. no thinners. his only complaint at present is right shoulder and left wrist pain. PE/vitals: ambulating w/ cane per baseline. abrasion to L wrist with limited ROM. abrasion to right 3rd digit, no active bleeding. no midline c spine tenderness, from intact. perrla. Plan: labs, xrs, ct Medical Decision Making Medical Decision Making [facility] Narrative: My interpretation of labs: No significant abnormality in patient's hematology or chemistry Head CT does not show any acute abnormality X-rays of the hand and wrist do not show any acute abnormality fracture or dislocation. For a cervical spine CT scan, patient moved. However, there are no obvious fractures. Clinically, patient does not have any obvious fractures, mostly muscular type of pain Overall, no acute findings, patient feels well enough to go home, Differential Diagnosis Differential Diagnoses: The differential diagnosis associated with the presentation includes (Cervical spine injury, wrist fracture versus dislocation versus contusion) Lab Data [facility] Lab Attestation statement: I reviewed the patient's lab results. 02/25/25 15:59 02/25/25 15:59 Labs: Lab Results 02/25/25 Range/Units 15:59 WBC 9.7 (4.8-10.8) X10*3/uL RBC 4.03 L (4.60-5.80) X10*6/uL Hgb 12.0 L (14.0-18.0) g/dl Hct 35.6 L (42.0-52.0) % MCV 88.3 (80.0-98.0) fL MCH 29.8 (27.0-33.0) pg MCHC 33.7 (31.0-36.0) g/dl RDW 13.8 (11.0-16.0) % Plt Count 205 (160-400) X10*3/uL MPV 11.1 (9.4-12.4) fL Immature Gran % (Auto) 0.3 (0.0-0.4) % Neut % (Auto) 69.2 (45-73) % Lymph % (Auto) 21.4 (20-40) % Todd % (Auto) 7.9 (2-11) % Eos % (Auto) 0.7 (0-4) % Baso % (Auto) 0.5 (0-2) % Lymph # (Auto) 2.1 (1.2-4.9) X10*3/uL Todd # (Auto) 0.8 (0.1-1.2) X10*3/uL Eos # (Auto) 0.1 (0.0-0.4) X10*3/uL Baso # (Auto) 0.1 (0.0-0.2) X10*3/uL Abs Immat Gran (auto) 0.03 (0.00-0.03) X10*3/uL Absolute Neuts (auto) 6.7 (2.0-8.3) x10*3/uL Absolute Nucleated RBC 0.000 (0.0-0.012) X10*3/uL Nucleated RBC % (auto) 0.0 (0.0-0.2) /100WBC Hold Blue Top SEE NOTE Sodium 137 (135-145) mmol/L Potassium 3.5 (3.3-5.1) mmol/L Chloride 108 (96-108) mmol/L Carbon Dioxide 22 (22-29) mmol/L Anion Gap 11 L (12-20) BUN 14 (9-16) mg/dL Creatinine 0.81 (0.5-1.4) mg/dL Estim Creat Clear Calc 115.2 Estimated GFR > 60 Random Glucose 188 H (60-115) mg/dL Calcium 8.5 (8.4-10.2) mg/dL Total Bilirubin 0.6 (0.0-1.0) mg/dL AST 27 (5-37) U/L ALT 23 (0-40) U/L Alkaline Phosphatase 113 (39-117) U/L Total Protein 7.8 (6.5-8.0) g/dL Albumin 3.5 (3.5-5.0) g/dL Independent Interpretation I performed an independent interpretation of an: Plain X-Ray and CT Scan Radiology Impression Discussion of test interpretation with radiology: I have reviewed the radiologist's reading. Radiologist Impression: The ventricles and sulci are prominent, consistent with generalized cerebral parenchymal volume loss. The ventricles are symmetric and the basilar cisterns are intact. Mild periventricular, deep and subcortical white matter hypodensities are nonspecific but statistically reflect the sequela of chronic small vessel ischemic change. No intracranial hemorrhage, extra-axial fluid collection, midline shift or mass-effect is evident. No evidence of acute large vessel or territorial ischemia. Brainstem and cerebellum unremarkable. Vascular calcifications indicate intracranial atherosclerosis. The imaged portion of the paranasal sinuses demonstrate mild sphenoid and ethmoid sinusitis. No mastoid effusions are demonstrated. The orbital contents are unremarkable. Calvarium is intact. Impression: 1. No CT evidence of acute intracranial abnormality. 2. Cerebral volume loss, intracranial atherosclerotic disease and mild sequela of chronic small vessel ischemic disease. No acute fractures. Borderline widening of the scapholunate interval stable. Degenerative changes as described. Craniocervical junction: No occipital condylar fractures. No evidence of atlantooccipital dissociation. The anterior and posterior arch and lateral masses of C1 are intact. Odontoid and atlanto-dental interval intact. The pars interarticularis of C2 is intact. There is normal vertebral body heights with no evidence of compression fracture. Mild degenerative spondylolisthesis C3-4. No locked or perched facets. No spinous process fractures. Lordotic curvature is mildly reversed apex C5. Motion may obscure subtle fractures. The retropharyngeal soft tissues are not widened. Segmental analysis as below (MR is more accurate in the evaluation of disc herniation and central canal pathology): C2-C3: Degenerative facet hypertrophy on the left C3-C4: Uncovertebral body spurs and degenerative facet hypertrophy more so on the left C4-C5: Uncovertebral body spurs and degenerative facet hypertrophy more so on the left C5-C6: Uncovertebral body spurs and degenerative facet hypertrophy bilaterally C6-C7: Uncovertebral body spurs more so on the right C7-T1: Uncovertebral body spurs The bones are without evidence of lytic or blastic lesion. Lung apices are unremarkable. Impression: 1. Motion may obscure subtle fractures. Degenerative spondylosis with listhesis. Reversed cervical lordosis may be positional. Consider a repeat exam Critical Care Time Critical Care Time Critical Care Time: Yes Total Critical Care Time: 35 Attestation: I have personally provided critical care time. Time includes review of lab data, radiology results, discussion with consultants, and monitoring for potential decompensation. Intervention performed as documented. Discharge Plan Discharge Clinical Impression: Fall, Multiple contusions, Abrasion Patient Disposition: Home, Self-Care Instructions: Contusion in Adults (ED), Fall Prevention (ED) Additional Instructions: Please follow-up with your primary care physician tomorrow. If you have any worsening or new symptoms, please return to the emergency room or call 911 Prescriptions: No Action Incruse Ellipta 62.5 mcg/actuation blister with device 1 inh inhalation DAILY 30 Days Qty: 30 11RF gabapentin 300 mg capsule 300 mg PO .COMPLEX Qty: 120 11RF Rx Instructions: 300 mg orally one capsule in am and at noon and 2 capsules at hs; oxycodone 5 mg tablet 5 mg PO TID PRN loperamide [Imodium A-D] 2 mg capsule 2 mg PO Q6H PRN quetiapine [Seroquel] 50 mg tablet 50 mg PO DAILY albuterol sulfate [ProAir HFA] 90 mcg/actuation HFA aerosol inhaler 2 puff inhalation Q6H PRN citalopram 10 mg tablet 10 mg PO DAILY (DME) blood pressure monitor Kit See Rx Instructions .ROUTE .MEDSUPPLY Qty: 1 Rx Instructions: As directed (DME) blood-glucose meter Kit See Rx Instructions .ROUTE .MEDSUPPLY Qty: 1 Rx Instructions: As directed (DME) Blood Glucose Test Strip See Rx Instructions .ROUTE .MEDSUPPLY Qty: 10 0RF Rx Instructions: As directed Narcan 4 mg/actuation spray,non-aerosol 1 spray intranasal Q2M Rx Instructions: spray 1 dose into ONE nostril; alternate nostrils w each dose until help arrives folic acid 1 mg tablet 1 mg PO DAILY pantoprazole [Protonix] 40 mg tablet,delayed release (DR/EC) 40 mg PO DAILY bupropion HCl [Wellbutrin XL] 150 mg tablet extended release 24 hr 150 mg PO QAM melatonin 5 mg capsule PO ketoconazole 2 % cream 1 appl topical DAILY Januvia 25 mg tablet 25 mg PO QAM (DME) CPAP Machine/Device Device See Rx Instructions .ROUTE Rx Instructions: As directed (DME) nebulizers Misc See Rx Instructions .ROUTE Rx Instructions: As directed Trelegy Ellipta 200-62.5-25 mcg blister with device 1 inh inhalation DAILY 30 Days Qty: 60 12RF furosemide [Lasix] 20 mg tablet 20 mg PO QAM 3 Days Qty: 3 0RF metformin 500 mg tablet 1,000 mg PO cholecalciferol (vitamin D3) 50 mcg (2,000 unit) tablet 50 mcg PO QPM valsartan-hydrochlorothiazide 160-25 mg tablet 1 tab PO DAILY cyanocobalamin (vitamin B-12) 1,000 mcg/mL solution 1,000 mcg IM lorazepam 0.5 mg tablet 0.5 mg PO BID PRN rosuvastatin 5 mg tablet 5 mg PO QAM sertraline 100 mg tablet 200 mg PO DAILY aspirin [Taz Low Dose Aspirin] 81 mg tablet,delayed release (DR/EC) 81 mg PO DAILY Trulicity 1.5 mg/0.5 mL pen injector subcut QWEEK prednisone 5 mg tablet See Rx Instructions PO DAILY Qty: 60 1RF Rx Instructions: 1 to 2 tablets per day Print Language: Sinhala
--- NOTE | 2025-02-25 15:56 | ECG_ITS ---
Test Reason : fall Blood Pressure : */* mmHG Vent. Rate : 90 BPM Atrial Rate : 90 BPM P-R Int : 186 ms QRS Dur : 114 ms QT Int : 378 ms P-R-T Axes : 29 -21 43 degrees QTcB Int : 462 ms Normal sinus rhythm Minimal voltage criteria for LVH, may be normal variant ( R in aVL ) Borderline ECG When compared with ECG of 19-Oct-2019 12:47, No significant change was found Referred By: Generic ED Physician Electronically Signed By: Gaston Fulton
[2025-02-25 16:08] LABS: MANUAL DIFF FLAG NO
[2025-02-25 16:13] LABS: Hematocrit 35.6 % (42.0-52.0); Hemoglobin 12.0 g/dl (14.0-18.0); Imm Gran Abs Auto 0.03 X10*3/uL (0.00-0.03); Imm Gran Pct Auto 0.3 % (0.0-0.4); Lymphocytes Absolute Auto 2.1 X10*3/uL (1.2-4.9); Mean Corpuscular HGB Conc 33.7 g/dl (31.0-36.0); Mean Corpuscular Hemoglobin 29.8 pg (27.0-33.0); Mean Corpuscular Volume 88.3 fL (80.0-98.0); NRBC Abs Auto 0.000 X10*3/uL (0.0-0.012); NRBC Pct Auto 0.0 /100WBC (0.0-0.2); Platelet Count 205 X10*3/uL (160-400); Red Blood Count 4.03 X10*6/uL (4.60-5.80); White Blood Count 9.7 X10*3/uL (4.8-10.8)
[2025-02-25 16:20] VITALS: BP 129/77; PULSE 90; RESP 16; TEMP 36.8; O2SAT 95
[2025-02-25 16:29] LABS: Alanine Aminotransferase 23 U/L (0-40); Albumin Level 3.5 g/dL (3.5-5.0); Alkaline Phosphatase 113 U/L (39-117); Anion Gap 11 (12-20); Aspartate Amino Transferase 27 U/L (5-37); Blood Urea Nitrogen 14 mg/dL (9-16); Calcium 8.5 mg/dL (8.4-10.2); Carbon Dioxide 22 mmol/L (22-29); Chloride 108 mmol/L (96-108); Creatinine Clr Calc Pharmacy 115.2; Estimated Glomerular Filt Rate > 60; Potassium 3.5 mmol/L (3.3-5.1); Sodium 137 mmol/L (135-145); Total Protein 7.8 g/dL (6.5-8.0)
[2025-02-25 17:36] VITALS: BP 129/77; PULSE 90; RESP 16; TEMP 36.8; O2SAT 95
== END 2025-02-25 17:36 | disposition home or self-care (01) ==
PROVIDERS: Physician Assistant Medical; Emergency Provider Emergency Medicine; PCP Nurse Practitioner Primary Care
DX: S60.811A Abrasion of right wrist, initial encounter (principal); S60.412A Abrasion of right middle finger, initial encounter; S40.011A Contusion of right shoulder, initial encounter; W10.8XXA Fall (on) (from) other stairs and steps, initial encounter; Y93.89 Activity, other specified; Y92.038 Other place in apartment as the place of occurrence of the external cause; Y99.9 Unspecified external cause status
CPT/HCPCS: 36415; 70450; 72125; 73110; 73130; 80053; 85025; 93005; 99284

== ENCOUNTER → 2025-02-25 15:44 | Outpatient (BNV) | payer MEDICAID, SELFPAY | PROVIDERS: Emergency Provider Emergency Medicine; PCP Nurse Practitioner Primary Care; Visit Provider Radiology Diagnostic Radiology | DX: M47.812 Spondylosis without myelopathy or radiculopathy, cervical region (principal); G93.89 Other specified disorders of brain; I67.2 Cerebral atherosclerosis; M19.041 Primary osteoarthritis, right hand; M19.032 Primary osteoarthritis, left wrist | CPT/HCPCS: 70450; 72125; 73110; 73130 ==

== ENCOUNTER → 2025-02-25 15:56 | Outpatient (BNV) | payer MEDICAID, SELFPAY | PROVIDERS: Emergency Provider Emergency Medicine; PCP Nurse Practitioner Primary Care; Visit Provider Internal Medicine Cardiovascular Disease | DX: Z13.6 Encounter for screening for cardiovascular disorders (principal); W19.XXXA Unspecified fall, initial encounter | CPT/HCPCS: 93010 ==

== ENCOUNTER 2025-05-31 11:19 | Outpatient (AMB) | payer MEDICAID, SELFPAY ==
[2025-05-31 11:21] VITALS: BP 148/80; PULSE 93; O2SAT 94
--- NOTE | 2025-05-31 11:21 | A.OFFVIS_ITS ---
Vital Signs 05/31/25 11:21 Height 5 ft 8 in BMI Reason not done Patient refused/unable BP 148/80 H Blood Pressure Location Lt brachial Position Sitting Pulse 93 Pulse Source Pulse Oximeter Pulse Oximetry (%) 94 Oxygen Delivery Method Room Air Intake Visit Reasons: dianna Sport Shoe Spike Assembler Required: No Accompanied by: Self / Same As Patient Allergies No Known Allergies Allergy (Verified 05/31/25 11:25) HPI Comments Details: The patient is a 64-year-old gentleman with ongoing respiratory issues. He complains of significant shortness of breath with minimal activity. Moderate in severity. He was admitted to [facility] for his worsening symptoms. During that evaluation he did undergo a CT scan of the chest ruling out pulmonary emboli or active pulmonary disease. Of note he did have some fatty infiltration of the liver with multiple lesions consistent with this history of hepatocellular carcinoma. The patient did not qualify for oxygen was discharged home. In the meantime the patient did have a sleep study at [facility] for ongoing symptoms of sleep apnea which include daytime drowsiness and elevated Kennes[place] score of 12/24. He was noted to have significant sleep apnea. And the recommendation is for him to start CPAP therapy as soon as possible. In the office we also performed a 6 minutes walk test due to his shortness of breath. Again, he desaturated down to the low 90s but does not qualify for oxygen supplementation. He started having difficulties tolerating CPAP. He states that he was waking up for short of breath with it. He wasn't sure if he was getting too little pressure. We did download the machine in appears that his average pressure 9.8. Therefore, changes machine to CPAP set up with a pressure of 10 cm and a ramp of 8 cm. He will try that and bring the machine in few weeks to see if we need to further adjusted. 11/11/2022 the patient is here for a pulmonary follow-up visit. The patient has been struggling with multiple things. Having significant shortness of breath even with minimal activity. Also complains palpitations. He has been strugglin g with his CPAP. Seems like sometimes he wakes up very short of breath while using the CPAP almost like the machine is not able to getting pressures that adequate to treat his of obstructive apnea and waking up with an apneic episodes. I did download the machine. It appears that his machine is set up with a minimum pressure of 12 and a maximum pressure of 18. However, the machine staying at a pressure of 12. Does not appear to be regulating. This is an old machine greater than 5 years old. It may be that is no longer working effectively. Will increase the pressure at this time to 14-18. However, based on the fact does not appear to be working appropriately and also request a new replacement APAP for him. I know that he has been very adherent to the therapy in the fact that it is not working and increasing the pressures that he needs it is a problem. The patient is also struggling with his weight. He has to lose weight in order to undergo a hernia repair. He has already lost around 20 lb. He continues with respiratory therapy. In the office visit we did go for brief walking oximetry. He maintained a good pulse ox of 95% although he was tachycardic up to 116 with minimal activity. He appears to be volume overloaded will give him another few days of Lasix to try to improve his volume status. Patient also has chest congestion go ahead and treat his and chronic bronchitis and will also optimize his respiratory therapy. I am hopeful we can improve his breathing in order for him to stay active continues to lose weight. 06/24/2023 the patient is here for a pulmonary follow-up visit. The patient has been doing well from a respiratory standpoint. Patient has been using his inhalers as prescribed. He has not required her short-acting beta agonists and has not required any prednisone or antibiotics. He has also been using CPAP regularly. He uses it every night more than 4 hours and also uses it during the daytime as needed. He finds it very helpful. He has not been able to get any supplies. We did request a replacement machine during the last visit but he did not get 1. Will go ahead and continue to work with his older machine that is still working partially. Will go ahead and request additional supplies however to make sure that he continues to be functional. The patient will be following up with his surgeon regarding his hepatocellular carcinoma and also considering bariatric surgery. The patient is also following up closely with orthopedic surgery regarding his arthritis of the knees. Clinically from a respiratory status the patient is doing well may be able to proceed with surgery. 12/29/2023 the patient is here for a pulmonary follow-up visit. Overall he is doing better from a respiratory status. He continues uses respiratory medications with good effect. Still having shortness of breath with activity. In addition to that he has been using the CPAP. The CPAP therapy has been affecting beneficial. Although seems be shutting off on him at times and he is concerned because sometimes he wakes up short of breath with the machine shut off. I did try to download the data. He needs to use it more than what he is using right now. He understands use has use it at least 4 hours a night. He is going to work on that. In the meantime he needs to get supplies. I will request supplies from [employer]. The patient has had this machine since 06/22/2019. He understands that if he were to get a new 1 able to have to be after 5 years. Therefore, will follow-up in 6 months and at that point the machine still not working well we can request a replacement machine. 08/16/2024 the patient is here for pulmonary follow-up visit. He is struggling with CPAP. Feels like the pressures are low again. Was made to adjust them again. Unfortunately is not connecting he did not bring it in. Therefore, he is going to go home and connected to the wall socket and then again wirelessly increase the pressures further. He needs to make sure to use a fullface mask. He also having an evaluation with orthopedics I [facility] Henderson for his knee. He is going to need a likely a total knee replacement. He is having significant issues walking. Right now his respiratory symptoms are stable he is using his inhalers. He is able to proceed with anesthesia and surgery at this time. It does carry some moderate risk for perioperative pulmonary complications which include, atelectasis, hypoxia, pneumonia and bronchospasms. But at this time he is medically optimized and maybe proceed with consenting for surgery. The patient will return in 4 months. When he returns he is going to bring CPAP to make sure that we adequately adjusted. 05/31/2025 the patient is here for pulmonary follow-up visit. The patient has been having difficulties because his CPAP broke down. No longer working. Therefore he is feeling significant fatigue and daytime drowsiness. Kennesaw score elevated at 12/24. The patient needs to get a CPAP working. I will send a script to the [employer], [facility] to get him a new CPAP. I did call the company as well to make sure his active. If he is not active will order an in- lab sleep study in order to get him reactivated with the diagnosis get him a new machine. In the meantime the patient has been struggling with his breathing. He does have shortness of breath and he is dependent on a wheelchair. I will get him a nebulizer in order to improve his overall respiratory capacity. The patient will continue with Trelegy and rescue inhalers well. The patient follow-up in 4-6 months if he has any issues prior to that he can always call for an earlier assessment. [facility] Medical History (Updated 05/31/25 @ 12:26 by Terry Torrez MD) DIANNA (obstructive sleep apnea) Asthma-COPD overlap syndrome Osteoarthritis of both hands Metastatic colon cancer to liver Seronegative inflammatory arthritis Pain of both wrist joints Bilateral hand swelling Arthritis Chest pain Asthma Sacroiliitis Chronic pain syndrome Bilateral primary osteoarthritis of knee Liver cancer Dyspnea Chest pain Abnormal chest x-ray DIANNA on CPAP Abnormal chest x-ray with multiple lung nodules Lung nodule seen on imaging study Foreign body (FB) in soft tissue Liver cancer Morbid obesity Surgical History (Reviewed 01/13/24 @ 14:39 by Petra Wilhelm [facility]) History of incisional hernia repair (10/05/18) History of lung surgery Family History Brother Arthritis Social History Alcohol intake: never Patient Tobacco Use Status: Never used Tobacco Review of Systems Const Denies daytime sleepiness, Denies excessive sweating, Denies fatigue, Denies snoring, Denies stops breathing during sleep and Reports weight loss Eyes Denies change in vision ENT Reports Normal hearing present Card Reports chest pain, Denies chest pain with activity, Denies diaphoresis, Denies syncope, Denies rapid heart rate, Denies pedal edema, Reports dyspnea and Reports dyspnea on exertion Resp Denies chest congestion, Reports cough, Denies hemoptysis, Denies pain on inspiration, Denies pain with cough, Reports dyspnea, Reports dyspnea on exertion, Denies snoring and Denies wheezing GI Denies abdominal pain, Denies belching, Denies melena and Denies bloating Denies urinary incontinence Musc Reports as per HPI Neuro Reports Normal hearing present, Denies syncope, Denies memory loss, Denies seizure-like activity and Denies Sensory deficit (Neuro) Psych Denies irritability, Denies anhedonia, Denies memory loss, Denies visual carrero ucinations, Denies hallucinations, Denies tactile hallucinations, Denies homicidal ideation and Denies suicidal ideation Endo Denies excessive sweating and Denies fatigue Aller/Immun Denies wheezing Physical Exam Vital Signs: Last Vital Signs Pulse 93 05/31/25 11:21 BP 148/80 H 05/31/25 11:21 Pulse Ox 94 05/31/25 11:21 Oxygen Delivery Method Room Air 05/31/25 11:21 Const General: comfortable Limitations: wheelchair HEENT Head: Yes normocephalic General nose exam: Abnormal external nose present and Nasal discharge present Neck Neck: Yes supple Chest Chest palpation & inspection: normal inspection of the chest Resp Effort & Inspection: Actively coughing Auscultation: no rales, no rhonchi, no wheezes and diminished lung sounds Cardio Rate: regular rate Rhythm: regular rhythm Heart sounds: S1 normal heart sound present and S2 normal heart sound present GI Palpation (GI): Soft to palpation and nontender Auscultation: normal bowel sounds Skin General skin exam: no rashes or lesions noted Neuro Cranial nerves: Yes Normal hearing present Sensory Exam: No Sensory deficit (Neuro) Extrem General: No clubbing and No cyanosis Assessment & Plan Assessment & Plan (1) DIANNA on CPAP: Code(s): G47.33 - Obstructive sleep apnea (adult) (pediatric); Z99.89 - Dependence on other enabling machines and devices Category: Medical (2) Asthma: Code(s): J45.909 - Unspecified asthma, uncomplicated Category: Medical Qualifiers: Asthma complication type: uncomplicated Asthma persistence: persistent Asthma severity: moderate Qualified Code(s): J45.40 - Moderate persistent asthma, uncomplicated (3) Dyspnea: Code(s): R06.00 - Dyspnea, unspecified Category: Medical Qualifiers: Dyspnea type: dyspnea on exertion Qualified Code(s): R06.09 - Other forms of dyspnea (4) Liver cancer: Code(s): C22.9 - Malignant neoplasm of liver, not specified as primary or secondary Category: Medical Qualifiers: Liver malignancy type: hepatocellular carcinoma Qualified Code(s): C22.0 - Liver cell carcinoma (5) Asthma-COPD overlap syndrome: Code(s): J44.9 - Chronic obstructive pulmonary disease, unspecified Category: Medical (6) DIANNA (obstructive sleep apnea): Code(s): G47.33 - Obstructive sleep apnea (adult) (pediatric) Category: Medical Plan Low sodium diet continue Trelegy GEMMA as needed start nebulizer BID with albuterol continue APAP 14-18, needs replacement APAP. Current APAP is broken beyond repeair. Will request [facility] to re-qualify for PAP therapy gabapentin at night to improve sleep anf neuro pathic pain F/U 6 months Orders: Orders RT [facility] in-lab sleep study Today G47.33 - Obstructive sleep apnea (adult) (pediatric) Medications: New albuterol sulfate 90 mcg/actuation (ProAir HFA) 2 puffs inhalation Q6H PRN 8.5 grams 8RF shortness of breath or wheezing albuterol sulfate 2.5 mg (3 mL) inhalation BID 180 mL 11RF 30 days J44.9 - Chronic obstructive pulmonary disease, unspecified, J45.40 - Moderate persistent asthma, uncomplicated Refilled xrbpudnuvbh-tbzggzcry-yhfkbzeh 200-62.5-25 mcg (Trelegy Ellipta) 1 inh inhalation DAILY 60 ea 12RF 30 days Coding Level of Care Code Est Pt Level 4 (66471) Complex EM visit Add On G2211 Diagnoses DIANNA on CPAP G47.33; Z99.89 Moderate persistent asthma without complication J45.40 Asthma complication type: uncomplicated Asthma persistence: persistent Asthma severity: moderate Dyspnea on exertion R06.09 Dyspnea type: dyspnea on exertion Hepatocellular carcinoma C22.0 Liver malignancy type: hepatocellular carcinoma Asthma-COPD overlap syndrome J44.9 DIANNA (obstructive sleep apnea) G47.33 Time Spent (min) 17
--- OUTSIDE RECORDS SUMMARY | 2025-05-31 14:26 | XMS_ITS | Encounter Summary ---
Author Organization [employer] Address [address] [facility] [address] [place] [address] Care Team Providers Care Tooler Name Role Phone Marleni Whyte Primary Care Provider Joe Garcia PharmD Unavailable [phone] Zuhair Cabral RN Unavailable [phone] Wen Rock Unavailable Karli Mccloud MD Primary Care Provider [phone] Reason for Visit * Reason Comments Med Refill Encounter Details Date Type Department Care Team (Late st Contact Info) Description 06/22/2023 Refill [facility] MEDICINE [address] [place], [place] [phone] Marleni Whyte ANP [address] [place], [place] [phone] Primary osteoarthritis of right knee Social History [...] Care Team (Late st Contact Info) Description 06/15/2025 3:30 PM EST Office Visit [facility] OPTOMETRY [address] [place] [address] Alison Javier, OD [address] [place] [address] 06/22/2025 10:00 AM EST Medication Management [facility] MEDICINE [address] [place] [address] Joe Garcia, PharmD [address] [place] [address] documented as of this encounter Visit Diagnoses Diagnosis Primary osteoarthritis of right knee documented in this encounter Additional Health Concerns Assessment Noted Time PHQ-9 Depression Total Score: 0 08/20/19 23 2:04 PM EST documented as of this encounter Care Teams Tooler Relationship Specialty Start Date End Date Marleni Whyte ANP [address] [place] [address] PCP - General Family Medicine 06/23/22 03/21/25 Karli Mccloud MD [address] [place] [id number] PCP - General Family Medicine 03/22/25 Joe Garcia, ErickD [address] [place] [address] Pharmacist Internal Medicine 07/04/24 Zuhair Cabral, RN [address] [place] [address] Registered Nurse Family Medicine 02/27/25 Wen Rock 02/27/[address] Elmer Lisa Lamp Cleaner [address] LightKnitting Machine Mechanic 10/09/23 documented as of this encounter
--- OUTSIDE RECORDS SUMMARY | 2025-05-31 14:26 | XMS_ITS | Encounter Summary ---
Author Organization [employer] Address [address] [facility] [address] [place] [address] Care Team Providers Care Nutrition Teacher Name Role Phone Marleni Whyte Primary Care Provider Joe Garcia PharmD Unavailable [phone] Zuhair Cabral RN Unavailable [phone] Wen Rock Unavailable Karli Mccloud MD Primary Care Provider [phone] Reason for Visit * Reason Onset Date Comments Med Refill 05/30/2024 Encounter Details Date Type Department Care Team (Late st Contact Info) Description 05/30/2024 Telephone [facility] MEDICINE [address] [place], [place] [phone] Marleni Whyte ANP [address] [place], [place] [phone] Med Refill Social History Tobacco Use Types [...] (Roxicodone) 5 MG To be sent to: [facility] documented in this encounter Plan of Treatment Upcoming Encounters Date Type Department Care Team (Late st Contact Info) Description 06/15/2025 3:30 PM EST Office Visit [facility] OPTOMETRY [address] [place] [address] Alison Javier, OD [address] [place] [address] 06/22/2025 10:00 AM EST Medication Management [facility] MEDICINE [address] [place] [address] Joe Garcia, PharmD [address] [place] [address] documented as of this encounter Visit Diagnoses Not on filedocumented in this encounter Additional Health Concerns Assessment Noted Time PHQ-9 Depression Total Score: 25 024 11:06 AM EST documented as of this encounter Care Teams Nutrition Teacher Relationship Specialty Start Date End Date Marleni Whyte ANP [address] [place], [place] [phone] PCP - General Family Medicine 06/23/22 03/21/25 Karli Mccloud MD [address] [place], [place] [phone] PCP - General Family Medicine 03/22/25 Joe Garcia PharmD [address] [place], [place] [phone] Pharmacist Internal Medicine 07/04/24 Zuhair Cabral, LUIS [address] [place] [id number] Registered Nurse Family Medicine 02/27/25 Wen Rock 02/27/25 Elmer Lisa Supervisor ReworkPhoto Stylist 10/09/23 documented as of this encounter
--- OUTSIDE RECORDS SUMMARY | 2025-05-31 14:26 | XMS_ITS | Encounter Summary ---
Author Organization [employer] Address [address] [facility] [address] [place] [address] Care Team Providers Care Rn Child Name Role Phone Marleni Whyte Primary Care Provider [phone] Joe Garcia PharmD Unavailable [phone] Zuhair Cabral RN Unavailable [phone] Wen Rock Unavailable Karli Mccloud MD Primary Care Provider [phone] Reason for Visit * Reason Onset Date Comments Med Refill 04/01/2023 Encounter Details Date Type Department Care Team (Late st Contact Info) Description 04/01/2023 Telephone [facility] MEDICINE [address] [place], [place] [phone] Marleni Whyte ANP [address] [place], [place] [phone] Med Refill Social History Tobacco Use Types [...] Description 06/15/2025 3:30 PM EST Office Visit [facility] OPTOMETRY [address] [place] [address] Alison Javier, OD [address] [place] [address] 06/22/2025 10:00 AM EST Medication Management [facility] MEDICINE [address] [place] [address] Joe Garcia, PharmD [address] [place] [address] documented as of this encounter Visit Diagnoses Not on filedocumented in this encounter Additional Health Concerns Assessment Noted Time PHQ-9 Depression Total Score: 0 08/20/19 23 2:04 PM EST documented as of this encounter Care Teams Rn Child Relationship Specialty Start Date End Date Marleni Whyte ANP [address] [place] [address] PCP - General Family Medicine 06/23/22 03/21/25 Karli Mccloud MD [address] [place] [address] PCP - General Family Medicine 03/22/25 Joe Garcia, PharmD [address] [place] [address] Pharmacist Internal Medicine 07/04/24 Zuhair Cabral, LUIS [address] [place] [address] Registered Nurse Family Medicine 02/27/25 Wne Rock 02/27/25 Elmer Lisa Medical InstructorProvider Relations Consultant 10/09/23 documented as of this encounter
--- OUTSIDE RECORDS SUMMARY | 2025-05-31 14:26 | XMS_ITS | Encounter Summary ---
Author Organization [email or web address] Address [address] [facility] [address] [place] [address] Care Team Providers Care College Specialist Name Role Phone Marleni Whyte Primary Care Provider [phone] Joe Garcia PharmD Unavailable [phone] Zuhair Cabral RN Unavailable [phone] Wen Rock Unavailable Karli Mccloud MD Primary Care Provider [phone] Reason for Visit * Reason Comments Med Refill Encounter Details Date Type Department Care Team (Late st Contact Info) Description 10/07/2024 Refill [facility] MEDICINE [address] [place], [place] [phone] Marleni Whyte ANP [address] [place], [place] [phone] Social History Tobacco Use Types Packs/Day Years [...] Description 06/15/2025 3:30 PM EST Office Visit [facility] OPTOMETRY [address] [place] [address] Yaya, Alison, OD [address] [place] [address] 06/22/2025 10:00 AM EST Medication Management [facility] MEDICINE [address] [place] [address] Joe Garcia, PharmD [address] [place] [address] documented as of this encounter Visit Diagnoses Not on filedocumented in this encounter Additional Health Concerns Assessment Noted Time PHQ-9 Depression Total Score: 25 024 11:06 AM EST documented as of this encounter Care Teams College Specialist Relationship Specialty Start Date End Date Marleni Whyte ANP [address] [place] [phone] PCP - General Family Medicine 06/23/22 03/21/25 Karli Mccloud MD [address] [place] [phone] PCP - General Family Medicine 03/22/25 Joe Garcia, ErickD [address] [place], [place] [phone] Pharmacist Internal Medicine 07/04/24 Zuhair Cabral, RN [address] [place] [address] Registered Nurse Family Medicine 02/27/25 Wen Rock 02/27/25 Elmer Lisa Warehousing TechnicianCrankshaft Balancer 10/09/23 documented as of this encounter
--- OUTSIDE RECORDS SUMMARY | 2025-05-31 14:26 | XMS_ITS | Encounter Summary ---
Author Organization [employer] Address 75 [facility] 7t [place] [address] Care Team Providers Care Spindle Repairer Name Role Phone Marleni Whyte Primary Care Provider Joe Garcia PharmD Unavailable [phone] Zuhair Cabral RN Unavailable [phone] Wen Rock Unavailable Karli Mccloud MD Primary Care Provider Reason for Visit * Reason Comments Med Refill Encounter Details Date Type Department Care Team (Late st Contact Info) Description 07/21/2024 Refill [facility] CHC MED & PEDS [address] [place], [place] [phone] Marleni Whyte ANP [address] [place] [address] Primary osteoarthritis of right knee Social History [...] 07/26/2024 11:26 AM EST Pt here for ELECTROLYSIS ENGINEER NV. Utox Pos for MANUEL again (pos on 05/20, 05/04 and 01/29/24 that was confirmed by lab). Pt still denies any cocaine use. Next ELECTROLYSIS ENGINEER/ chronic pain group appt scheduled for 08/30/24 at 9:30am. Please advise. documented in this encounter Plan of Treatment Upcoming Encounters Date Type Department Care Team (Late st Contact Info) Description 06/15/2025 3:30 PM EST Office Visit [facility] OPTOMETRY [address] [place], [place] [phone] Yaya, Alison, OD 230 [place] [address] 06/22/2025 10:00 AM EST Medication Management [facility] MEDICINE [address] [place] [address] Joe Garcia, PharmD [address] [place] [address] documented as of this encounter Visit Diagnoses Diagnosis Primary osteoarthritis of right knee documented in this encounter Additional Health Concerns Assessment Noted Time PHQ-9 Depression Total Score: 25 024 11:06 AM EST documented as of this encounter Care Teams Spindle Repairer Relationship Specialty Start Date End Date Marleni Whyte ANP [address] [place] [address] PCP - General Family Medicine 06/23/22 03/21/25 Karli Mccloud MD [address] [place] [address] PCP - General Family Medicine 03/22/25 Joe Garcia, ErickD [address] [place] [address] Pharmacist Internal Medicine 07/04/24 Zuhair Cabral, LUIS [address] [place] [address] Registered Nurse Family Medicine 02/27/25 Wen Rock 02/27/25 Elmer Lisa Lung Gun OperatorWine Bottle Inspector 10/09/23 documented as of this encounter
--- OUTSIDE RECORDS SUMMARY | 2025-05-31 14:26 | XMS_ITS | Encounter Summary ---
Author Organization [employer] Address 75 [facility] 7t [place] [address] Care Team Providers Care Camera Mechanic Name Role Phone Marleni Whyte Primary Care Provider Joe Garcia PharmD Unavailable [phone] Zuhair Cabral RN Unavailable [phone] Wen Rock Unavailable Karli Mccloud MD Primary Care Provider Reason for Visit * Reason Comments Med Refill Encounter Details Date Type Department Care Team (Late st Contact Info) Description 11/15/2024 Refill [facility] MEDICINE [address] [place], [place] [phone] Marleni Whyte ANP [address] [place], [place] [phone] unattended ground sensor specialist (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) use of opiate analgesic; Arthritis of both knees Social History Tobacco Use Types Packs/Day Years Used Date Smoking Tobacco: Never Passive Smoke Exposure: Never Smokeless Tobacco: Never Alcohol Use Standard Drinks/Week Comments Not Currently 0 (1 standard drink = 0.6 oz pur e alcohol) Depression Answer Date Recorded Patient Health Questionnaire-9 Score 22 11/14/2024 Patient Health Questionnaire-9 Score 22 11/14/2024 Last PHQ-9: Questionnaire Data Not on file 0 11/14/2024 Housing Stability Answer Date Recorded What is [...] Date Recorded Patient Health Questionnaire-2 Score 6 11/14/2024 Sex and Gender Information Value Date Recorded Sex Assigned at Male 06/02/2022 10:30 AM EDT Legal Sex Male 10:30 AM EDT Gender Identity Male 06/02/2022 10:30 AM EDT Sexual Orientation Straight 06/02/2022 10 :30 AM EDT documented as of this encounter Plan of Treatment Upcoming Encounters Date Type Department Care Team (Late st Contact Info) Description 06/15/2025 3:30 PM EST Office Visit [facility] OPTOMETRY [address] [place] [address] Yaya, Alison, OD [address] [place] [address] 06/22/2025 10:00 AM EST Medication Management [facility] MEDICINE [address] [place] [address] Joe Garcia, PharmD [address] [place] [address] documented as of this encounter Visit Diagnoses Diagnosis FDC (current) use of opiate analgesic Arthritis of both knees documented in this encounter Additional Health Concerns Assessment Noted Time PHQ-9 Depression Total Score: 22 025 10:52 AM EDT documented as of this encounter Care Teams Camera Mechanic Relationship Specialty Start Date End Date Marleni Whyte ANP [address] [place] [address] PCP - General Family Medicine 06/23/22 03/21/25 Karli Mccloud MD [address] [place], [place] [phone] PCP - General Family Medicine 03/22/25 Joe Garcia, ErickD [address] [place], [place] [phone] Pharmacist Internal Medicine 07/04/24 Zuhair Cabral, LUIS [address] [place] [address] Registered Nurse Family Medicine 02/27/25 Wen Rock 02/27/25 Elmer Lisa Potash FlakerLean Facilitator 10/09/23 documented as of this encounter
--- OUTSIDE RECORDS SUMMARY | 2025-05-31 14:26 | XMS_ITS | Encounter Summary ---
Author Organization [employer] Address 75 [facility] 7t [place] [address] Care Team Providers Care Flying Teacher Name Role Phone Marleni Whyte Primary Care Provider Joe Garcia PharmD Unavailable [phone] Zuhair Cabral RN Unavailable [phone] Wen Rock Unavailable Karli Mccloud MD Primary Care Provider Reason for Visit * Reason Comments Med Refill Encounter Details Date Type Department Care Team (Late st Contact Info) Description 11/06/2024 Refill [facility] MEDICINE [address] [place], [place] [phone] Marleni Whyte ANP [address] [place], [place] [phone] Type 2 diabetes mellitus with hyperlipidemia (CMS/HCC) ([facility]) Social History Tobacco Use Types Packs/Day Years Used Date Smoking Tobacco: Never Passive Smoke Exposure: Never Smokeless Tobacco: Never Alcohol Use Standard Drinks/Week Comments Not Currently 0 (1 standard drink = 0.6 oz pur e alcohol) Depression Answer Date Recorded Patient Health Questionnaire-9 Score 23 11/09/2024 Patient Health Questionnaire-9 Score 23 11/09/2024 Last PHQ-9: Questionnaire Data Not on file 0 11/09/2024 Housing Stability Answer Date Recorded What is [...] Date Recorded Patient Health Questionnaire-2 Score 6 11/09/2024 Sex and Gender Information Value Date Recorded Sex Assigned at Male 06/02/2022 10:30 AM EDT Legal Sex Male 10:30 AM EDT Gender Identity Male 06/02/2022 10:30 AM EDT Sexual Orientation Straight 06/02/2022 10 :30 AM EDT documented as of this encounter Functional Status * Over the past 2 weeks, how often have you been bothered by any of the following problems? Question Answer Date of Assessment Author Patient Health Questionnaire -2 Score 6 11/09/2024 2:33 PM EDT Susana Pierce [email or web address] * Little interest or pleasure in doing things Answer Date of Assessment Author Nearly every day 11/09/2024 2:33 PM EDT Sun Canseco Ba * Feeling down, depressed, or hopeless Answer Date of Assessment Author Nearly every day 11/09/2024 2:33 PM EDT Sun Canseco Ba * Trouble falling or staying asleep, or sleeping too much Answer Date of Assessment Author Nearly every day 11/09/2024 2:33 PM EDT Sun Canseco Ba * Feeling tired or having little energy Answer Date of Assessment Author Nearly every day 11/09/2024 2:33 PM EDT Sun Canseco Ba * Poor appetite or overeating Answer Date of Assessment Author Nearly every day 11/09/2024 2:33 PM EDT Sun Canseco Ba * Feeling bad about yourself - or that you are a failure or have let yourself or your family down Answer Date of Assessment Author Nearly every day 11/09/2024 2:33 PM EDT Sun Canseco Ba * Trouble concentrating on things, such as reading the newspaper or watching television Answer Date of Assessment Author More than half the days 11/09/2024 2:33 PM EDT Sun Cornejo * Moving or speaking so slowly that other people could have noticed? Or the opposite - being so fidgety or restless that you have been moving around a lot more than usual. Answer Date of Assessment Author More than half the days 11/09/2024 2:33 PM EDT Sun Cornejo * Thoughts that you would be better off or hurting yourself in some way Answer Date of Assessment Author Several days 11/09/2024 2:33 PM EDT Sun Mantilla * Patient Health Questionnaire-9 Score Answer Date of Assessment Author 23 11/09/2024 2:33 PM EDT Sun Mantilla * How difficult have these problems made it for you to do your work, take care of things at home, or get along with other people? Answer Date of Assessment Author Very difficult 11/09/2024 2:33 PM EDT Sun Mantilla documented as of this encounter Plan of Treatment Upcoming Encounters Date Type Department Care Team (Late st Contact Info) Description 06/15/2025 3:30 PM EST Office Visit [facility] OPTOMETRY [address] [place] [address] Yaya, Alison, OD 230 [place] [address] 06/22/2025 10:00 AM EST Medication Management [facility] MEDICINE [address] [place] [address] Joe Garcia, PharmD [address] [place] [address] documented as of this encounter Visit Diagnoses Diagnosis Type 2 diabetes mellitus with hyperlipidemia (HCC) documented in this encounter Additional Health Concerns Assessment Noted Time PHQ-9 Depression Total Score: 25 024 11:06 AM EST documented as of this encounter Care Teams Flying Teacher Relationship Specialty Start Date End Date Marleni Whyte ANP [address] [place] [phone] PCP - General Family Medicine 06/23/22 03/21/25 Karli Mccloud MD [address] [place] [address] [phone] PCP - General Family Medicine 03/22/25 Joe Garcia, ErickD [address] [place] [address] Pharmacist Internal Medicine 07/04/24 Zuhair Cabral, RN [address] [place] [address] Registered Nurse Family Medicine 02/27/25 Wen Rock 02/27/25 Elmer Lisa Chucking And Boring Machine OperatorNurse Orthopedic 10/09/23 documented as of this encounter
--- OUTSIDE RECORDS SUMMARY | 2025-05-31 14:26 | XMS_ITS | Encounter Summary ---
Author Organization [employer] Address 75 [facility] 7t [place] [address] Care Team Providers Care Manager Print Name Role Phone Marleni Whyte Primary Care Provider Joe Garcia PharmD Unavailable [phone] Zuhair Cabral RN Unavailable [phone] Wen Rock Unavailable Karli Mccloud MD Primary Care Provider Reason for Visit * Reason Comments Med Refill Encounter Details Date Type Department Care Team (Late st Contact Info) Description 09/15/2024 Refill [facility] CHC MED & PEDS [address] [place], [place] [phone] Marleni Whyte ANP [address] [place] [address] Acute pain of both knees Social History [...] Description 06/15/2025 3:30 PM EST Office Visit [facility] OPTOMETRY [address] [place] [address] Yaya, Alison, OD 230 [place] [address] 06/22/2025 10:00 AM EST Medication Management [facility] MEDICINE [address] [place] [address] Joe Garcia, PharmD [address] [place] [address] documented as of this encounter Visit Diagnoses Diagnosis Acute pain of both knees documented in this encounter Additional Health Concerns Assessment Noted Time PHQ-9 Depression Total Score: 25 024 11:06 AM EST documented as of this encounter Care Teams Manager Print Relationship Specialty Start Date End Date Marleni Whyte ANP [address] [place] [address] PCP - General Family Medicine 06/23/22 03/21/25 Karli Mccloud MD [address] [place] [address], [place] [address] PCP - General Family Medicine 03/22/25 Joe Garcia, ErickD [address] [place] [address] Pharmacist Internal Medicine 07/04/24 Zuhair Cabral, RN [address] [place] [address] Registered Nurse Family Medicine 02/27/25 Wen Rock 02/27/25 Elmer Lisa Screw Machine OperatorResidential Leasing Manager 10/09/23 documented as of this encounter
--- OUTSIDE RECORDS SUMMARY | 2025-05-31 14:26 | XMS_ITS | Clinical Summary ---
Author Organization [facility] Address [address] [place] [address] Phone Care Team Providers Care Assistant Plant Controller Name Role Phone Physician, No Pcp Primary [...] WEEK DIRECTED 4 Active FreeStyle Isidro 2 Red Jacket misc USE DIRECTED EVERY 8 HOURS 4 [...] times a day. 4 Active Dexcom G7 Access Liaison misc use as directed to test blood [...] 08/31/2024 Knee pain 08/31/2024 Malignant neoplastic disease ([facility] V24, [facility]/ CC V28) 08/31/2024 Low serum vitamin B12 08/31/2024 DIANNA (obstructive sleep apnea) 08/31/2024 Osteoarthritis of right knee 08/31/2024 Pulmonary function studies abnormal 08/31/2024 Pleuritic pain 08/31/2024 Rectal polyp 08/31/2024 Reactive depression 08/31/2024 Severe episode of recurrent major depressive disorder, without psychotic features ([facility]/HCC V24, CMS/HCC V28) 08/31/2024 Umbilical hernia without obstruction and without gangrene 08/31/2024 Sinusitis 08/31/2024 Hematemesis 08/31/2024 Upper GI bleeding 08/31/2024 Weight loss 08/31/2024 Type 2 diabetes mellitus (CMS/HCC V24, CMS/HCC V 28) 08/31/2024 Metastatic malignant neuroen docrine tumor to liver ([facility]/HCC V24, [facility]/HCC V28) 08/31/2024 WINSTON (generalized anxiety disorder) 08/31/2024 Grief 08/31/2024 Resolved Problems Problem Noted Date Diagnosed Date Resolved Date Thoracic spine pain 08/31/2024 08/31/19 25 Encounters Date Type Department Care Team Description 03/23/2025 3:30 PM EDT Office Visit [facility] - [place] [address] [place] [address] [place] [phone] Marylu Garcia NP Primary osteoarthritis of right knee (Primary Dx); Primary osteoarthritis of left knee from Last 3 Months Surgical History Surgery Date Site/Laterality Comments LUNG SURGERY LUNG REMOVAL, PARTIAL Left Medical History Medical History Date Comments HTN (hypertension) DX:HTN (hyper tension) T2DM (type 2 diabetes mellit us) (CMS/HCC V24, CMS/HCC V28) DX:T2DM (type 2 diabetes braxton litus) (HCC) Liver cancer (CMS/HCC V24, [facility]/HCC V28) DX:Liver cancer (HCC) Cancer (CMS/HCC V24, [facility]/HCC V28) Hernia of abdominal cavity Diabetes mellitus (CMS/[facility] V 24, [facility] V28) Asthma COPD (chronic obstructive pu lmonary disease) ([facility] V24, [facility] V28) Social History Tobacco Use Types Packs/Day Years [...] 85 08/05/2024 7:54 PM EST Temperature 36.9 C (98.5 F) 08/05/2024 7:54 PM EST Respiratory Rate 18 08/05/2024 7:54 PM EST Oxygen Saturation 96% 08/05/2024 7:54 PM EST Inhaled Oxygen Concentration - - Weight 125 kg (275 lb) 08/05/2024 7:54 PM EST Height 175.3 cm (5' 9 ) 08/05/2024 7:54 PM EST Body Mass Index 40.61 08/05/2024 7:54 PM EST Plan of Treatment Health Maintenance Due Date Last Done Comments Colorectal Cancer Screening: Colonoscopy 1960 Diabetes: Annual Foot Exam 1970 Diabetes: Annual Retina Eye Exam 1970 Hepatitis A Vaccines (1 of 2 - Risk 2-dose series) 1979 HIV Screening 02/26/2024 Hepatitis C Screening 02/26/2024 Social Influencers of Health Screening 02/26/2024 Depression Screening 08/03/2024 Diabetes: Annual Urine Albumin-Creatinine Ratio (uACR) 08/31/2024 COVID-19 Vaccine (5 - Mixed Product risk season) 2025 07/04/2024, 06/24/2021, 10/24/2020, Additional history exists Influenza Vaccine (#1) 2025 , 06/24/2023, 06/21/2021, Additional history exists Diabetes: Blood Sugar Control Test (HGBA1C) 09/16/2025 03/16/2025, 11/16/2024, 07/14/2024 Diabetes: Annual GFR (Glomerular Filtration Rate) 02/25/2026 02/25/2025, 08/05/2024 Hypertension/CHF/CAD Annual BMP Blood Test 02/25/2026 02/25/2025, 08/05/2024 DTaP,Tdap,and Td Vaccines (2 - Td or Tdap) 10/04/2028 10/04/2018 Cholesterol Screening (Lipid Panel) 05/06/2029 05/06/2024 Pneumococcal Vaccine: 50+ Years Completed 12/05/2022, 09/09/2021 RSV Immunization Adult Patients Completed 09/17/2023 Hepatitis B Vaccines Completed 03/16/2025, 10/04/2018, 09/01/2016 Zoster Vaccines Completed 03/20/2025, 12/05/2022 HIB Vaccines Aged Out No longer eligi [...] age to complete this topic Meningococcal B Vaccine Aged Out No l onger eligible based on patient's age to complete this topic RSV Immunization Patients Under 20 months Aged Out No longer eligible based on patient's age to complete this topic Varicella Vaccines Aged Out No longer eligible based on patient's age to complete this topic Procedures Procedure Name Priority Date/Time Associated Diagnosis Comments BASIC METABOLIC PANEL STAT 08/05/2024 8:03 PM EST from Last 3 Months or Most Recently Relevant to Health Maintenance Results * (ABNORMAL) Basic metabolic panel (08/05/2024 8:03 PM EST) Sodium 134 133 - 145 mmol/L LAB CHEMISTRY METHOD 08/05/2024 8:35 PM [facility] Potassium 3.4(L) 3.5 - 5.5 mmol/L LAB CHEMISTRY METHOD 08/05/2024 8:35 PM [facility] Chloride 101 96 - 110 mmol/L LAB CHEMISTRY METHOD 08/05/2024 8:35 PM [facility] CO2 29 21 - 32 mmol/L LAB CHEMISTRY METHOD 08/05/2024 8:35 PM [facility] Anion Gap 4 3 - 11 LAB CHEMISTRY METHOD 08/05/2024 8:35 PM [facility] Glucose 159(H) 70 - 100 mg/dL LAB CHEMISTRY METHOD 08/05/2024 8:35 PM [facility] BUN 13 5 - 25 mg/dL LAB CHEMISTRY METHOD 08/05/2024 8:35 PM [facility] Creatinine 0.86 0.70 - 1.30 mg/dL LAB CHEMISTRY METHOD 08/05/2024 8:35 PM [facility] eGFR 97 >=60 mL/min/1. 73m2 LAB CHEMISTRY METHOD 08/05/2024 8:35 PM [facility] Comment:Calculation based on the Chronic Kidney Disease Epidemiology Collaboration (CKD-EPI) equation refit without adjustment for race. BUN/Creatinine Ratio 15.1 LAB CHEMISTRY METHOD 08/05/2024 8:35 PM [facility] Calcium 8.4(L) 8.5 - 10.5 mg/dL LAB CHEMISTRY METHOD 08/05/2024 8:35 PM [facility] Blood Venous blood specimen / Unknown Venipuncture / Unknown 08/05/2024 8:03 PM EST 08/05/2024 8:09 PM EST Nomi Ashly Rutherford MD LAB BLOOD ORDERABLES Final Resu lt [facility] [address] [place] [address], from Last 3 Months or Most Recently Relevant to Health Maintenance Insurance [id number] Care Teams Assistant Plant Controller Relationship Specialty Start Date End Date Physician, No Pcp PCP - General 08/05/24
--- OUTSIDE RECORDS SUMMARY | 2025-05-31 14:26 | XMS_ITS | Encounter Summary ---
Author Organization [employer] Address 75 [facility] 7t [place] [address] Care Team Providers Care Building Custodial Supervisor Name Role Phone Marleni Whyte Primary Care Provider Joe Garcia PharmD Unavailable [phone] Zuhair Cabral RN Unavailable [phone] Wen Rock Unavailable Karli Mccloud MD Primary Care Provider [phone] Encounter Details Date Type Department Care Team (Late st Contact Info) Description 11/07/2024 Orders Only [facility] MEDICINE [address] [place], [place] [phone] Marleni Whyte ANP [address] [place], [place] [phone] Social History Tobacco Use Types Packs/Day Years [...] Questionnaire-9 Score Answer Date of Assessment Author 11/09/2024 2:33 PM EDT Sun Mantilla * [...] Description 06/15/2025 3:30 PM EST Office Visit [facility] OPTOMETRY [address] [place] [address] Alison Javier, OD [address] [place] [address] 06/22/2025 10:00 AM EST Medication Management [facility] MEDICINE [address] [place] [address] Joe Garcia, PharmD [address] [place] [address] documented as of this encounter Visit Diagnoses Not on filedocumented in this encounter Additional Health Concerns Assessment Noted Time PHQ-9 Depression Total Score: 25 024 11:06 AM EST documented as of this encounter Care Teams Building Custodial Supervisor Relationship Specialty Start Date End Date Marleni Whyte ANP [address] [place] [address] PCP - General Family Medicine 06/23/22 03/21/25 Karli Mccloud MD [address] [place], [place] [phone] PCP - General Family Medicine 03/22/25 Joe Garcia, Adelaida [address] [place], [place] [phone] Pharmacist Internal Medicine 07/04/24 Zuhair Cabral, LUIS [address] [place] [address] Registered Nurse Family Medicine 02/27/25 Wen Rock 02/27/25 Elmer Lisa Older Adult Social Work SpecialistHoop Maker Helper Machine 10/09/23 documented as of this encounter
--- OUTSIDE RECORDS SUMMARY | 2025-05-31 14:26 | XMS_ITS ---
Author Organization [employer] Address 75 [facility] 7t [place] [address] Care Team Providers Care City Plant Supervisor Name Role Phone Joe Garcia PharmD Unavailable [phone] Zuhair Cabral RN Unavailable [phone] Wen Rock Unavailable Karli Mccloud MD Primary Care Provider [phone] [phone] Complex Status:Enrolled (Active) Start date:02/27/2025 Enrollment date:03/01/2025 Enrollment reason:ADT Feed Overview ADT-[facility] ED 02/25/25 Case Team Name Relationship Phone Wen Rock(Responsible Staff) Continued Care and Services Coordination
--- OUTSIDE RECORDS SUMMARY | 2025-05-31 14:26 | XMS_ITS | Encounter Summary ---
Author Organization [employer] Address 75 [facility] 7t [place] [address] Care Team Providers Care Electro Mechanical Assembler Name Role Phone Marleni Whyte Primary Care Provider [phone] Joe Garcia PharmD Unavailable [phone] Zuhair Cabral RN Unavailable [phone] Wen Rock Unavailable Karli Mccloud MD Primary Care Provider [phone] Reason for Visit * Reason Comments Med Refill Encounter Details Date Type Department Care Team (Late st Contact Info) Description 06/22/2023 Refill [facility] MEDICINE [address] [place], [place] [phone] Marleni Whyte ANP [address] [place], [place] [phone] Primary osteoarthritis of right knee Social History [...] Description 06/15/2025 3:30 PM EST Office Visit [facility] OPTOMETRY [address] [place] [address] Alison Javier, OD [address] [place] [address] 06/22/2025 10:00 AM EST Medication Management [facility] MEDICINE [address] [place] [address] Joe Garcia, PharmD [address] [place] [address] documented as of this encounter Visit Diagnoses Diagnosis Primary osteoarthritis of right knee documented in this encounter Additional Health Concerns Assessment Noted Time PHQ-9 Depression Total Score: 0 08/20/19 23 2:04 PM EST documented as of this encounter Care Teams Electro Mechanical Assembler Relationship Specialty Start Date End Date Marleni Whyte ANP [address] [place] [address] PCP - General Family Medicine 06/23/22 03/21/25 Karli Mccloud MD [address] [place] [address] PCP - General Family Medicine 03/22/25 Joe Garcia, ErickD [address] [place] [address] Pharmacist Internal Medicine 07/04/24 Zuhair Cabral, RN [address] [place] [address] Registered Nurse Family Medicine 02/27/25 Wen Rock 02/27/25 Elmer Lisa Multifocal Lens AssemblerCrack Off Person 10/09/23 documented as of this encounter
--- OUTSIDE RECORDS SUMMARY | 2025-05-31 14:26 | XMS_ITS ---
Author Organization [employer] Address 75 [facility] 7t [place] [address] Care Team Providers Care Electronic Warfare Linguist Name Role Phone Joe Garcia PharmD Unavailable [phone] Zuhair Cabral RN Unavailable [phone] Wen Rock Unavailable Karli Mccloud MD Primary Care Provider [phone] Complex Status:Enrolled (Active) Start date:02/27/2025 Enrollment date:03/22/2025 Enrollment reason:ADT Feed Overview ADT-[facility] ED 02/25/25 Case Team Name Relationship Phone Zuhair Cabral RN(Responsible Staff) Registered N [facility] [phone] Continued Care and Services Coordination
--- OUTSIDE RECORDS SUMMARY | 2025-05-31 14:26 | XMS_ITS | Encounter Summary ---
Author Organization [employer] Address [address] [facility] [address] [place] [address] Care Team Providers Care Junk Dealer Name Role Phone Marleni Whyte Primary Care Provider Joe Garcia PharmD Unavailable [phone] Zuhair Cabral RN Unavailable [phone] Wen Rock Unavailable Karli Mccloud MD Primary Care Provider [phone] Reason for Visit * Reason Comments Med Refill Encounter Details Date Type Department Care Team (Late st Contact Info) Description 09/14/2024 Refill [facility] MEDIC[facility] [address] [place], [place] [phone] Marleni Whyte ANP [address] [place] [address] Primary osteoarthritis of right knee Social History [...] Description 06/15/2025 3:30 PM EST Office Visit [facility] OPTOMETRY [address] [place] [address] Yaya, Alison, OD [address] [place] [address] 06/22/2025 10:00 AM EST Medication Management [facility] [address] [place] [address] Joe Garcia, PharmD [address] [place] [address] documented as of this encounter Visit Diagnoses Diagnosis Primary osteoarthritis of right knee documented in this encounter Additional Health Concerns Assessment Noted Time PHQ-9 Depression Total Score: 25 024 11:06 AM EST documented as of this encounter Care Teams Junk Dealer Relationship Specialty Start Date End Date Marleni Whyte ANP [address] [place] [address] PCP - General Family Medicine 06/23/22 03/21/25 Karli Mccloud MD [address] [place] [id number] PCP - General Family Medicine 03/22/25 Joe Garcia, ErickD [address] [place] [address] Pharmacist Internal Medicine 07/04/24 Zuhair Cabral, RN [address] [place] [phone] Registered Nurse Family Medicine 02/27/25 Wen Rock 02/27/25 Elmer Lisa Twisting Press OperatorChemical Treatment Operator 10/09/23 documented as of this encounter
--- OUTSIDE RECORDS SUMMARY | 2025-05-31 14:26 | XMS_ITS | Encounter Summary ---
Author Organization [employer] Address [address] [facility] [address] [place] [address] Care Team Providers Care Hide Worker Name Role Phone Marleni Whyte Primary Care Provider Joe Garcia PharmD Unavailable [phone] Zuhair Cabral RN Unavailable [phone] Wen Rock Unavailable Karli Mccloud MD Primary Care Provider Reason for Visit * Reason Comments Med Refill Encounter Details Date Type Department Care Team (Late st Contact Info) Description 11/08/2024 Refill [facility] MED[facility]INE [address] [place], [place] [phone] Marleni Whyte ANP [address] [place], [place] [phone] nursing home (current) use of opiate analgesic; Arthritis of both knees Social History Tobacco Use Types Packs/Day Years Used Date Smoking Tobacco: Never Passive Smoke Exposure: Never Smokeless Tobacco: Never Alcohol Use Standard Drinks/Week Comments Not Currently 0 (1 standard drink = 0.6 oz pur e alcohol) Depression Answer Date Recorded Patient Health Questionnaire-9 Score 23 11/09/2024 Patient Health Questionnaire-9 Score 11/09/2024 Last PHQ-9: Questionnaire Data Not on [...] Description 06/15/2025 3:30 PM EST Office Visit [facility] OPTOMETRY [address] [place] [address] Alison Javier, OD [address] [place] [address] 06/22/2025 10:00 AM EST Medication Management [facility] [address] [place] [address] Joe Garcia, PharmD [address] [place] [address] documented as of this encounter Visit Diagnoses Diagnosis terminologist (current) use of opiate analgesic Arthritis of both knees documented in this encounter Additional Health Concerns Assessment Noted Time PHQ-9 Depression Total Score: 25 024 11:06 AM EST documented as of this encounter Care Teams Hide Worker Relationship Specialty Start Date End Date Marleni Whyte ANP [address] [place] [address] PCP - General Family Medicine 06/23/22 03/21/25 Karli Mccloud MD [address] [place] [address] [phone] PCP - General Family Medicine 03/22/25 Joe Garcia, ErickD [address] [place] [address] [phone] Pharmacist Internal Medicine 07/04/24 Zuhair Cabral, LUIS [address] [place] [id number] Registered Nurse Family Medicine 02/27/25 Wen Rock 02/27/25 Elmer Lisa Project Manager/Team CoachMonogram Machine Operator 10/09/23 documented as of this encounter
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
--- OUTSIDE RECORDS SUMMARY | 2025-05-31 14:26 | XMS_ITS | Encounter Summary ---
Author Organization [employer] Address [address] [facility] [address] [place] [address] Care Team Providers Care Grocery Carrier Name Role Phone Marleni Whyte Primary Care Provider [phone] Joe Garcia PharmD Unavailable [phone] Zuhair Cabral RN Unavailable [phone] Wen Rock Unavailable Karli Mccloud MD Primary Care Provider [phone] Reason for Visit * Reason Comments Med Refill Encounter Details Date Type Department Care Team (Late st Contact Info) Description 06/02/2023 Refill [facility] [address] [place], [place] [phone] Marleni Whyte ANP [address] [place], [place] [phone] Other chronic pain Social History Tobacco Use [...] Description 06/15/2025 3:30 PM EST Office Visit [facility] [address] [place] [address] Alison Javier, OD [address] [place] [address] 06/22/2025 10:00 AM EST Medication Management [facility] [address] [place] [address] Joe Garcia, PharmD [address] [place] [address] documented as of this encounter Visit Diagnoses Diagnosis Other chronic pain documented in this encounter Additional Health Concerns Assessment Noted Time PHQ-9 Depression Total Score: 0 08/20/19 23 2:04 PM EST documented as of this encounter Care Teams Grocery Carrier Relationship Specialty Start Date End Date Marleni Whyte ANP [address] [place] [address] PCP - General Family Medicine 06/23/22 03/21/25 Karli Mccloud MD [address] [place] [address] PCP - General Family Medicine 03/22/25 Joe Garcia, PharmD [address] [place] [address] Pharmacist Internal Medicine 07/04/24 Zuhair Cabral, RN [address] [place] [address] Registered Nurse Family Medicine 02/27/25 Wen Rock 02/27/25 Elmer Lisa Crane OilerAqueduct And Reservoir Keeper 10/09/23 documented as of this encounter
--- OUTSIDE RECORDS SUMMARY | 2025-05-31 14:26 | XMS_ITS | Encounter Summary ---
Author Organization [employer] Address 75 [facility] 7t [place] [address] Care Team Providers Care Cna Ltc Name Role Phone Marleni Whyte Primary Care Provider Joe Garcia PharmD Unavailable [phone] Zuhair Cabral RN Unavailable [phone] Wen Rock Unavailable Karli Mccloud MD Primary Care Provider [phone] Reason for Visit * Reason Onset Date Comments Med Refill 05/29/2023 Encounter Details Date Type Department Care Team (Late st Contact Info) Description 05/29/2023 Telephone [facility] MEDICINE 230 [place], [place] [phone] Marleni Whyte ANP 230 [place], [place] [phone] Med Refill Social History Tobacco Use Types Packs/Day Years Used Date Smoking Tobacco: Never Passive Smoke Exposure: Never Smokeless Tobacco: Never Alcohol Use Standard Drinks/Week Comments Not Currently 0 (1 standard drink = 0.6 oz pur e alcohol) Depression Answer Date Recorded Patient Health Questionnaire-9 Score 0 08/20/2022 Housing Stability Answer Date Recorded What is your housing situation today? I have [facility] [place] 05/18/[address] you [...] of stock. * Telephone Encounter - Félix Bicrh - 05/29/2023 3:57 PM EDT Tc from patient requesting medication refill for oxyCODONE (Roxicodone) 5 MG immediate release tablet. documented in this encounter Plan of Treatment Upcoming Encounters Date Type Department Care Team (Late st Contact Info) Description 06/15/2025 3:30 PM EST Office Visit [facility] OPTOMETRY [address] [place] [address] Alison Javier, OD 230 [place] [address] 06/22/2025 10:00 AM EST Medication Management [facility] MEDICINE 230 [place] [address] Joe Garcia, PharmD 230 [place] [address] documented as of this encounter Visit Diagnoses Not on filedocumented in this encounter Additional Health Concerns Assessment Noted Time PHQ-9 Depression Total Score: 0 08/20/19 23 2:04 PM EST documented as of this encounter Care Teams Cna Ltc Relationship Specialty Start Date End Date Marleni Whyte ANP [address] [place] [address] PCP - General Family Medicine 06/23/22 03/21/25 Karli Mccloud MD [address] [place] [address] [phone] PCP - General Family Medicine 03/22/25 Joe Garcia, ErickD [address] [place] [address] Pharmacist Internal Medicine 07/04/24 Zuhair Cabral, LUIS [address] [place] [address] Registered Nurse Family Medicine 02/27/25 Wen Rock 02/27/25 Elmer Lisa Health Information ProviderWheelchair Van Operator First Responder 10/09/23 documented as of this encounter
--- OUTSIDE RECORDS SUMMARY | 2025-05-31 14:26 | XMS_ITS | Encounter Summary ---
Author Organization [employer] Address [address] [facility] 7t [place] [address] Care Team Providers Care Court Officer Name Role Phone Marleni Whyte Primary Care Provider [phone] Joe Garcia PharmD Unavailable [phone] Zuhair Cabral RN Unavailable [phone] Wen Rock Unavailable Karli Mccloud MD Primary Care Provider Reason for Visit * Reason Onset Date Comments Med Refill 11/07/2024 Encounter Details Date Type Department Care Team (Late st Contact Info) Description 11/07/2024 Telephone [facility] MEDICINE 230 [place], [place] [phone] Marleni Whyte ANP 230 [place], [place] [phone] Med Refill Social History Tobacco Use Types Packs/Day Years Used Date Smoking Tobacco: Never Passive Smoke Exposure: Never Smokeless Tobacco: Never Alcohol Use Standard Drinks/Week Comments Not Currently 0 (1 standard drink = 0.6 oz pur e alcohol) Depression Answer Date Recorded Patient Health Questionnaire-9 Score 11/09/2024 Patient Health Questionnaire-9 Score 11/09/2024 Last [...] 6 11/09/2024 2:33 PM EDT Susana Pierce ctoria * Little interest or pleasure in doing [...] Sun Mantilla documented as of this encounter Miscellaneous Notes * Telephone Encounter - Angela Prasad - 11/07/2024 12:46 PM EDT TC from pt requesting medication refill. 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 documented in this encounter Plan of Treatment Upcoming Encounters Date Type Department Care Team (Late st Contact Info) Description 06/15/2025 3:30 PM EST Office Visit [facility] OPTOMETRY [address] [place] [address] Alison Javier, OD 230 [place] [address] 06/22/2025 10:00 AM EST Medication Management [facility] MEDICINE 230 [place] [address] Joe Garcia, PharmD [address] [place] [address] documented as of this encounter Visit Diagnoses Not on filedocumented in this encounter Additional Health Concerns Assessment Noted Time PHQ-9 Depression Total Score: 25 024 11:06 AM EST documented as of this encounter Care Teams Court Officer Relationship Specialty Start Date End Date Marleni Whyte ANP [address] [place] [address] PCP - General Family Medicine 06/23/22 03/21/25 Karli Mclcoud MD [address] [place] [address] [phone] PCP - General Family Medicine 03/22/25 Joe Garcia, PharmD [address] [place] [address] Pharmacist Internal Medicine 07/04/24 Zuhair Cabral, RN [address] [place] [address] Registered Nurse Family Medicine 02/27/25 Wen Rock 02/27/25 Elmer Lisa Hand TapperAnesthesiology Tech 10/09/23 documented as of this encounter
--- OUTSIDE RECORDS SUMMARY | 2025-05-31 14:26 | XMS_ITS | Encounter Summary ---
Author Organization [employer] Address 75 [facility] 7t [place] [address] Care Team Providers Care Window Glazier Name Role Phone Marleni Whyte Primary Care Provider Joe Garcia PharmD Unavailable [phone] Zuhair Cabral RN Unavailable [phone] Wen Rock Unavailable Karli Mccloud MD Primary Care Provider [phone] Reason for Visit * Reason Comments Med Refill Encounter Details Date Type Department Care Team (Late st Contact Info) Description 06/02/2023 Refill [facility] CHC MED & PEDS [address] [place], [place] [phone] Marleni Whyte ANP 230 [place], [place] [phone] Other chronic pain Social History Tobacco Use [...] Description 06/15/2025 3:30 PM EST Office Visit [facility] OPTOMETRY [address] [place] [address] Alison Javier, OD 230 [place] [address] 06/22/2025 10:00 AM EST Medication Management [facility] MEDICINE 230 [place] [address] Joe Garcia, PharmD 230 [place] [address] documented as of this encounter Visit Diagnoses Diagnosis Other chronic pain documented in this encounter Additional Health Concerns Assessment Noted Time PHQ-9 Depression Total Score: 0 08/20/19 23 2:04 PM EST documented as of this encounter Care Teams Window Glazier Relationship Specialty Start Date End Date Marleni Whyte ANP 230 [place] [address] PCP - General Family Medicine 06/23/22 03/21/25 Karli Mccloud MD 230 [place] [address] PCP - General Family Medicine 03/22/25 Joe Garcia, PharmD [address] [place] [address] Pharmacist Internal Medicine 07/04/24 Zuhair Cabral, RN 505 [place] [address] Registered Nurse Family Medicine 02/27/25 Wen Rock 02/27/25 Elmer Lisa Noodle Press OperatorSupervisor Hospitality House 10/09/23 documented as of this encounter
--- OUTSIDE RECORDS SUMMARY | 2025-05-31 14:26 | XMS_ITS | Encounter Summary ---
Author Organization [employer] Address 75 [facility] 7t [place] [address] Care Team Providers Care Asset Administrator Name Role Phone Marleni Whyte Primary Care Provider Joe Garcia PharmD Unavailable [phone] Zuhair Cabral RN Unavailable [phone] Wen Rock Unavailable Karli Mccloud MD Primary Care Provider [phone] Reason for Visit * Reason Comments Med Refill Encounter Details Date Type Department Care Team (Late st Contact Info) Description 06/01/2023 Refill [facility] CHC MED & PEDS [address] [place], [place] [phone] Marleni Whyte ANP 230 [place], [place] [phone] Other chronic pain Social History Tobacco Use [...] PM EDT TC to pt to schedule [employer] [place], no answer. Call got disconnected x2, unable to lvm documented in this encounter Plan of Treatment Upcoming Encounters Date Type Department Care Team (Late st Contact Info) Description 06/15/2025 3:30 PM EST Office Visit [facility] OPTOMETRY [address] [place] [address] Yaya, Alison, OD 230 [place] [address] 06/22/2025 10:00 AM EST Medication Management [facility] MEDICINE 230 [place] [address] Joe Garcia, PharmD 230 [place] [address] documented as of this encounter Visit Diagnoses Diagnosis Other chronic pain documented in this encounter Additional Health Concerns Assessment Noted Time PHQ-9 Depression Total Score: 0 08/20/19 23 2:04 PM EST documented as of this encounter Care Teams Asset Administrator Relationship Specialty Start Date End Date Marleni Whyte ANP 230 [place], [place] [phone] PCP - General Family Medicine 06/23/22 03/21/25 Karli Mccloud MD 230 [place], [place] [phone] PCP - General Family Medicine 03/22/25 Joe Garcia, ErickD [address] [place] [address] [phone] Pharmacist Internal Medicine 07/04/24 Zuhair Cabral, RN [address] [place] [address] [phone] Registered Nurse Family Medicine 02/27/25 Wen Rock 02/27/25 Elmer Lisa BookkeeperSupervisor [employer] 10/09/23 documented as of this encounter
--- OUTSIDE RECORDS SUMMARY | 2025-05-31 14:27 | XMS_ITS | Encounter Summary ---
Author Organization [employer] Address 75 [facility] 7t [place] [address] Care Team Providers Care Ball Winder Name Role Phone Garcia Jeo PharmD Unavailable Zuhair Cabral RN Unavailable [phone] Wen Rock Unavailable Karli Mccloud MD Primary Care Provider [phone] Reason for Visit * Reason Onset Date Comments chart prep 05/30/2025 Encounter Details Date Type Department Care Team (Late st Contact Info) Description 05/30/2025 Telephone [facility] MEDICINE 230 [place], [place] [phone] Karli Mccloud MD 230 [place], [place] [phone] chart prep Social History Tobacco Use Types Packs/Day Years [...] encounter Miscellaneous Notes * Telephone Encounter - Lizandro Mckeon [place] - 05/30/2025 3:13 PM EDT Chart Prep Labs: done Images: done Referrals: complete Vaccines due: Hep A Screenings: foot exam Overdue care gaps: Glucose and Disability screen documented in this encounter Plan of Treatment Upcoming Encounters Date Type Department Care Team ([facility] st Contact Info) Description 06/15/2025 3:30 PM EST Office Visit [facility] OPTOMETRY [address] [place] [address] [phone] Alison Javier, OD 230 [place] [address] 06/22/2025 10:00 AM EST Medication Management [facility] MEDICINE 230 [place] [address] Joe Garcia, PharmD 230 [place] [address] documented as of this encounter Visit Diagnoses Not on filedocumented in this encounter Additional Health Concerns Assessment Noted Time PHQ-9 Depression Total Score: 19 025 2:58 PM EDT documented as of this encounter Care Teams Ball Winder Relationship Specialty Start Date End Date Karli Mccloud MD 230 [place] [address] PCP - General Family Medicine 03/22/25 Joe Garcia, PharmD [address] [place] [address] Pharmacist Internal Medicine 07/04/24 Zuhair Cabral, LUIS [address] [place] [address] Registered Nurse Family Medicine 02/27/25 Wen Rock 02/27/25 Elmer Lisa Personal Computer Network EngineerBrim Pouncer Machine Operator 10/09/23 documented as of this encounter
--- OUTSIDE RECORDS SUMMARY | 2025-05-31 14:27 | XMS_ITS | Encounter Summary ---
Author Organization [employer] Address 75 [facility] 7t [place] [address] Care Team Providers Care Trouble Operator Name Role Phone Marleni Whyte Primary Care Provider Joe Garcia PharmD Unavailable [phone] Zuhair Cabral RN Unavailable [phone] Wen Rock Unavailable Karli Mccloud MD Primary Care Provider Reason for Visit * Reason Comments Med Refill Encounter Details Date Type Department Care Team (Late st Contact Info) Description 10/06/2022 Refill [facility] MEDICINE 230 [place], [place] [phone] Marleni Whyte ANP 230 [place], [place] [phone] Other chronic pain Social History Tobacco Use [...] Description 06/15/2025 3:30 PM EST Office Visit [facility] OPTOMETRY [address] [place] [address] Alison Javier, OD 230 [place] [address] 06/22/2025 10:00 AM EST Medication Management [facility] MEDICINE 230 [place] [address] Joe Garcia, PharmD 230 [place] [address] documented as of this encounter Visit Diagnoses Diagnosis Other chronic pain documented in this encounter Additional Health Concerns Assessment Noted Time PHQ-9 Depression Total Score: 0 08/20/19 23 2:04 PM EST documented as of this encounter Care Teams Trouble Operator Relationship Specialty Start Date End Date Marleni Whyte ANP 230 [place] [address] PCP - General Family Medicine 06/23/22 03/21/25 Karli Mccloud MD [address] [place] [address] PCP - General Family Medicine 03/22/25 Joe Garcia, PharmD 230 [place] [address] Pharmacist Internal Medicine 07/04/24 Zuhair Cabral, RN [address] [place] [address] Registered Nurse Family Medicine 02/27/25 Wen Rock 02/27/25 Elmer Lisa Tank Storage SupervisorCounselor Education Professor 10/09/23 documented as of this encounter
--- OUTSIDE RECORDS SUMMARY | 2025-05-31 14:27 | XMS_ITS | Encounter Summary ---
Author Organization [employer] Address 75 [facility] 7t [place] [address] Care Team Providers Care Home Care Chaplain Name Role Phone Marleni Whyte Primary Care Provider [phone] Joe Garcia PharmD Unavailable Zuhair Cabral RN Unavailable [phone] Wen Rock Unavailable Karli Mccloud MD Primary Care Provider Reason for Visit * Reason Comments Med Refill Encounter Details Date Type Department Care Team (Late st Contact Info) Description 11/06/2022 Refill [facility] MEDICINE 230 [place], [place] [phone] Marleni Whyte ANP 230 [place], [place] [phone] Other chronic pain Social History Tobacco Use [...] 3:30 PM EST Office Visit [facility] OPTOMETRY [address] [place] [address] Alison Javier, OD 230 [place] [address] 06/22/2025 10:00 AM EST Medication Management [facility] MEDICINE 230 [place] [address] Joe Garcia, PharmD 230 [place] [address] documented as of this encounter Visit Diagnoses Diagnosis Other chronic pain documented in this encounter Additional Health Concerns Assessment Noted Time PHQ-9 Depression Total Score: 0 08/20/19 2:04 PM EST documented as of this encounter Care Teams Home Care Chaplain Relationship Specialty Start Date End Date Marleni Whyte ANP 230 [place] [address] PCP - General Family Medicine 06/23/22 03/21/25 Karli Mccloud MD [address] [place] [address] PCP - General Family Medicine 03/22/25 Joe Garcia, PharmD 230 [place] [address] Pharmacist Internal Medicine 07/04/24 Zuhair Cabral, RN [address] [place] [address] [phone] Registered Nurse Family Medicine 02/27/25 Wen Rock 02/27/25 Elmer Lisa Raker Buffing WheelTester Compressed Gases 10/09/23 documented as of this encounter
--- OUTSIDE RECORDS SUMMARY | 2025-05-31 14:27 | XMS_ITS | Encounter Summary ---
Author Organization [employer] Address 75 [facility] 7t [place] [address] Care Team Providers Care Coding Team Lead Name Role Phone Marleni Whyte Primary Care Provider Joe Garcia PharmD Unavailable Zuhair Cabral RN Unavailable [phone] Wen Rock Unavailable Karli Mccloud MD Primary Care Provider Reason for Visit * Reason Comments Med Refill Encounter Details Date Type Department Care Team (Late st Contact Info) Description 11/06/2022 Refill [facility] MEDICINE 230 [place], [place] [phone] Marleni Whyte ANP 230 [place], [place] [phone] Other chronic pain Social History Tobacco Use [...] Description 06/15/2025 3:30 PM EST Office Visit [facility] OPTOMETRY [address] [place] [address] Alison Javier, OD 230 [place] [address] 06/22/2025 10:00 AM EST Medication Management [facility] MEDICINE 230 [place] [address] Joe Garcia, PharmD 230 [place] [address] documented as of this encounter Visit Diagnoses Diagnosis Other chronic pain documented in this encounter Additional Health Concerns Assessment Noted Time PHQ-9 Depression Total Score: 0 08/20/19 2:04 PM EST documented as of this encounter Care Teams Coding Team Lead Relationship Specialty Start Date End Date Marleni Whyte ANP 230 [place] [address] PCP - General Family Medicine 06/23/22 03/21/25 Karli Mccloud MD [address] [place] [address] PCP - General Family Medicine 03/22/25 Joe Garcia, PharmD 230 [place] [address] Pharmacist Internal Medicine 07/04/24 Zuhair Cabral, RN [address] [place] [address] [phone] Registered Nurse Family Medicine 02/27/25 Wen Rock 02/27/25 Elmer Lisa Screen Printing Equipment SetterRetail Project Merchandiser 10/09/23 documented as of this encounter
--- OUTSIDE RECORDS SUMMARY | 2025-05-31 14:27 | XMS_ITS | Encounter Summary ---
Author Organization [employer] Address 75 [facility] 7t [place] [address] Care Team Providers Care Manager Inpatient Name Role Phone Jose Joe PharmD Unavailable Zuhair Cabral RN Unavailable [phone] Wen Rock Unavailable Karli Mccloud MD Primary Care Provider [phone] Reason for Visit * Reason Comments Med Refill Encounter Details Date Type Department Care Team (Late st Contact Info) Description 05/31/2025 Refill [facility] MEDICINE 230 [place], [place] [phone] Marleni Whyte, ANP 230 [place], [place] [phone] Social History Tobacco Use Types Packs/Day Years [...] [facility] OPTOMETRY [address] [place] [address] Alison Javier, OD 230 [place] [address] 06/22/2025 10:00 AM EST Medication Management [facility] MEDICINE 230 [place] [address] Joe Garcia, PharmD 230 [place] [address] documented as of this encounter Visit Diagnoses Not on filedocumented in this encounter Additional Health Concerns Assessment Noted Time PHQ-9 Depression Total Score: 19 025 2:58 PM EDT documented as of this encounter Care Teams Manager Inpatient Relationship Specialty Start Date End Date Karli Mccloud MD 230 [place], [place] [phone] PCP - General Family Medicine 03/22/25 Joe Garcia, ErickD 230 [place] [address] Pharmacist Internal Medicine 07/04/24 Zuhair Cabral, RN [address] [place] [address] Registered Nurse Family Medicine 02/27/25 Wen Rock 02/27/25 Elmer Lisa Mathematical PhysicistUpsetter Setter Up 10/09/23 documented as of this encounter
--- OUTSIDE RECORDS SUMMARY | 2025-05-31 14:27 | XMS_ITS | Encounter Summary ---
Author Organization [employer] Address 75 [facility] 7t [place] [address] Care Team Providers Care Depot Manager Name Role Phone Jose Joe PharmD Unavailable [phone] Zuhair Cabral RN Unavailable [phone] Wen Rock Unavailable Karli Mccloud MD Primary Care Provider [phone] Reason for Visit * Reason Comments Care Management C3CM- F/U call # 1 ( 2nd attempt)/LVM Encounter Details Date Type Department Care Team ([facility] st Contact Info) Description 05/29/2025 Patient Outreach [facility] MED & PEDS [address] [place], [place] [phone] Karli Mccloud MD 230 [place] [address] Care Management (C3CM- F/U call # 1 (2nd attempt)/LVM) Social History Tobacco Use Types Packs/Day Years Used Date Smoking Tobacco: Never Passive Smoke Exposure: Never Smokeless Tobacco: Never Alcohol Use Standard Drinks/Week Comments Not Currently 0 (1 standard drink = 0.6 oz pur e alcohol) Depression Answer Date Recorded Patient Health Questionnaire-9 Score 19 03/22/2025 Patient Health Questionnaire-9 Score 03/22/2025 Last [...] the past 12 months, has t he [employer], gas, oil or water [facility] threatened to shut off services in your [...] as of this encounter Progress Notes * Zuhair Cabral RN - 05/29/2025 9:17 AM EDT CM Zuhair Cabral RN placed outbound call to patient for follow up call. No answer at this time. LVMintroducing myself from [facility] CM Department. Requested call back. Reminded of upcoming appointment with new PCP on 05/31/25 at 2 PM. CM reinforced direct contact information for any additional questions or concerns. Education provided on [facility] located inLobby of [facility]. Patient provided with after-hours line for [facility], , which offer night time triage service and option to transfer to traffic operations manager provider if needed. CM will attempt another follow up call within 10 days. documented in this encounter Plan of Treatment Upcoming Encounters Date Type Department Care Team (Late st Contact Info) Description 06/15/2025 3:30 PM EST Office Visit [facility] OPTOMETRY [address] [place], [place] [phone] YayaAlison barrientos, OD 230 [place] [address] 06/22/2025 10:00 AM EST Medication Management [facility] MEDICINE 230 [place] [address] Joe Garcia, PharmD 230 [place] [address] documented as of this encounter Visit Diagnoses Not on filedocumented in this encounter Additional Health Concerns Assessment Noted Time PHQ-9 Depression Total Score: 19 025 2:58 PM EDT documented as of this encounter Care Teams Depot Manager Relationship Specialty Start Date End Date Karli Mccloud MD 230 [place] [address] PCP - General Family Medicine 03/22/25 Joe Garcia, PharmD 230 [place] [address] Pharmacist Internal Medicine 07/04/24 Zuhair Cabral, RN [address] [place] [address] Registered Nurse Family Medicine 02/27/25 Wen Rock 02/27/25 Elmer Lisa Director Of TestingStraw Hat Presser 10/09/23 documented as of this encounter
== END 2025-05-31 11:44 | disposition home or self-care (01) ==
LOC: HO.HPS 11:20
PROVIDERS: PCP Nurse Practitioner Primary Care; Visit Provider Hospitalist
DX: G47.33 Obstructive sleep apnea (adult) (pediatric) (principal); Z99.89 Dependence on other enabling machines and devices; J45.40 Moderate persistent asthma, uncomplicated; R06.09 Other forms of dyspnea; C22.0 Liver cell carcinoma; J44.9 Chronic obstructive pulmonary disease, unspecified
CPT/HCPCS: 99214

== ENCOUNTER → 2025-05-31 11:19 | Outpatient (BNVA) | payer MEDICAID, SELFPAY | PROVIDERS: PCP Nurse Practitioner Primary Care; Visit Provider Hospitalist | DX: G47.33 Obstructive sleep apnea (adult) (pediatric) (principal); J44.89 Other specified chronic obstructive pulmonary disease; J45.40 Moderate persistent asthma, uncomplicated; R06.09 Other forms of dyspnea; Z99.89 Dependence on other enabling machines and devices | CPT/HCPCS: 99212 ==

== ENCOUNTER 2025-06-22 18:19 | Outpatient (REF) | payer MEDICAID, SELFPAY ==
--- OUTSIDE RECORDS SUMMARY | 2025-06-22 10:30 | XMS_ITS | Encounter Summary ---
Author Organization [employer] Address 75 [facility] 7t [place] [address] Care Team Providers Care Asbestos Handler Name Role Phone Joe Garcia PharmD Unavailable [phone] Karli Mccloud MD Primary Care Provider [phone] Reason for Visit * Reason Comments ME[employer] Renewal Encounter Details Date Type Department Care Team (Latest Contact Info) Description 06/22/2025 10:30 AM EST Clinical Support [facility] MEDICINE [address] [place] [address] Tanya Cope RN Long-term current use of opiate analgesic (Primary Dx) Social History Tobacco Use Types [...] the past 12 months, has t he [employer], gas, oil or water company threatened to [...] Progress Notes * Tanya Cope RN - 06/22/2025 10:30 AM EST vSUBJECTIVE: Zuhair Maldonado is a 64 y.o. year old male who presents for MECH[employer]IC [employer]UCK Renewal Preferred language for medical information: [place] Zuhair Maldonado does not report adherence to Oxycodone 5 mg, take 1 tablet every 24 hours PRN,last refilled 05/31/2025. Pt stated that he takes between 0-2 doses a day, usually only 1 a day, but when his knee pain is bad he will take a 2nd dose The patient last took Oxycodone on: 06/22/2025 Medication is: 75% % effective at alleviating pain. 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 Vital Signs Pain Score: 3 Pain Loc: Knee Pain Education: Yes Additional pain site: both knee's L>R Last PCP visit: 05/31/2025 BPI completed on: 06/22/2025 , pain severity score: 9, activity interference score: 9 BPI completed on: 05/04/2024 , pain severity score: 8, activity interference score: 10 Controlled substance agreement signed: Controlled Substance Agreement 06/22/2025 Controlled substance agreement: signed and up to date ME[employer] Tier: 1, X 3 visits, if WNL, then Tier 2 Current Medications[1] Smoking status: Denies ETOH use: Denies Illicit substances: Denies Marijuana use: Denies Lab Results Component Value Date POCTHC Negative 06/22/2025 POCCOCAINEUR Positive (A) 06/22/2025 POCOPIATEUR Negative 06/22/2025 DOAUR Negative 06/22/2025 POCAMPHETAMI Negative 06/22/2025 POCBENZODIUR Negative 06/22/2025 POCBARBSCRN Negative 06/22/2025 POCMETHADOUR Negative 06/22/2025 POCBUPSCRN Negative 06/22/2025 POCTCAUR Negative 06/22/2025 POCMDMAUR Negative 06/22/2025 POCOXYCODONE Positive (A) 06/22/2025 POCPHENCYCUR Negative 06/22/2025 PROPOXUR Negative 06/22/2025 FENTANYLURIN Negative 06/22/2025 Reviewed UTOX results from today. Discussed the dangers of street drugs especially when taking withhis narcotic. Pt stated he does not use cocaine. He said he has a friend who was in the back of hiscar smoking crack and that might be how he got it into his system. Advised patient I will send out for confirmation and call him if the results are abnormal. Reviewed with patient at length the [employer] Agreement, emphasized section about notifying your provider of all the drugs he's taking, including illegal drugs. Pt again denied using cocaine. ASSESSMENT: Encounter Diagnosis Name Primary? Long-term current use of opiate analgesic Yes PLAN: Information on pain group given: Yes Information on acupuncture given: Yes Narcan education provided: Yes Narcan prescription: active Will update PCP on BPI scoring, UTOX results and send oxycodone refill request. Controlled substance agreement extensively reviewed and signed. A copy was given to the patient. Zuhair Maldonado will continue taking medications as prescribed and has verbalized understanding of care plan. Future Appointments Date Time Provider Department Center 07/07/2025 10:00 AM Joe Garcia PharmD MEDICINE [facility] 08/07/2025 9:30 AM Tanya Cope RN MEDICINE [facility] 09/05/2025 9:30 AM Tanya Cope RN MEDICINE [facility] Tanya Cope RN [1] Current Outpatient Medications: naloxone (Narcan) 4 mg/0.1 mL nasal spray, FOR SUSPECTED OPIOID OVERDOSE. SPRAY 0.1mL IN ONE NOSTRIL. REPEAT IN ALTERNATE NOSTRIL 2-3 MINUTES IF NEEDED. SEEK MEDICAL ATTENTION IMMEDIATELY EVEN IF PATIENT RESPONDS., Disp: 2 each, Rfl: 1 oxyCODONE (Roxicodone) 5 MG immediate release tablet, Take 1 tablet (5 mg) by mouth if needed at bedtime for severe pain., Disp: 30 tablet, Rfl: 0 albuterol 108 (90 Base) MCG/ACT inhaler, Inhale 2 puffs every 4 (four) hours if needed., Disp: , Rfl: Alcohol Swabs (Alcohol Prep) 70 % pads, USE DIRECTED, Disp: 100 each, Rfl: 11 Aspirin Low Dose 81 MG EC tablet, TAKE 1 TABLET BY MOUTH EVERY MORNING, Disp: 90 tablet, Rfl: 1 Blood Glucose Monitoring Suppl (FreeStyle [place] Lite) w/Device kit, Use to test blood sugar up tothree times daily as needed for CGM failure of hypoglycemia., Disp: 1 kit, Rfl: 0 Blood Pressure kit, Use to check your blood pressure daily, Disp: 1 kit, Rfl: 0 buPROPion XL (Wellbutrin XL) 150 MG 24 hr tablet, TAKE 1 TABLET BY MOUTH EVERY MORNING, Disp: 90 tablet, Rfl: 3 cholecalciferol VITAMIN D (Vitamin D-3) 50 MCG (1999 UT) tablet, TAKE 1 TABLET BY MOUTH EVERY EVENING, Disp: 90 tablet, Rfl: 1 Continuous Glucose Water Resource Consultant (Dexcom G7 Water Resource Consultant) device, Apply 1 Device topically Once per day. Useto read sensor as directed, Disp: 1 each, Rfl: 0 Continuous Glucose Sensor (Dexcom G7 Sensor) [facility] [place], USE DIRECTED TO TEST BLOOD SUGAR CHANGE EVERY10 DAYS, Disp: 3 each, Rfl: 3 cyanocobalamin (Vitamin B-12) 1000 MCG/ML injection, INJECT 1 ML INTRAMUSCULARLY EVERY MONTH, Disp:3 mL, Rfl: 1 empagliflozin (Jardiance) 25 MG, Take 1 tablet (25 mg) by mouth Once per day., Disp: 30 tablet, Rfl: 11 folic acid (Folvite) 1 MG tablet, TAKE 1 TABLET BY MOUTH EVERY MORNING, Disp: 90 tablet, Rfl: 1 gabapentin (Neurontin) 300 MG capsule, , Disp: , Rfl: glucose blood (FREESTYLE LITE) test strip, Use to test blood sugar up to three times daily as needed for CGM failure of hypoglycemia., Disp: 100 each, Rfl: 5 Lancets misc, Use to test blood sugar up to three times daily as needed for CGM failure of hypoglycemia., Disp: 100 each, Rfl: 3 melatonin 5 MG tablet, TAKE 1 TABLET BY MOUTH AT BEDTIME, Disp: 30 tablet, Rfl: 0 metFORMIN (Glucophage) 500 MG tablet, TAKE 2 TABLETS BY MOUTH TWICE DAILY IN THE MORNING AND EVENING WITH FOOD, Disp: 360 tablet, Rfl: 1 pantoprazole (ProtoNix) 40 MG EC tablet, TAKE 1 TABLET BY MOUTH EVERY MORNING BEFORE BREAKFAST, Disp: 90 tablet, Rfl: 1 rosuvastatin (Crestor) 5 MG tablet, Take 1 tablet (5 mg) by mouth in the morning., Disp: 90 tablet,Rfl: 3 Tirzepatide (Mounjaro) 5 MG/0.5ML solution auto-injector, Inject 5 mg under the skin 1 (one) time per week., Disp: 2 mL, Rfl: 5 valsartan-hydroCHLOROthiazide (Diovan-HCT) 160-25 MG tablet, Take 1 tablet by mouth Once per day., Disp: 90 tablet, Rfl: 3 Current Facility-Administered Medications: cyanocobalamin (Vitamin B-12) injection 1,000 mcg, 1,000 mcg, Intramuscular, q30 days, Lizbeth Garner RN, 1,000 mcg at 04/11/24 1551 documented in this encounter Plan of Treatment Upcoming Encounters Date Type Department Care Team (Late st Contact Info) Description 07/07/2025 10:00 AM EST Medication Management [address] [address] Joe Garcia, PharmD [address] [place] [address] 08/07/2025 9:30 AM EST Clinical Support [address] [address] Tanya Cope RN 09/05/2025 9:30 AM EST Clinical Support [address] [address] Tanay Cope, LUIS Scheduled Orders Name Type Priority Associated Diagnoses Orde r Schedule Drug Monitoring, Cocaine Metabolite, Quantitative, Urine Lab Routine Long-term current use of opiate analgesic Ordered: 06/22/2025 documented as of this encounter Goals Goal Patient Goal Type Associated Problems Recent Progress Patient-Stated? Author Help patients manage their type 2 diabetes Care Plan Help patients manage their type 2 diabetes No Tanya Cope RN Weekly blood pressure task Care Plan Weekly blood pressure task No Tanya Cope RN Help patients manage their type 2 diabetes Care Plan Help patients manage their type 2 diabetes No Tanya Cope RN Patient has chronic kidney disease Care Plan Patient has chronic kidney disease No Tanya Cope RN Weekly blood pressure task Care Plan Weekly blood pressure task No Tanya Cope RN Patient has chronic kidney disease Care Plan Patient has chronic kidney disease No Tanya Cope RN Weekly blood pressure task Care Plan Weekly blood pressure task No Yaya, Alison, OD Weekly blood pressure task Care Plan Weekly blood pressure task No Yaya, Alison, OD Patient has chronic kidney disease Care Plan Patient has chronic kidney disease No Yaya, Alison, OD Patient has chronic kidney disease Care Plan Patient has chronic kidney disease No Yaya, Alison, OD Weekly blood pressure task Care Plan Weekly blood pressure task No Cuellar, Rosa Weekly blood pressure task Care Plan Weekly blood pressure task No Cuellar, Rosa Patient has chronic kidney disease Care Plan Patient has chronic kidney disease No Cuellar, Rosa Patient has chronic kidney disease Care Plan Patient has chronic kidney disease No Cuellar, Rosa Weekly blood pressure task Care Plan Weekly blood pressure task No Tanya Cope RN Weekly blood pressure task Care Plan Weekly blood pressure task No Tanya Cope RN Patient has chronic kidney disease Care Plan Patient has chronic kidney disease No Tanya Cope RN Patient has chronic kidney disease Care Plan Patient has chronic kidney disease No Tanya Cope RN Weekly blood pressure task Care Plan Weekly blood pressure task No Tanya Cope RN Weekly blood pressure task Care Plan Weekly blood pressure task No Tanya Cope RN Patient has chronic kidney disease Care Plan Patient has chronic kidney disease No Tanya Cope RN Patient has chronic kidney disease Care Plan Patient has chronic kidney disease No Tanya Cope RN Weekly blood pressure task Care Plan Weekly blood pressure task No Joe Garcia PharmFernando Weekly blood pressure task Care Plan Weekly blood pressure task No Joe Garcia PharmD Patient has chronic kidney disease Care Plan Patient has chronic kidney disease No Joe Garcia PharmD Patient has chronic kidney disease Care Plan Patient has chronic kidney disease No Joe Garcia PharmD Weekly blood pressure task Care Plan Weekly blood pressure task No Tanya Cope RN Weekly blood pressure task Care Plan Weekly blood pressure task No Tanya Cope RN Patient has chronic kidney disease Care Plan Patient has chronic kidney disease No Tanya Cope RN Patient has chronic kidney disease Care Plan Patient has chronic kidney disease No Tanya Cope RN Weekly blood pressure task Care Plan Weekly blood pressure task No Tanya Cope RN Weekly blood pressure task Care Plan Weekly blood pressure task No Tanya Cope RN Patient has chronic kidney disease Care Plan Patient has chronic kidney disease No Tanya Cope RN Patient has chronic kidney disease Care Plan Patient has chronic kidney disease No Tanya Cope RN documented as of this encounter Procedures Procedure Name Priority Date/Time Associated Diagnosis Comments POCT ISRAEL-14 URINE DRUG SCREEN Routine 06/22/2025 11:35 AM EST Long-term current use of opiate analgesic documented in this encounter Results * (ABNORMAL) POCT ISRAEL-14 Urine Drug Screen (06/22/2025 11:35 AM EST) THC Negative Negative Cocaine Screen, Urine Positive(A) Negative Opiate Screen, Urine Negative Negative Methamphetamine Screen Urine Negative Negative Amphetamine Screen, Urine Negative Negative Benzodiazepines Screen, Urine Negative Negative Barbiturate Screen, Urine Negative Negative Methadone Screen, Urine Negative Negative Buprenophine Screen, Urine Negative Negative TCA, Urine Negative Negative MDMA Urine Negative Negative ng/mL Oxycodone Screen, Urine Positive(A) Negative Comment:[employer] pt on Oxycodone Phencyclidine (PCP), Urine Negative Negative Propoxyphene, Urine Negative Negative Fentanyl, Urine Negative Negative Urine Urine specimen obtained by clean catch procedure / Unknown 06/22/2025 11:35 AM EST Tanya Xiong RN - 06/22/2025 11:35 AM EST UTOX cup Lot#[id number] Exp. 07/03/26 Internal Pass Control Karli Mccloud MD POINT OF CARE TEST ENTER/EDIT ORDERABLES Final Result documented in this encounter Visit Diagnoses Diagnosis Long-term current use of opiate analgesic- Primary Encounter for long-term (current) use of other medications documented in this encounter Additional Health Concerns Active Problems Noted Date Diagnosed Date Help patients manage their type 2 diabetes 06/14 Weekly blood pressure task 06/14/2025 Help patients manage their type 2 diabetes 06/14 Patient has chronic kidney disease 06/14/2025 Weekly blood pressure task 06/14/2025 Patient has chronic kidney disease 06/14/2025 Weekly blood pressure task 06/15/2025 Weekly blood pressure task 06/15/2025 Patient has chronic kidney disease 06/15/2025 Patient has chronic kidney disease 06/15/2025 Weekly blood pressure task 06/19/2025 Weekly blood pressure task 06/19/2025 Patient has chronic kidney disease 06/19/2025 Patient has chronic kidney disease 06/19/2025 Weekly blood pressure task 06/19/2025 Weekly blood pressure task 06/19/2025 Patient has chronic kidney disease 06/19/2025 Patient has chronic kidney disease 06/19/2025 Weekly blood pressure task 06/22/2025 Weekly blood pressure task 06/22/2025 Patient has chronic kidney disease 06/22/2025 Patient has chronic kidney disease 06/22/2025 Weekly blood pressure task 06/22/2025 Weekly blood pressure task 06/22/2025 Patient has chronic kidney disease 06/22/2025 Patient has chronic kidney disease 06/22/2025 Weekly blood pressure task 06/22/2025 Weekly blood pressure task 06/22/2025 Patient has chronic kidney disease 06/22/2025 Patient has chronic kidney disease 06/22/2025 Weekly blood pressure task 06/22/2025 Weekly blood pressure task 06/22/2025 Patient has chronic kidney disease 06/22/2025 Patient has chronic kidney disease 06/22/2025 Assessment Noted Time PHQ-9 Depression Total Score: 19 025 2:58 PM EDT documented as of this encounter Care Teams Asbestos Handler Relationship Specialty Start Date End Date Karli Mccloud MD [address] [place] [address] PCP - General Family Medicine 03/22/25 Joe Garcia, ErickD [address] [place] [address] Pharmacist Internal Medicine 07/04/24 Elmer Lisa Burring Machine OperatorMedicinal Plant Picker 10/09/23 documented as of this encounter
--- OUTSIDE RECORDS SUMMARY | 2025-06-22 21:04 | XMS_ITS | Encounter Summary ---
Author Organization [employer] Address 75 [facility] 7t [place] [address] Care Team Providers Care Log Chain Feeder Name Role Phone Marleni Whyte Primary Care Provider [phone] Joe Garcia PharmD Unavailable [phone] Zuhair Cabral RN Unavailable [phone] Wen Rock Unavailable Karli Mccloud MD Primary Care Provider [phone] Reason for Visit * Reason Comments Med Refill Encounter Details Date Type Department Care Team (Late st Contact Info) Description 11/08/2024 Refill [facility] MEDICINE [address] [place], [place] [phone] Marleni Whyte ANP [address] [place], [place] [phone] manager terminal (current) use of opiate analgesic; Arthritis of [...] Answer Date of Assessment Author Patient Health Questionnaire-2 Score 6 11/09/2024 2:33 PM EDT Sun Pierce LMHC * Little interest or pleasure in doing things Answer Date of Assessment Author Nearly every day 11/09/2024 2:33 PM EDT Sun Canseco Ba, LMHC * Feeling down, depressed, or hopeless Answer Date of Assessment Author Nearly every day 11/09/2024 2:33 PM EDT Sun Canseco Ba, LMHC * Trouble falling or staying asleep, or sleeping too much Answer Date of Assessment Author Nearly every day 11/09/2024 2:33 PM EDT Sun Canseco Ba, LMHC * Feeling tired or having little energy Answer Date of Assessment Author Nearly every day 11/09/2024 2:33 PM EDT Sun Canseco Ba, LMHC * Poor appetite or overeating Answer Date of Assessment Author Nearly every day 11/09/2024 2:33 PM EDT Sun Canseco Ba, LMHC * Feeling bad about yourself - or that you are a failure or have let yourself or your family down Answer Date of Assessment Author Nearly every day 11/09/2024 2:33 PM EDT Sun Canseco Ba, LMHC * Trouble concentrating on things, such as reading the newspaper or watching television Answer Date of Assessment Author More than half the days 11/09/2024 2:33 PM EDT Sun Cornejo LMHC * Moving or speaking so slowly that other people could have noticed? Or the opposite - being so fidgety or restless that you have been moving around a lot more than usual. Answer Date of Assessment Author More than half the days 11/09/2024 2:33 PM EDT Sun Cornejo LMHC * Thoughts that you would be better off or hurting yourself in some way Answer Date of Assessment Author Several days 11/09/2024 2:33 PM EDT Sun Mantilla LM[facility] * Patient Health Questionnaire-9 Score Answer Date of Assessment Author 11/09/2024 2:33 PM EDT Sun [place]illa LM[facility] * How difficult have these problems made it for you to do your work, take care of things at home, or get along with other people? Answer Date of Assessment Author Very difficult 11/09/2024 2:33 PM EDT Sun [place]illa LMHC documented as of this encounter Plan of Treatment Upcoming Encounters Date Type Department Care Team (Late st Contact Info) Description 07/07/2025 10:00 AM EST Medication Management [address] [address] Joe Garcia, PharmD [address] [place] [address] 08/07/2025 9:30 AM EST Clinical Support [address] [address] Tanya Cope, RN 09/05/2025 9:30 AM EST Clinical Support [address] [address] Tanya Cope, RN documented as of this encounter Visit Diagnoses Diagnosis USP (current) use of opiate analgesic Arthritis of both knees documented in this encounter Additional Health Concerns Assessment Noted Time PHQ-9 Depression Total Score: 024 11:06 AM EST documented as of this encounter Care Teams Log Chain Feeder Relationship Specialty Start Date End Date Marleni Whyte ANP [address] [place] [address] PCP - General Family Medicine 06/23/22 03/21/25 Karli Mccloud MD [address] [place] [address] PCP - General Family Medicine 03/22/25 Joe Garcia, Adelaida [address] [place] [address] Pharmacist Internal Medicine 07/04/24 Zuhair Cabral, LUIS [address] [place] [address] Registered Nurse Family Medicine 02/27/25 06/12/25 Wen Rock 02/27/25 06/06/25 Elmer Lisa Missile And Missile Checkout TechnicianBlowing Engineer 10/09/23 documented as of this encounter
--- OUTSIDE RECORDS SUMMARY | 2025-06-22 21:04 | XMS_ITS | Encounter Summary ---
Author Organization [email or web address] Address [address] [facility] 7t [place] [address] Care Team Providers Care Cloth Winding Supervisor Name Role Phone Marleni Whyte Primary Care Provider [phone] Joe Garcia PharmD Unavailable [phone] Zuhair Cabral RN Unavailable [phone] Wen Rock Unavailable Karli Mccloud MD Primary Care Provider [phone] Reason for Visit * Reason Comments Med Refill Encounter Details Date Type Department Care Team (Late st Contact Info) Description 06/22/2023 Refill [facility] MEDICINE [address] [place], [place] [phone] Marleni Whyte ANP [address] [place], [place] [phone] Primary osteoarthritis of right knee Social History [...] your housing situation today? I have dayday amy 05/18/[address] you li [...] Description 07/07/2025 10:00 AM EST Medication Management [address] [address] Joe Garcia, PharmD [address] [place] [phone] 08/07/2025 9:30 AM EST Clinical Support [address] [address] Tanya Cope, RN 09/05/2025 9:30 AM EST Clinical Support [address] [address] Tanya Cope, RN documented as of this encounter Visit Diagnoses Diagnosis Primary osteoarthritis of right knee documented in this encounter Additional Health Concerns Assessment Noted Time PHQ-9 Depression Total Score: 0 08/20/19 23 2:04 PM EST documented as of this encounter Care Teams Cloth Winding Supervisor Relationship Specialty Start Date End Date Marleni Whyte ANP [address] [place] [phone] PCP - General Family Medicine 06/23/22 03/21/25 Karli Mccloud MD [address] [place] [phone] PCP - General Family Medicine 03/22/25 Joe Garcia, PharmD [address] [place] [address] Pharmacist Internal Medicine 07/04/24 Zuhair Cabral, RN [address] [place] [phone] Registered Nurse Family Medicine 02/27/25 06/12/25 Wen Rock 02/27/25 06/06/25 Elmer Lisa Nitrator OperatorWood Router Hand 10/09/23 documented as of this encounter
--- OUTSIDE RECORDS SUMMARY | 2025-06-22 21:04 | XMS_ITS | Encounter Summary ---
Author Organization [employer] Address [address] [facility] 7t [place] [address] Care Team Providers Care Supervisor Hairspring Fabrication Name Role Phone Marleni Whyte Primary Care Provider [phone] Joe Garcia PharmD Unavailable [phone] Zuhair Cabral RN Unavailable [phone] Wen Rock Unavailable Karli Mccloud MD Primary Care Provider [phone] Reason for Visit * Reason Comments Med Refill Encounter Details Date Type Department Care Team (Late st Contact Info) Description 06/02/2023 Refill [facility] [address] [place], [place] [phone] Marleni Whyte ANP [address] [place] [address] Other chronic pain Social History Tobacco Use [...] Description 07/07/2025 10:00 AM EST Medication Management [address] [address] Joe Garcia, PharmD [address] [place] [address] 08/07/2025 9:30 AM EST Clinical Support [address] [address] Tanya Cope, LUIS 09/05/2025 9:30 AM EST Clinical Support [address] [address] Tanya Cope, RN documented as of this encounter Visit Diagnoses Diagnosis Other chronic pain documented in this encounter Additional Health Concerns Assessment Noted Time PHQ-9 Depression Total Score: 0 08/20/19 23 2:04 PM EST documented as of this encounter Care Teams Supervisor Hairspring Fabrication Relationship Specialty Start Date End Date Marleni Whyte ANP [address] [place] [phone] PCP - General Family Medicine 06/23/22 03/21/25 Karli Mccloud MD [address] [place] [id number] PCP - General Family Medicine 03/22/25 Joe Garcia, ErickD [address] [place] [address] Pharmacist Internal Medicine 07/04/24 Zuhair Cabral, RN [address] [place] [address] Registered Nurse Family Medicine 02/27/25 06/12/25 Wen Rock 02/27/25 06/06/25 Elmer Lisa Director Of It OperationsFood Tester 10/09/23 documented as of this encounter
--- OUTSIDE RECORDS SUMMARY | 2025-06-22 21:04 | XMS_ITS | Encounter Summary ---
Author Organization [employer] Address 75 [facility] 7t [place] [address] Care Team Providers Care Embedded Software Developer Name Role Phone Marleni Whyte Primary Care Provider Joe Garcia PharmD Unavailable [phone] Zuhair Cabral RN Unavailable [phone] Wen Rock Unavailable Karli Mccloud MD Primary Care Provider [phone] Reason for Visit * Reason Onset Date Comments Med Refill 05/30/2024 Encounter Details Date Type Department Care Team (Late st Contact Info) Description 05/30/2024 Telephone [facility] MEDICINE [address] [place], [place] [phone] Marleni Whyte ANP [address] [place], [place] [phone] Med Refill Social History Tobacco Use Types [...] (Roxicodone) 5 MG To be sent to: [facility] documented in this encounter Plan of Treatment Upcoming Encounters Date Type Department Care Team (Late st Contact Info) Description 07/07/2025 10:00 AM EST Medication Management [address] [address] Joe Garcia, PharmD [address] [place] [address] 08/07/2025 9:30 AM EST Clinical Support [address] [address] Tanya Cope, RN 09/05/2025 9:30 AM EST Clinical Support [address] [address] Tanya Cope, RN documented as of this encounter Visit Diagnoses Not on filedocumented in this encounter Additional Health Concerns Assessment Noted Time PHQ-9 Depression Total Score: 024 11:06 AM EST documented as of this encounter Care Teams Embedded Software Developer Relationship Specialty Start Date End Date Marleni Whyte ANP [address] [place] [address] PCP - General Family Medicine 06/23/22 03/21/25 Karli Mccloud MD [address] [place] [address] PCP - General Family Medicine 03/22/25 Joe Garcia, Adelaida [address] [place] [address] Pharmacist Internal Medicine 07/04/24 Zuhair Cabral, RN [address] [place] [address] Registered Nurse Family Medicine 02/27/25 06/12/25 Wen Rock 02/27/25 06/06/25 Elmer Lisa Professor Of Historical TheologyStudio Couch Frame Builder 10/09/23 documented as of this encounter
--- OUTSIDE RECORDS SUMMARY | 2025-06-22 21:04 | XMS_ITS | Encounter Summary ---
Author Organization [employer] Address 75 [facility] 7t [place] [address] Care Team Providers Care Regulator Pin Inserter Name Role Phone Marleni Whyte Primary Care Provider [phone] Joe Garcia PharmD Unavailable [phone] Zuhair Cabral RN Unavailable [phone] Wen Rock Unavailable Karli Mccloud MD Primary Care Provider [phone] Reason for Visit * Reason Comments Med Refill Encounter Details Date Type Department Care Team (Late st Contact Info) Description 06/02/2023 Refill [facility] CHC MED & PEDS [address] [place], [place] [phone] Marleni Whyte ANP 230 [place] [address] Other chronic pain Social History Tobacco Use [...] Description 07/07/2025 10:00 AM EST Medication Management [address] [address] Joe Garcia, PharmD [address] [place] [address] 08/07/2025 9:30 AM EST Clinical Support [address] [address] Tanya Cope, LUIS 09/05/2025 9:30 AM EST Clinical Support [address] [address] Tanya Cope, RN documented as of this encounter Visit Diagnoses Diagnosis Other chronic pain documented in this encounter Additional Health Concerns Assessment Noted Time PHQ-9 Depression Total Score: 0 08/20/19 23 2:04 PM EST documented as of this encounter Care Teams Regulator Pin Inserter Relationship Specialty Start Date End Date Marleni Whyte ANP [address] [place] [address] PCP - General Family Medicine 06/23/22 03/21/25 Karli Mccloud MD [address] [place] [address] PCP - General Family Medicine 03/22/25 Joe Garcia, ErickD 230 [place] [address] Pharmacist Internal Medicine 07/04/24 Zuhair Cabral, RN [address] [place] [address] Registered Nurse Family Medicine 02/27/25 06/12/25 Wen Rock 02/27/25 06/06/25 Elmer Lisa Field Service EngineerCoal Or Ore Controller 10/09/23 documented as of this encounter
--- OUTSIDE RECORDS SUMMARY | 2025-06-22 21:04 | XMS_ITS | Encounter Summary ---
Author Organization [employer] Address 75 [facility] 7t [place] [address] Care Team Providers Care First Helper Name Role Phone Marleni Whyte Primary Care Provider Joe Garcia PharmD Unavailable [phone] Zuhair Cabral RN Unavailable [phone] Wen Rock Unavailable Karli Mccloud MD Primary Care Provider [phone] Reason for Visit * Reason Comments Med Refill Encounter Details Date Type Department Care Team (Late st Contact Info) Description 10/07/2024 Refill [facility] MEDICINE 230 [place], [place] [phone] Marleni Whyte ANP 230 [place], [place] [phone] Social History Tobacco Use Types Packs/Day Years [...] Description 07/07/2025 10:00 AM EST Medication Management [address] [address] Joe Garcia, PharmD [address] [place] [address] 08/07/2025 9:30 AM EST Clinical Support [address] [address] Tanya Cope, LUIS 09/05/2025 9:30 AM EST Clinical Support [address] [address] Tanya Cope, RN documented as of this encounter Visit Diagnoses Not on filedocumented in this encounter Additional Health Concerns Assessment Noted Time PHQ-9 Depression Total Score: 25 024 11:06 AM EST documented as of this encounter Care Teams First Helper Relationship Specialty Start Date End Date Marleni Whyte ANP [address] [place] [address] PCP - General Family Medicine 06/23/22 03/21/25 Karli Mccloud MD [address] [place] [address] PCP - General Family Medicine 03/22/25 Joe Garcia, PharmD 230 [place] [address] Pharmacist Internal Medicine 07/04/24 Zuhair Cabral, LUIS [address] [place] [address] Registered Nurse Family Medicine 02/27/25 06/12/25 Wen Rock 02/27/25 06/06/25 Elmer Lisa Family Practice Nurse PractitionerMachine Shorthand Reporter 10/09/23 documented as of this encounter
--- OUTSIDE RECORDS SUMMARY | 2025-06-22 21:04 | XMS_ITS | Encounter Summary ---
Author Organization [employer] Address 75 [facility] 7t [place] [address] Care Team Providers Care Research Chemical Engineer Name Role Phone Marleni Whyte Primary Care Provider Joe Garcia PharmD Unavailable [phone] Zuhair Cabral RN Unavailable [phone] Wen Rock Unavailable Karli Mccloud MD Primary Care Provider [phone] Encounter Details Date Type Department Care Team (Late st Contact Info) Description 11/07/2024 Orders Only [facility] MEDICINE 230 [place], [place] [phone] Marleni Whyte ANP 230 [place], [place] [phone] Social History Tobacco Use Types Packs/Day Years [...] Description 07/07/2025 10:00 AM EST Medication Management [address] [address] Joe Garcia, PharmD [address] [place] [address] 08/07/2025 9:30 AM EST Clinical Support [address] [address] Tanya Cope, RN 09/05/2025 9:30 AM EST Clinical Support [address] [address] Tanya Cope, RN documented as of this encounter Visit Diagnoses Not on filedocumented in this encounter Additional Health Concerns Assessment Noted Time PHQ-9 Depression Total Score: 25 024 11:06 AM EST documented as of this encounter Care Teams Research Chemical Engineer Relationship Specialty Start Date End Date Marleni Whyte ANP 230 [place] [address] PCP - General Family Medicine 06/23/22 03/21/25 Karli Mccloud MD 230 [place], [place] [phone] PCP - General Family Medicine 03/22/25 Joe Garcia, Adelaida [address] [place], [place] [phone] Pharmacist Internal Medicine 07/04/24 Zuhair Cbaral, LUIS [address] [place] [address] Registered Nurse Family Medicine 02/27/25 06/12/25 Wen Rock 02/27/25 06/06/25 Elmer Lisa Brick BakerCode Enforcement Supervisor 10/09/23 documented as of this encounter
--- OUTSIDE RECORDS SUMMARY | 2025-06-22 21:04 | XMS_ITS ---
Author Name [facility] Organization Unknown History of Medication Use Medication Directions Dispensed Refills Start Date End Date Stat oxyCODONE (ROXICODONE) 5 mg immediate release tablet TAKE 1 TABLET BY MOUTH EVERY 6 HOURS NEEDED FOR SEVERE PAIN FOR UP TO 20 DAYS 08/10/2024 active buPROPion XL (WELLBUTRIN XL) 150 mg 24 hr tablet Take 1 tablet (150 mg total) by mouth 1 (one) time each day in the morning. 07/26/2024 active folic acid (FOLVITE) 1 mg tablet Take 1 tablet (1,000 mcg total) by mouth 1 (one) time each day in the morning. 07/26/2024 active gabapentin (NEURONTIN) 300 mg capsule TAKE 1 CAPSULE BY MOUTH TWICE DAILY IN THE MORNING AND AT NOON and TAKE 2 CAPSULES BY MOUTH EVERY DAY AT BEDTIME 07/26/2024 active Trulicity 4.5 mg/0.5 mL pen injector injection INJECT ONE PEN (= 4.5MG) SUBCUTANEOUSLY ONCE A WEEK DIRECTED 07/26/2024 active aspirin 81 mg EC tablet Take 1 tablet (81 mg total) by mouth 1 (one) time each day in the morning. 06/28/2024 active cyanocobalamin (VITAMIN B-12) 1,000 mcg/mL injection Inject 1 mL (1,000 mcg total) into the shoulder, thigh, or buttocks every 30 (thirty) days. 06/28/2024 active melatonin 5 mg tablet Take 1 tablet (5 m g total) by mouth. at bedtime. 06/28/2024 active metFORMIN (GLUCOPHAGE) 500 mg tablet TAKE 2 TABLETS BY MOUTH TWICE DAILY IN THE MORNING AND EVENING WITH FOOD 06/28/2024 active rosuvastatin (CRESTOR) 5 mg tablet Take 1 tablet (5 mg total) by mouth 1 (one) time each day in the morning. 06/28/2024 active valsartan-hydroCHLORO thiazide (DIOVAN-HCT) 160-25 mg per tablet TAKE 1 TABLET BY MOUTH EVERYDAY AT NOON 06/28/2024 active naloxone (NARCAN) 4 mg/0.1 mL nasal spray FOR SUSPECTED OPIOID OVERDOSE. SPRAY 0.1mL IN ONE NOSTRIL. REPEAT IN ALTERNATE NOSTRIL 2-3 MINUTES IF NEEDED. SEEK MEDICAL ATTENTION IMMEDIATELY EVEN IF PATIENT RESPONDS. 06/06/2024 active Alcohol Prep Pads pads, medicated See administration instructions. 06/02/2024 active cholecalciferol (VITAMIN D-3) 50 mcg (2,000 unit) tablet Take 1 tablet (2,000 Units total) by mouth. 06/01/2024 active pantoprazole (PROTONIX) 40 mg EC tablet Take 1 tablet (40 mg total) by mouth 1 (one) time each day before breakfast. 06/01/2024 active miconazole nitrate 2 % aerosol,spray Apply 1 Applicator topically daily. 04/07/2024 active predniSONE (DELTASONE) 5 mg tablet Take by mouth 1 (one) time each day. 02/19/2024 active Dexcom G7 Credit Card Clerk misc use as directed to test blood sugar 01/08/2024 active ketoconazole (NIZORAL) 2 % shampoo APPLY TO THE AFFECTED AREA(S) TOPICALLY TWICE A WEEK 09/28/2023 active albuterol HFA (PROVENTIL HFA;VENTOLIN HFA) 108 (90 Base) MCG/ACT inhaler Inhale 2 puffs by mouth every 6 (six) hours if needed for wheezing. active loperamide (IMODIUM A-D) 2 mg tablet Take 1 tablet (2 mg total) by mouth 4 (four) times a day if needed for diarrhea. active Allergies Allergen Reaction Severity Comment Documented Date Source Statu s ASPIRIN 07/10/2019 [facility] active ACETAMINOPHEN Other reaction (s): Liver Toxicity Note from previous EHR: not allergic but per oncologist is contraindicated due to active liver metastases 05/24/2019 [facility] active Problems Problem Status Onset Date Problem Type Date of Resoluti on Source Knee pain active 2024-08-31 ProblemAct [facility] Folliculitis active 2024-08-31 ProblemAct [facility] SFR[facility] Hand joint pain active 2024-08-[address] [facility] Asthenia active 2024-08-31 ProblemAct [facility] Hematemesis active 2024-08-31 ProblemAct [facility] LYLE Dissociative disorder active 2024-08-31 ProblemAct [facility] Malignant neoplastic disease ([facility] V24, [facility] V28) active 2024-08-31 ProblemAct [facility] Habitual snoring active 2024-08-31 ProblemAct C T_THSFRAN DIANNA (obstructive sleep apnea) active 2024-08-31 ProblemAct [facility] Pulmonary function studies abnormal active 2024-08-31 ProblemAct [facility] Osteoarthritis of right knee active 2024-08-31 ProblemAct [facility] Reactive depression active 2024-08-31 ProblemAct [facility] Type 2 diabetes mellitus ([facility] V24, [facility] V28) active 2024-08-31 ProblemAct [facility] Upper GI bleeding active 2024-08-31 ProblemAct [facility] Severe episode of recurrent major depressive disorder, without psychotic features ([facility] V24, [facility] V28) active 2024-08-31 ProblemAct [facility] Fall active 2024-08-31 ProblemAct [facility] AN Metastatic malignant neuroendocrine tumor to liver ([facility] V24, [facility] V28) active 2024-08-31 ProblemAct [facility] GERD without esophagitis active 2024-08-31 ProblemAct [facility] Incisional hernia active 2024-08-31 ProblemAct [facility] Grief active 2024-08-31 ProblemAct [facility]_THS[facility] AN Cobalamin deficiency active 2024-08-31 ProblemAct [facility] Dyspnea active 2024-08-31 ProblemAct [facility] AN Pleuritic pain active 2024-08-31 ProblemAct [facility]_ THSFRAN Sinusitis active 2024-08-31 ProblemAct [facility]_THS[facility] AN WINSTON (generalized anxiety disorder) active 2024-08-31 ProblemAct [facility] Chronic low back pain active 2024-08-31 ProblemAct [facility]_THS[facility] Umbilical hernia without obstruction and without gangrene active 2024-08-31 ProblemAct [facility] Rectal polyp active 2024-08-31 ProblemAct [facility] SFR[facility] HTN (hypertension) active 2024-08-31 ProblemAct [facility] Blood in urine active 2024-08-31 ProblemAct [facility]_ THSFRAN Weight loss active 2024-08-31 ProblemAct [facility]S LYLE Hemoptysis active 2024-08-31 ProblemAct [facility]_THSF RAN
--- OUTSIDE RECORDS SUMMARY | 2025-06-22 21:04 | XMS_ITS | Clinical Summary ---
Author Organization [facility] Address [address] [place] [address] Phone Care Team Providers Care Storm Window Installer Name Role Phone Physician, No Pcp Primary [...] WEEK DIRECTED 4 Active FreeStyle Isidro 2 Melba misc USE DIRECTED EVERY 8 HOURS 4 [...] times a day. 4 Active Dexcom G7 Utilities Estimator And Drafter misc use as directed to test blood [...] 08/31/2024 Knee pain 08/31/2024 Malignant neoplastic disease ([facility] V24, [facility]/ [facility] V28) 08/31/2024 Low serum vitamin B12 08/31/2024 DIANNA (obstructive sleep apnea) 08/31/2024 Osteoarthritis of right knee 08/31/2024 Pulmonary function studies abnormal 08/31/2024 Pleuritic pain 08/31/2024 Rectal polyp 08/31/2024 Reactive depression 08/31/2024 Severe episode of recurrent major depressive disorder, without psychotic features ([facility]/HCC V24, CMS/HCC V28) 08/31/2024 Umbilical hernia without obstruction and without gangrene 08/31/2024 Sinusitis 08/31/2024 Hematemesis 08/31/2024 Upper GI bleeding 08/31/2024 Weight loss 08/31/2024 Type 2 diabetes mellitus (CMS/HCC V24, CMS/HCC V 28) 08/31/2024 Metastatic malignant neuroen docrine tumor to liver ([facility]/HCC V24, [facility]/HCC V28) 08/31/2024 WINSTON (generalized anxiety disorder) 08/31/2024 Grief 08/31/2024 Resolved Problems Problem Noted Date Diagnosed Date Resolved Date Thoracic spine pain 08/31/2024 08/31/19 25 Encounters Date Type Department Care Team Description 03/23/2025 3:30 PM EDT Office Visit Orthopedic Surgery - [place] [address] [place] [address] [place] [phone] Marylu Garcia NP Primary osteoarthritis of [...] braxton litus) (HCC) Liver cancer (CMS/HCC V24, [facility]/HCC V28) DX:Liver cancer (HCC) Cancer (CMS/HCC V24, [facility]/HCC V28) Hernia of abdominal cavity Diabetes mellitus (CMS/[facility] V 24, [facility] V28) Asthma COPD (chronic obstructive pu lmonary disease) ([facility] V24, [facility] V28) Social History Tobacco Use Types Packs/Day [...] Urine Albumin-Creatinine Ratio (uACR) 08/31/2024 COVID-19 Vaccine ( season) 2025 07/04/2024, 06/24/2021, 10/24/2020, Additional history [...] mmol/L LAB CHEMISTRY METHOD 08/05/2024 8:35 PM [facility] Potassium 3.4(L) 3.5 - 5.5 mmol/L LAB CHEMISTRY METHOD 08/05/2024 8:35 PM [facility] Chloride 101 96 - 110 mmol/L LAB CHEMISTRY METHOD 08/05/2024 8:35 PM [facility] CO2 29 21 - 32 mmol/L LAB CHEMISTRY METHOD 08/05/2024 8:35 PM [facility] Anion Gap 4 3 - 11 LAB CHEMISTRY METHOD 08/05/2024 8:35 PM [facility] Glucose 159(H) 70 - 100 mg/dL LAB CHEMISTRY METHOD 08/05/2024 8:35 PM [facility] BUN 13 5 - 25 mg/dL LAB CHEMISTRY METHOD 08/05/2024 8:35 PM [facility] Creatinine 0.86 0.70 - 1.30 mg/dL LAB CHEMISTRY METHOD 08/05/2024 8:35 PM [facility] eGFR 97 >=60 mL/min/1. 73m2 LAB CHEMISTRY METHOD 08/05/2024 8:35 PM [facility] Comment:Calculation based on the Chronic Kidney Disease Epidemiology Collaboration (CKD-EPI) equation refit without adjustment for race. BUN/Creatinine Ratio 15.1 LAB CHEMISTRY METHOD 08/05/2024 8:35 PM [facility] Calcium 8.4(L) 8.5 - 10.5 mg/dL LAB CHEMISTRY METHOD 08/05/2024 8:35 PM [facility] Blood Venous blood specimen / Unknown Venipuncture / Unknown 08/05/2024 8:03 PM EST 08/05/2024 8:09 PM EST Nomi Ashly Rutherford MD LAB BLOOD ORDERABLES Final Resu lt [facility] ([facility] [place] [address] [place] [address], from Last 3 Months or Most Recently Relevant to Health Maintenance Insurance Care Teams Storm Window Installer Relationship Specialty Start Date End Date Physician, No Pcp PCP - General 08/05/24
--- OUTSIDE RECORDS SUMMARY | 2025-06-22 21:04 | XMS_ITS | Encounter Summary ---
Author Organization [employer] Address 75 [facility] 7t [place] [address] Care Team Providers Care Drafter (Cad) Electrical Name Role Phone Marleni Whyte Primary Care Provider Joe Garcia PharmD Unavailable [phone] Zuhair Cabral RN Unavailable [phone] Wen Rock Unavailable Karli Mccloud MD Primary Care Provider [phone] Reason for Visit * Reason Comments Med Refill Encounter Details Date Type Department Care Team (Late st Contact Info) Description 09/15/2024 Refill [facility] CHC MED & PEDS [address] [place], [place] [phone] Marleni Whyte ANP [address] [place] [address] Acute pain of both knees Social History [...] 07/07/2025 10:00 AM EST Medication Management [address] [address] Joe Garcia, ErickD [address] [place] [address] 08/07/2025 9:30 AM EST Clinical Support [address] [address] Tanya Cope, LUIS 09/05/2025 9:30 AM EST Clinical Support [address] [address] Tanya oCpe, RN documented as of this encounter Visit Diagnoses Diagnosis Acute pain of both knees documented in this encounter Additional Health Concerns Assessment Noted Time PHQ-9 Depression Total Score: 25 024 11:06 AM EST documented as of this encounter Care Teams Drafter (Cad) Electrical Relationship Specialty Start Date End Date Marleni Whyte ANP [address] [place] [address] PCP - General Family Medicine 06/23/22 03/21/25 Karli Mccloud MD [address] [place], [place] [phone] PCP - General Family Medicine 03/22/25 Joe Garcia, ErickD [address] [place] [address] Pharmacist Internal Medicine 07/04/24 Zuhair Cabral, RN [address] [place] [address] Registered Nurse Family Medicine 02/27/25 06/12/25 Wen Rock 02/27/25 06/06/25 Elmer Lisa Senior Animal TrainerTooth Inspector 10/09/23 documented as of this encounter
--- OUTSIDE RECORDS SUMMARY | 2025-06-22 21:04 | XMS_ITS | Encounter Summary ---
Author Organization [employer] Address 75 [facility] 7t [place] [address] Care Team Providers Care Welding Machine Operator Ultrasonic Name Role Phone Marleni Whyte Primary Care Provider Joe Garcia PharmD Unavailable [phone] Zuhair Cabral RN Unavailable [phone] Wen Rock Unavailable Karli Mccloud MD Primary Care Provider Reason for Visit * Reason Comments Med Refill Encounter Details Date Type Department Care Team (Late st Contact Info) Description 07/21/2024 Refill [facility] CHC MED & PEDS [address] [place], [place] [phone] Marleni Whyte ANP [address] [place] [address] Primary osteoarthritis of right knee Social History [...] 07/26/2024 11:26 AM EST Pt here for [employer] [place]. Utox Pos for MANUEL again (pos on 05/20, 05/04 and 01/29/24 that was confirmed by lab). Pt still denies any cocaine use. Next [employer]/ chronic pain group appt scheduled for 08/30/24 at 9:30am. Please advise. documented in this encounter Plan of Treatment Upcoming Encounters Date Type Department Care Team (Late st Contact Info) Description 07/07/2025 10:00 AM EST Medication Management [address] [address] Joe Garcia, PharmD [address] [place] [address] 08/07/2025 9:30 AM EST Clinical Support [address] [address] Tanya Cope RN 09/05/2025 9:30 AM EST Clinical Support [address] [place] [address] Tanya Cope, RN documented as of this encounter Visit Diagnoses Diagnosis Primary osteoarthritis of right knee documented in this encounter Additional Health Concerns Assessment Noted Time PHQ-9 Depression Total Score: 25 024 11:06 AM EST documented as of this encounter Care Teams Welding Machine Operator Ultrasonic Relationship Specialty Start Date End Date Marleni Whyte ANP [address] [place] [address] PCP - General Family Medicine 06/23/22 03/21/25 Karli Mccloud MD [address] [place] [address] PCP - General Family Medicine 03/22/25 Joe Garcia, ErickD [address] [place] [address] Pharmacist Internal Medicine 07/04/24 Zuhair Cabral, LUIS [address] [place] [address] Registered Nurse Family Medicine 02/27/25 06/12/25 Wen Rock 02/27/25 06/06/25 Elmer Lisa Pet FeederRailroader 10/09/23 documented as of this encounter
--- OUTSIDE RECORDS SUMMARY | 2025-06-22 21:04 | XMS_ITS | Encounter Summary ---
Author Organization [employer] Address [address] [facility] 7t [place] [address] Care Team Providers Care Braddisher Name Role Phone Marleni Whyte Primary Care Provider [phone] Joe Garcia PharmD Unavailable [phone] Zuhair Cabral RN Unavailable [phone] Wen Rock Unavailable Karli Mccloud MD Primary Care Provider [phone] Reason for Visit * Reason Onset Date Comments Med Refill 11/07/2024 Encounter Details Date Type Department Care Team (Late st Contact Info) Description 11/07/2024 Telephone [facility] [address] [place], [place] [phone] Marleni Whyte ANP [address], [place] [phone] Med Refill Social History Tobacco Use Types Packs/Day Years Used Date Smoking Tobacco: Never Passive Smoke Exposure: Never Smokeless Tobacco: Never Alcohol Use Standard Drinks/Week Comments Not Currently 0 (1 standard drink = 0.6 oz pur e alcohol) Depression Answer Date Recorded Patient Health Questionnaire-9 Score 11/09/2024 Patient Health Questionnaire-9 Score 23 11/09/2024 [...] Mantilla LMHC documented as of this encounter Miscellaneous Notes * Telephone Encounter - Angela Prasad - 11/07/2024 12:46 PM EDT TC from pt requesting medication refill. Medications needing refill : oxyCODONE (Roxicodone) 5 MG immediate release tablet To be sent to: [facility] - [place], [place] - [address] [facility] Pt would like to r/s SUPPLY CHAIN TECH appt documented in this encounter Plan of Treatment Upcoming Encounters Date Type Department Care Team (Late st Contact Info) Description 07/07/2025 10:00 AM EST Medication Management [facility] [address] [place] [address] Joe Garcia, PharmD [address] [place] [address] 08/07/2025 9:30 AM EST Clinical Support [address] [address] Tanya Cope, RN 09/05/2025 9:30 AM EST Clinical Support [address] [address] Tanya Cope, RN documented as of this encounter Visit Diagnoses Not on filedocumented in this encounter Additional Health Concerns Assessment Noted Time PHQ-9 Depression Total Score: 024 11:06 AM EST documented as of this encounter Care Teams Braddisher Relationship Specialty Start Date End Date Marleni Whyte ANP [address] [place] [id number] PCP - General Family Medicine 06/23/22 03/21/25 Karli Mccloud MD [address] [place] [address] PCP - General Family Medicine 03/22/25 Joe Garcia, ErickD [address] [place] [phone] Pharmacist Internal Medicine 07/04/24 Zuhair Cabral, RN [address] [place] [address] Registered Nurse Family Medicine 02/27/25 06/12/25 Wen Rock 02/27/25 06/06/25 Elmer Lisa Immersion MetalcleanerFirebreak Cutter 10/09/23 documented as of this encounter
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
--- OUTSIDE RECORDS SUMMARY | 2025-06-22 21:04 | XMS_ITS | Encounter Summary ---
Author Organization [employer] Address [address] [facility] 7[address] [place] [address] Care Team Providers Care Senior Teller Name Role Phone Marleni Whyte Primary Care Provider [phone] Joe Garcia PharmD Unavailable [phone] Zuhair Cabral RN Unavailable [phone] 9 Wen Rock Unavailable Karli Mccloud MD Primary Care Provider [phone] Reason for Visit * Reason Comments Med Refill Encounter Details Date Type Department Care Team (Late st Contact Info) Description 06/01/2023 Refill [facility] [address] [place], [place] [phone] Marleni Whyte ANP [address] [place] [address] Other chronic pain Social History Tobacco Use [...] PM EDT TC to pt to schedule COST ESTIMATING MANAGER [place], no answer. Call got disconnected x2, unable to lvm documented in this encounter Plan of Treatment Upcoming Encounters Date Type Department Care Team (Late st Contact Info) Description 07/07/2025 10:00 AM EST Medication Management [address] [address] Joe Garcia, PharmD [address] [place] [phone] 08/07/2025 9:30 AM EST Clinical Support [address] [address] Tanya Cope, RN 09/05/2025 9:30 AM EST Clinical Support [address] [address] Tanya Cope, RN documented as of this encounter Visit Diagnoses Diagnosis Other chronic pain documented in this encounter Additional Health Concerns Assessment Noted Time PHQ-9 Depression Total Score: 0 08/20/19 23 2:04 PM EST documented as of this encounter Care Teams Senior Teller Relationship Specialty Start Date End Date Marleni Whyte ANP [address] [place], [place] [phone] PCP - General Family Medicine 06/23/22 03/21/25 Karli Mccloud MD [address] [place] [phone] PCP - General Family Medicine 03/22/25 Joe Garcia, ErickD [address] [place] [phone] Pharmacist Internal Medicine 07/04/24 Zuhair Cabral, LUIS [address] [place] [phone] Registered Nurse Family Medicine 02/27/25 06/12/25 Wen [place] 02/27/25 06/06/25 Elmer Lisa Adjustment ClerkTemperer 10/09/23 documented as of this encounter
--- OUTSIDE RECORDS SUMMARY | 2025-06-22 21:04 | XMS_ITS | Encounter Summary ---
Author Organization [employer] Address 75 [facility] 7t [place] [address] Care Team Providers Care Visiting Teacher Name Role Phone Marleni Whyte Primary Care Provider [phone] Joe Garcia PharmD Unavailable [phone] Zuhair Cabral RN Unavailable [phone] Wen Rock Unavailable Karli Mccloud MD Primary Care Provider [phone] Reason for Visit * Reason Comments Med Refill Encounter Details Date Type Department Care Team (Late st Contact Info) Description 11/06/2024 Refill [facility] MEDICINE 230 [place], [place] [phone] Marleni Whyte ANP 230 [place], [place] [phone] Type 2 diabetes mellitus with hyperlipidemia ([facility]/HCC) ([facility]) Social History Tobacco Use Types Packs/Day Years [...] the past 12 months, has t he [facility], gas, oil or water company threatened to [...] Description 07/07/2025 10:00 AM EST Medication Management [address] [address] Joe Garcia, PharmD [address] [place] [address] 08/07/2025 9:30 AM EST Clinical Support [address] [address] Tanya Cope, RN 09/05/2025 9:30 AM EST Clinical Support [address] [address] Tanya Cope, RN documented as of this encounter Visit Diagnoses Diagnosis Type 2 diabetes mellitus with hyperlipidemia (HCC) documented in this encounter Additional Health Concerns Assessment Noted Time PHQ-9 Depression Total Score: 024 11:06 AM EST documented as of this encounter Care Teams Visiting Teacher Relationship Specialty Start Date End Date Marleni Whyte ANP [address] [place] [address] PCP - General Family Medicine 06/23/22 03/21/25 Karli Mccloud MD [address] [place] [address] PCP - General Family Medicine 03/22/25 Joe Garcia, ErickD [address] [place] [address] Pharmacist Internal Medicine 07/04/24 Zuhair Cabral, RN [address] [place] [address] Registered Nurse Family Medicine 02/27/25 06/12/25 Wen Rock 02/27/25 06/06/25 Elmer Lisa Waiver AnalystSprayer Machine 10/09/23 documented as of this encounter
--- OUTSIDE RECORDS SUMMARY | 2025-06-22 21:04 | XMS_ITS | Encounter Summary ---
Author Organization [employer] Address 75 [facility] 7t [place] [address] Care Team Providers Care Network Project Manager Name Role Phone Marleni Whyte Primary Care Provider Joe Garcia PharmD Unavailable [phone] Zuhair Cabral RN Unavailable [phone] Wen Rock Unavailable Karli Mccloud MD Primary Care Provider [phone] Reason for Visit * Reason Comments Med Refill Encounter Details Date Type Department Care Team (Late st Contact Info) Description 11/15/2024 Refill [facility] MEDICINE 230 [place], [place] [phone] Marleni Whyte ANP 230 [place], [place] [phone] terminal manager (current) use of opiate analgesic; Arthritis of [...] the past 12 months, has t he [employer], gas, oil or water company threatened to [...] Description 07/07/2025 10:00 AM EST Medication Management [address] [address] Joe Garcia, ErickD [address] [place] [address] 08/07/2025 9:30 AM EST Clinical Support [address] [address] Tanya Cope, LUIS 09/05/2025 9:30 AM EST Clinical Support [address] [address] Tanya Cope, RN documented as of this encounter Visit Diagnoses Diagnosis half-way (current) use of opiate analgesic Arthritis of both knees documented in this encounter Additional Health Concerns Assessment Noted Time PHQ-9 Depression Total Score: 22 025 10:52 AM EDT documented as of this encounter Care Teams Network Project Manager Relationship Specialty Start Date End Date Marleni Whyte ANP [address] [place] [address] PCP - General Family Medicine 06/23/22 03/21/25 Karli Mccloud MD 230 [place], [place] [phone] PCP - General Family Medicine 03/22/25 Joe Garcia, Adelaida 230 [place], [place] [phone] Pharmacist Internal Medicine 07/04/24 Zuhair Cabral, LUIS [address] [place] [address] Registered Nurse Family Medicine 02/27/25 06/12/25 Wen Rock 02/27/25 06/06/25 Elmer Lisa Wire Preparation Machine TenderParts Cleaner 10/09/23 documented as of this encounter
--- OUTSIDE RECORDS SUMMARY | 2025-06-22 21:04 | XMS_ITS | Encounter Summary ---
Author Organization [employer] Address 75 [facility] 7t [place] [address] Care Team Providers Care Net Developer Name Role Phone Marleni Whyte Primary Care Provider Joe Garcia PharmD Unavailable [phone] Zuhair Cabral RN Unavailable [phone] Wen Rock Unavailable Karli Mccloud MD Primary Care Provider Reason for Visit * Reason Comments Med Refill Encounter Details Date Type Department Care Team (Late st Contact Info) Description 09/14/2024 Refill [facility] MEDICINE 230 [place], [place] [phone] Marleni Whyte ANP 230 [place], [place] [phone] Primary osteoarthritis of right knee Social History [...] 07/07/2025 10:00 AM EST Medication Management [address] [address] Joe Garcia, PharmD [address] [place] [address] 08/07/2025 9:30 AM EST Clinical Support [address] [address] Tanya Cope, LUIS 09/05/2025 9:30 AM EST Clinical Support [address] [address] Tanya Cope, RN documented as of this encounter Visit Diagnoses Diagnosis Primary osteoarthritis of right knee documented in this encounter Additional Health Concerns Assessment Noted Time PHQ-9 Depression Total Score: 25 024 11:06 AM EST documented as of this encounter Care Teams Net Developer Relationship Specialty Start Date End Date Marleni Whyte ANP [address] [place] [address] PCP - General Family Medicine 06/23/22 03/21/25 Karli Mccloud MD 230 [place] [address] PCP - General Family Medicine 03/22/25 Joe Garcia, ErickD 230 [place], [place] [phone] Pharmacist Internal Medicine 07/04/24 Zuhair Cabral, RN [address] [place] [address] Registered Nurse Family Medicine 02/27/25 06/12/25 Wen Rock 02/27/25 06/06/25 [place] Lisa Head Pastry ChefTube Sizer And Cutter Operator 10/09/23 documented as of this encounter
--- OUTSIDE RECORDS SUMMARY | 2025-06-22 21:04 | XMS_ITS | Encounter Summary ---
Author Organization [employer] Address 75 [facility] 7t [place] [address] Care Team Providers Care Cab Worker Name Role Phone Marleni Whyte Primary Care Provider [phone] Joe Garcia PharmD Unavailable [phone] Zuhair Cabral RN Unavailable [phone] Wen Rock Unavailable Karli Mccloud MD Primary Care Provider [phone] Reason for Visit * Reason Comments Med Refill Encounter Details Date Type Department Care Team (Late st Contact Info) Description 06/22/2023 Refill [facility] MEDICINE 230 [place], [place] [phone] Marleni Whyte ANP 230 [place], [place] [phone] Primary osteoarthritis of right knee Social History [...] Description 07/07/2025 10:00 AM EST Medication Management [address] [address] Joe Garcia, PharmD [address] [place] [address] 08/07/2025 9:30 AM EST Clinical Support [address] [address] Tanya Cope, RN 09/05/2025 9:30 AM EST Clinical Support [address] [address] Tanya Cope, RN documented as of this encounter Visit Diagnoses Diagnosis Primary osteoarthritis of right knee documented in this encounter Additional Health Concerns Assessment Noted Time PHQ-9 Depression Total Score: 0 08/20/19 23 2:04 PM EST documented as of this encounter Care Teams Cab Worker Relationship Specialty Start Date End Date Marleni Whyte ANP [address] [place] [address] PCP - General Family Medicine 06/23/22 03/21/25 Karli Mccloud MD [address] [place] [address] PCP - General Family Medicine 03/22/25 Joe Garcia, PharmD 230 [place] [address] Pharmacist Internal Medicine 07/04/24 Zuhair Cabral, RN [address] [place] [address] Registered Nurse Family Medicine 02/27/25 06/12/25 Wen Rock 02/27/25 06/06/25 Elmer Lisa Beet WorkerTravel Journalist 10/09/23 documented as of this encounter
--- OUTSIDE RECORDS SUMMARY | 2025-06-22 21:04 | XMS_ITS | Encounter Summary ---
Author Organization [employer] Address 75 [facility] 7t [place] [address] Care Team Providers Care Developer Programmer Name Role Phone Marleni Whyte Primary Care Provider [phone] Joe Garcia PharmD Unavailable [phone] Zuhair Cabral RN Unavailable [phone] Wen Rock Unavailable Karli Mccloud MD Primary Care Provider [phone] Reason for Visit * Reason Onset Date Comments Med Refill 05/29/2023 Encounter Details Date Type Department Care Team (Late st Contact Info) Description 05/29/2023 Telephone [facility] MEDICINE 230 [place], [place] [phone] Marleni Whyte ANP 230 [place], [place] [phone] Med Refill Social History Tobacco Use Types [...] Description 07/07/2025 10:00 AM EST Medication Management [address] [address] Joe Garcia, PharmD [address] [place] [address] 08/07/2025 9:30 AM EST Clinical Support [address] [address] Tanya Cope RN 09/05/2025 9:30 AM EST Clinical Support [address] [address] Tanya Cope, RN documented as of this encounter Visit Diagnoses Not on filedocumented in this encounter Additional Health Concerns Assessment Noted Time PHQ-9 Depression Total Score: 0 08/20/19 23 2:04 PM EST documented as of this encounter Care Teams Developer Programmer Relationship Specialty Start Date End Date Marleni Whyte ANP 230 [place] [address] PCP - General Family Medicine 06/23/22 03/21/25 Karli Mccloud MD 230 [place], [place] [phone] PCP - General Family Medicine 03/22/25 Joe Garcia, ErickD [address] [place] [address] Pharmacist Internal Medicine 07/04/24 Zuhair Cabral, LUIS [address] [place] [address] Registered Nurse Family Medicine 02/27/25 06/12/25 Wen Rock 02/27/25 06/06/25 Elmer Lisa Legal Document AssistantKidney Puller 10/09/23 documented as of this encounter
--- OUTSIDE RECORDS SUMMARY | 2025-06-22 21:04 | XMS_ITS | Encounter Summary ---
Author Organization [employer] Address 75 [facility] 7t [place] [address] Care Team Providers Care Content Administrator Name Role Phone Marleni Whyte Primary Care Provider Joe Garcia PharmD Unavailable [phone] Zuhair Cabral RN Unavailable [phone] Wen Rock Unavailable Karli Mccloud MD Primary Care Provider Reason for Visit * Reason Onset Date Comments Med Refill 04/01/2023 Encounter Details Date Type Department Care Team (Late st Contact Info) Description 04/01/2023 Telephone [facility] MEDICINE 230 [place], [place] [phone] Marleni Whyte ANP 230 [place], [place] [phone] Med Refill Social History Tobacco Use Types [...] Description 07/07/2025 10:00 AM EST Medication Management [address] [phone] Joe Garcia, PharmD [address] [place] [address] 08/07/2025 9:30 AM EST Clinical Support [address] [phone] Tanya Cope, LUIS 09/05/2025 9:30 AM EST Clinical Support [address] [phone] Tanya Cope, RN documented as of this encounter Visit Diagnoses Not on filedocumented in this encounter Additional Health Concerns Assessment Noted Time PHQ-9 Depression Total Score: 0 08/20/19 23 2:04 PM EST documented as of this encounter Care Teams Content Administrator Relationship Specialty Start Date End Date Marleni Whyte ANP [address] [place] [address] PCP - General Family Medicine 06/23/22 03/21/25 Karli Mccloud MD [address] [place] [address] PCP - General Family Medicine 03/22/25 Joe Garcia, PharmD [address] [place] [address] Pharmacist Internal Medicine 07/04/24 Zuhair Cabral, LUIS [address] [place] [address] Registered Nurse Family Medicine 02/27/25 06/12/25 Wen Rock 02/27/25 06/06/25 Elmer Lisa Bomb Squad CommanderBox Spring Upholsterer 10/09/23 documented as of this encounter
--- OUTSIDE RECORDS SUMMARY | 2025-06-22 21:05 | XMS_ITS | Encounter Summary ---
Author Organization [employer] Address 75 [facility] 7t [place] [address] Care Team Providers Care Score Caller Name Role Phone Joe Garcia PharmD Unavailable [phone] Karli Mccloud MD Primary Care Provider [phone] Reason for Visit * Reason Onset Date Comments FACILITIES MANAGEMENT EXECUTIVE AGreement signed 06/22/2025 UTOX Pos MANUEL 06/22/2025 Encounter Details Date Type Department Care Team (Late st Contact Info) Description 06/22/2025 Telephone [facility] MEDICINE 230 [place] [address] Tanya Cope, LUIS FACILITIES MANAGEMENT EXECUTIVE AGreement signed; UTOX Pos MANUEL Social History Tobacco Use Types Packs/Day Years Used Date Smoking Tobacco: Never Passive Smoke Exposure: Never Smokeless Tobacco: Never Alcohol Use Standard Drinks/Week Comments Not Currently 0 (1 standard drink = 0.6 oz pur e alcohol) Depression Answer Date Recorded Patient Health Questionnaire-9 Score 19 03/22/2025 Patient Health Questionnaire-9 Score 19 03/22/2025 Last PHQ-9: Questionnaire Data Not on [...] encounter Miscellaneous Notes * Telephone Encounter - Karli Mccloud MD - 06/22/2025 12:53 PM EST Cannot continue to fill if he is using cocaine, also the cocaine is essentially actively competing with the oxycodone. I will refill this script, he needs to be retested in next 3-5 weeks, and then we can re-evaluate whether treatment with oxycodone makes sense for his pain if he is using cocaine as well. * Telephone Encounter - Tanya Cope RN - 06/22/2025 11:42 AM EST Pt had FACILITIES MANAGEMENT EXECUTIVE Renewal appointment today BPI completed on: 06/22/2025 , pain severity score: 9, activity interference score: 9 BPI completed on: 05/04/2024 , pain severity score: 8, activity interference score: 10 UTOX Pos MANUEL, sent out for confirmation. Reviewed UTOX results from today. Discussed the [...] abnormal. Reviewed with patient at length the FACILITIES MANAGEMENT EXECUTIVE Agreement, emphasized section about notifying your providerof all the drugs he's taking, including illegal drugs. Pt again denied using cocaine. documented in this encounter Plan of Treatment Upcoming Encounters Date Type Department Care Team (Late st Contact Info) Description 07/07/2025 10:00 AM EST Medication Management [address] [address] Joe Garcia, PharmD [address] [place] [address] 08/07/2025 9:30 AM EST Clinical Support [address] [address] Tanya Cope RN 09/05/2025 9:30 AM EST Clinical Support [address] [address] Tanya Cope RN documented as of this encounter Goals Goal Patient Goal Type Associated Problems Recent Progress Patient-Stated? Author Help patients manage their type 2 diabetes Care Plan Help patients manage their type 2 diabetes Tanya Torres RN Weekly blood pressure task Care Plan Weekly blood pressure task No Tanya Cope RN Help patients manage their type 2 diabetes Care Plan Help patients manage their type 2 diabetes Tanya Torres, LUIS Patient has chronic kidney disease Care Plan Patient has chronic kidney disease Tanya Torres RN Weekly blood pressure task Care Plan Weekly blood pressure task Tanya Torres RN Patient has chronic kidney disease Care Plan Patient has chronic kidney disease Tanya Torres RN Weekly blood pressure task Care Plan [...] blood pressure task No Joe Garcia, PharmFernando Weekly blood pressure task Care Plan Weekly blood pressure task No Joe Garcia, PharmD Patient has chronic kidney disease Care Plan Patient has chronic kidney disease No Joe Garcia, PharmD Patient has chronic kidney disease Care Plan Patient has chronic kidney disease No Joe Garcia, PharmD Weekly blood pressure task Care Plan [...] Care Plan Patient has chronic kidney disease Tanya Torres RN Patient has chronic kidney disease Care Plan Patient has chronic kidney disease Tanya Torres RN documented as of this encounter Visit Diagnoses Not on filedocumented in this encounter Additional Health Concerns Active [...] documented as of this encounter Care Teams Score Caller Relationship Specialty Start Date End Date Karli Mccloud MD [address] [place] [address] PCP - General Family Medicine 03/22/25 Joe Garcia, PharmD 230 [place] [address] Pharmacist Internal Medicine 07/04/24 Elmer Lisa Manganese WheelerFixed Route Bus Operator 10/09/23 documented as of this encounter
--- OUTSIDE RECORDS SUMMARY | 2025-06-22 21:05 | XMS_ITS | Encounter Summary ---
Author Organization [employer] Address 75 [facility] 7t [place] [address] Care Team Providers Care Lead Loader Name Role Phone Joe Garcia PharmD Unavailable [phone] Karli Mccloud MD Primary Care Provider [phone] Encounter Details Date Type Department Care Team (Latest Contact Info) Description 06/22/2025 Travel Social History Tobacco Use Types Packs/Day [...] the past 12 months, has t he [employer], gas, oil or water [employer] threatened to shut off services in your [...] Description 07/07/2025 10:00 AM EST Medication Management [address] [address] Joe Garcia, PharmD [address] [place] [address] 08/07/2025 9:30 AM EST Clinical Support [address] [address] Tanya Cope RN 09/05/2025 9:30 AM EST Clinical Support [address] [address] Tanya Cope, RN documented as of this encounter Goals Goal Patient Goal Type Associated Problems Recent Progress Patient-Stated? Author Help patients manage their type 2 diabetes Care Plan Help patients manage their type 2 diabetes No Tanya Cpoe, LUIS Weekly blood pressure task Care Plan Weekly blood pressure task No Tanya Cope, LUIS Help patients manage their type 2 diabetes [...] Weekly blood pressure task No Joe Garcia, Adelaida Weekly blood pressure task Care Plan Weekly [...] has chronic kidney disease No Prisca, Tanya, RN Patient has chronic kidney disease Care [...] Cope RN documented as of this encounter Visit [...] documented as of this encounter Care Teams Lead Loader Relationship Specialty Start Date End Date Karli Mccloud MD 230 [place] [address] PCP - General Family Medicine 03/22/25 Joe Garcia, Adelaida 230 [place] [address] Pharmacist Internal Medicine 07/04/24 Elmer Lisa Behavioral Health TechEnrober Tender 10/09/23 documented as of this encounter
--- OUTSIDE RECORDS SUMMARY | 2025-06-22 21:05 | XMS_ITS | Encounter Summary ---
Author Organization [employer] Address 75 [facility] 7t [place] [address] Care Team Providers Care Passenger Car Cleaning Supervisor Name Role Phone Marleni Whyte Primary Care Provider Joe Garcia PharmD Unavailable [phone] Zuhair Cabral RN Unavailable [phone] Wen Rock Unavailable Karli cMcloud MD Primary Care Provider [phone] Reason for Visit * Reason Comments Med Refill Encounter Details Date Type Department Care Team (Late st Contact Info) Description 11/06/[address] [facility] MEDICINE 230 [place], [place] [phone] Marleni Whyte ANP 230 [place], [place] [phone] Other chronic pain Social History Tobacco Use [...] Description 07/07/2025 10:00 AM EST Medication Management [address] [address] Joe Garcia, PharmD [address] [place] [address] 08/07/2025 9:30 AM EST Clinical Support [address] [address] Tanya Cope, LUIS 09/05/2025 9:30 AM EST Clinical Support [address] [address] Tanya Cope, LUIS documented as of this encounter Visit Diagnoses Diagnosis Other chronic pain documented in this encounter Additional Health Concerns Assessment Noted Time PHQ-9 Depression Total Score: 0 08/20/19 23 2:04 PM EST documented as of this encounter Care Teams Passenger Car Cleaning Supervisor Relationship Specialty Start Date End Date Marleni Whyte ANP [address] [place] [address] PCP - General Family Medicine 06/23/22 03/21/25 Karli Mccloud MD [address] [place] [address] PCP - General Family Medicine 03/22/25 Joe Garcia, PharmD [address] [place] [address] Pharmacist Internal Medicine 07/04/24 Zuhair Cabral, RN [address] [place] [address] Registered Nurse Family Medicine 02/27/25 06/12/25 Wen Rock 02/27/25 06/06/25 Elmer Lisa Ham BonerNursing Home Assistant Administrator 10/09/23 documented as of this encounter
--- OUTSIDE RECORDS SUMMARY | 2025-06-22 21:05 | XMS_ITS | Encounter Summary ---
Author Organization [employer] Address [address] [facility] 7t [place] [address] Care Team Providers Care Environmental Science Technician Name Role Phone Joe Garcia PharmD Unavailable [phone] Karli Mccloud MD Primary Care Provider [phone] Reason for Visit * Reason Onset Date Comments Telephone Call 06/19/2025 Reschedule DIRECTOR OF DONOR RELATIONS Renewalappt 06/19/2025 Encounter Details Date Type Department Care Team (Late st Contact Info) Description 06/19/2025 Telephone [facility] [address] [place], [place] [phone] Karli Mccloud MD [address] [place], [place] [phone] Telephone Call; Reschedule DIRECTOR OF DONOR RELATIONS Renewalappt Social History Tobacco Use Types Packs/Day Years [...] encounter Miscellaneous Notes * Telephone Encounter - Cachorro Cope RN - 06/19/2025 1:02 PM EST TC to patient, BINDERY MACHINE SETTER/SET UP OPERATOR managing appts for pt. Rescheduled DIRECTOR OF DONOR RELATIONS Renewal appointment for 06/22/25 @ 10:30a * Telephone Encounter - Rosa Cuellar - 06/19/2025 8:25 AM EST Called pt primary contact BINDERY MACHINE SETTER/SET UP OPERATOR answered. I asked if he was aware of 10 am apt with DIRECTOR OF DONOR RELATIONS RN cachorro. BINDERY MACHINE SETTER/SET UP OPERATOR stated yes he was the one bringing pt to apt. I informed him apt was cancelled and Cachorro would be reaching out to reschedule apt. BINDERY MACHINE SETTER/SET UP OPERATOR understood and stated he would inform pt. documented in this encounter Plan of Treatment Upcoming Encounters Date Type Department Care Team (Late st Contact Info) Description 07/07/2025 10:00 AM EST Medication Management [address] [address] Joe Garcia, PharmD [address] [place] [address] 08/07/2025 9:30 AM EST Clinical Support [address] [address] Cachorro Cope RN 09/05/2025 9:30 AM EST Clinical Support [address] [address] Cachorro Cope RN documented as of this encounter Goals Goal Patient Goal Type Associated Problems Recent Progress Patient-Stated? Author Help patients manage their type 2 diabetes Care Plan Help patients manage their type 2 diabetes No Cachorro Cope RN Weekly blood pressure task Care Plan Weekly blood pressure task No Cachorro Cope RN Help patients manage their type 2 diabetes Care Plan Help patients manage their type 2 diabetes No Cachorro Cope RN Patient has chronic kidney disease Care Plan Patient has chronic kidney disease No Cachorro Cope RN Weekly blood pressure task Care Plan Weekly blood pressure task No Cachorro Cope RN Patient has chronic kidney disease Care Plan Patient has chronic kidney disease No Cachorro Cope RN Weekly blood pressure task Care [...] Care Plan Weekly blood pressure task No Rosa Cuellar Weekly blood pressure task Care Plan Weekly blood pressure task No Rosa Cuellar Patient has chronic kidney disease Care Plan Patient has chronic kidney disease No Polo Rosa Patient has chronic kidney disease Care Plan Patient has chronic kidney disease No Cuellar, Rosa Weekly blood pressure task Care Plan Weekly blood pressure task No Cachorro Cope RN Weekly blood pressure task Care Plan Weekly blood pressure task No Cachorro Cope RN Patient has chronic kidney disease Care Plan Patient has chronic kidney disease No Cachorro Cope RN Patient has chronic kidney disease Care Plan Patient has chronic kidney disease No Cachorro Cope RN documented as of this encounter [...] 06/19/2025 Patient has chronic kidney disease 06/19/2025 Assessment Noted Time PHQ-9 Depression Total Score: 19 025 2:58 PM EDT documented as of this encounter Care Teams Environmental Science Technician Relationship Specialty Start Date End Date Karli Mccloud MD [address] [place] [address] PCP - General Family Medicine 03/22/25 Joe Garcia, Adelaida [address] [place] [address] Pharmacist Internal Medicine 07/04/24 Elmer Lisa Counselor AideDirector Child Abuse Therapy 10/09/23 documented as of this encounter
--- OUTSIDE RECORDS SUMMARY | 2025-06-22 21:05 | XMS_ITS | Encounter Summary ---
Author Organization [employer] Address [address] [facility] 7t [place] [address] Care Team Providers Care Leverman Name Role Phone Marleni Whyte Primary Care Provider Joe Garcia PharmD Unavailable [phone] Zuhair Cabral RN Unavailable [phone] Wen Rock Unavailable Karli Mccloud MD Primary Care Provider Reason for Visit * Reason Comments Med Refill Encounter Details Date Type Department Care Team (Late st Contact Info) Description 11/06/2022 Refill [facility]INE [address] [place], [place] [phone] Marleni Whyte ANP [address] [place], [place] [phone] Other chronic pain Social History Tobacco Use [...] Description 07/07/2025 10:00 AM EST Medication Management [address] [address] Joe Garcia, PharmD [address] [place] [address] 08/07/2025 9:30 AM EST Clinical Support [address] [address] Tanya Cope, LUIS 09/05/2025 9:30 AM EST Clinical Support [address] [address] Tanya Cope, LUIS documented as of this encounter Visit Diagnoses Diagnosis Other chronic pain documented in this encounter Additional Health Concerns Assessment Noted Time PHQ-9 Depression Total Score: 0 08/20/19 23 2:04 PM EST documented as of this encounter Care Teams Leverman Relationship Specialty Start Date End Date Marleni Whyte ANP [address] [place] [id number] PCP - General Family Medicine 06/23/22 03/21/25 Karli Mccloud MD [address] [place] [address] PCP - General Family Medicine 03/22/25 Joe Garcia, PharmD [address] [place] [address] Pharmacist Internal Medicine 07/04/24 Zuhair Cabral, RN [address] [place] [address] Registered Nurse Family Medicine 02/27/25 06/12/25 Wen Rock 02/27/25 06/06/25 Elmer Lisa Diesel Locomotive FirerLead Python Developer 10/09/23 documented as of this encounter
--- OUTSIDE RECORDS SUMMARY | 2025-06-22 21:05 | XMS_ITS | Encounter Summary ---
Author Organization [employer] Address [address] [facility] 7t [place] [address] Care Team Providers Care Celery Stripper Name Role Phone Joe Garcia PharmD Unavailable [phone] Karli Mccloud MD Primary Care Provider [phone] Reason for Visit * Reason Onset Date Comments Med Refill 06/22/2025 Encounter Details Date Type Department Care Team (Late st Contact Info) Description 06/22/2025 Refill [facility] MEDICINE [address] [place] [address] Tanya Cope RN Primary osteoarthritis of right knee Social History [...] Description 07/07/2025 10:00 AM EST Medication Management [address] [address] Joe Garcia, PharmD [address] [place] [id number] 08/07/2025 9:30 AM EST Clinical Support [address] [address] Tanya Cope, RN 09/05/2025 9:30 AM EST Clinical Support [address] [address] Tanya Cope, RN documented as of this [...] has chronic kidney disease No Joe Garcia PharmFernando Patient has chronic kidney disease Care [...] documented as of this encounter Care Teams Celery Stripper Relationship Specialty Start Date End Date Karli Mccloud MD [address] [place] [address] PCP - General Family Medicine 03/22/25 Joe Garcia, Adelaida [address] [place] [address] Pharmacist Internal Medicine 07/04/24 Elmer Lisa Property InvestorMeat Manager 10/09/23 documented as of this encounter
--- OUTSIDE RECORDS SUMMARY | 2025-06-22 21:05 | XMS_ITS | Encounter Summary ---
Author Organization [employer] Address [address] [facility] 7t [place] [address] Care Team Providers Care Sybase Developer Name Role Phone Joe Garcia PharmD Unavailable [phone] Karli Mccloud MD Primary Care Provider [phone] Encounter Details Date Type Department Care Team (Late st Contact Info) Description 06/22/2025 Results Follow-Up [facility] MEDICINE [address] [place], [place] [phone] Karli Mccloud MD [address] [place] [address] POCT [place]-14 Urine Drug Screen Social History Tobacco Use Types Packs/Day Years [...] as of this encounter Miscellaneous Notes * Result Encounter Note - Karli Mccloud MD - 06/22/2025 12:54 PM EST Noted positive for cocaine and oxycodone. Expected positive for oxycodone alone. Will check confirmation send out for cocaine, and then re-test in 3-5 weeks. documented in this encounter Plan of Treatment Upcoming Encounters Date Type Department Care Team (Late st Contact Info) Description 07/07/2025 10:00 AM EST Medication Management [facility] MEDICINE [address] [place] [address] Joe Garcia, PharmD [address] [place] [address] 08/07/2025 9:30 AM EST Clinical Support [address] [address] Tanya Cope RN 09/05/2025 9:30 AM EST Clinical Support [address] [address] Tanya Cope, LUIS documented as of this encounter Goals Goal Patient Goal Type Associated Problems Recent Progress Patient-Stated? Author Help patients manage their type 2 diabetes Care Plan Help patients manage their type 2 diabetes No Tanya Cope, LUIS Weekly blood pressure task Care Plan Weekly blood pressure task No Tanya Cope, LUIS Help patients manage their type 2 diabetes Care Plan Help patients manage their type 2 diabetes No Tanya Cope, LUIS Patient has chronic kidney disease Care Plan Patient has chronic kidney disease No Tanya Cope, LUIS Weekly blood pressure task Care Plan Weekly blood pressure task No Tanya Cope, LUIS Patient has chronic kidney disease Care [...] Plan Patient has chronic kidney disease No Culelar, Rosa Weekly blood pressure task Care Plan Weekly blood pressure task No Tanya Cope RN Weekly blood pressure task Care Plan Weekly blood pressure task No Tanya Cope, LUIS Patient has chronic kidney disease Care Plan Patient has chronic kidney disease No Tanya Cope, LUIS Patient has chronic kidney disease Care Plan Patient has chronic kidney disease No Tanya Cope, LUIS Weekly blood pressure task Care Plan [...] documented as of this encounter Care Teams Sybase Developer Relationship Specialty Start Date End Date Karli Mccloud MD [address] [place] [address] PCP - General Family Medicine 03/22/25 Joe Garcia, Adelaida [address] [place] [address] Pharmacist Internal Medicine 07/04/24 Elmer Lisa Plasma Center TechnicianCnmt 10/09/23 documented as of this encounter
--- OUTSIDE RECORDS SUMMARY | 2025-06-22 21:05 | XMS_ITS | Encounter Summary ---
Author Organization [employer] Address [address] [facility] 7t [place] [address] Care Team Providers Care Medical Microbiologist Name Role Phone Marleni Whyte Primary Care Provider [phone] Joe Garcia PharmD Unavailable [phone] Zuhair Cabral RN Unavailable [phone] Wen Rock Unavailable Karli Mccloud MD Primary Care Provider Reason for Visit * Reason Comments Med Refill Encounter Details Date Type Department Care Team (Late st Contact Info) Description 10/06/2022 Refill [facility] MEDICINE [address] [place], [place] [phone] Marleni Whyte ANP [address] [place], [place] [phone] Other chronic pain Social History Tobacco Use [...] Description 07/07/2025 10:00 AM EST Medication Management [address] [address] Joe Gracia, PharmD [address] [place] [address] 08/07/2025 9:30 AM EST Clinical Support [address] [address] Tanya Cope, LUIS 09/05/2025 9:30 AM EST Clinical Support [address] [address] Tanya Cope, LUIS documented as of this encounter Visit Diagnoses Diagnosis Other chronic pain documented in this encounter Additional Health Concerns Assessment Noted Time PHQ-9 Depression Total Score: 0 08/20/19 23 2:04 PM EST documented as of this encounter Care Teams Medical Microbiologist Relationship Specialty Start Date End Date Marleni Whyte ANP [address] [place] [id number] PCP - General Family Medicine 06/23/22 03/21/25 Karli Mccloud MD [address] [place] [address] PCP - General Family Medicine 03/22/25 Joe Garcia, PharmD [address] [place] [address] Pharmacist Internal Medicine 07/04/24 Zuhair Cabral, LUIS [address] [place] [address] Registered Nurse Family Medicine 02/27/25 06/12/25 Wen Rock 02/27/25 06/06/25 Elmer Lisa Delivery Driver/Customer ServiceInformation Systems Security Officer 10/09/23 documented as of this encounter
== END 2025-06-22 18:20 | disposition home or self-care (01) ==
LOC: HO.HHCLNP 18:19
PROVIDERS: Visit Provider General Practice
DX: Z51.81 Encounter for therapeutic drug level monitoring (principal); Z79.891 Long term (current) use of opiate analgesic
CPT/HCPCS: 36415; 80353